=== PATIENT | female | born 1955 | race Caucasian/White ===

== ENCOUNTER 2017-01-09 13:27 | Outpatient (CLI) ==
[2015-11-21 15:39] VITALS: BMI 36.0
--- NOTE | 2017-01-12 08:41 | MAMMO ---
EXAM: Bilateral digital screening mammogram History: Screening Comparison: Bilateral mammogram 06/19/2015 Findings: MLO and CC views of bilateral breasts demonstrate predominately fatty replaced breast par enchyma. Stable benign bilateral breast calcifications. There are no dominant masses, no suspiciou s microcalcifications and no architectural distortions Impression: Benign stable mammogram. Recommend followup routine screening mammography in 1 year. BIRADS 2
== END 2017-01-09 13:28 | disposition home or self-care (01) ==
LOC: RAD 13:27
PROVIDERS: ATTEND Internal Medicine
DX: Z12.31 Encounter for screening mammogram for malignant neoplasm of breast (principal)

== ENCOUNTER 2017-02-03 00:01 | Outpatient (POV) ==
[2015-11-21 15:39] VITALS: BMI 36.0
== END 2017-02-03 00:02 ==
LOC: OUTPT 00:01
PROVIDERS: ATTEND Otolaryngology
DX: H91.90 Unspecified hearing loss, unspecified ear (principal)
CPT/HCPCS: 92557; 92567

== ENCOUNTER 2017-08-20 11:11 | Emergency (ER) ==
[2017-08-20 11:15] VITALS: BP 110/78; TEMP 98.1; BMI 36.6
[2017-08-20 11:45] LABS: BASOPHILS % (AUTO) 0.4 % (0.0-3.0); EOSINOPHILS # (AUTO) 0.1 K/ul (0.0-0.7); EOSINOPHILS % (AUTO) 0.5 % (0.0-7.0); HEMATOCRIT 38.1 % (37.0-47.0); HEMOGLOBIN 13.3 g/dl (12.0-16.0); IMMATURE GRANULOCYTE % (AUTO) 0.4 % (0.0-5.0); LYMPHOCYTES # (AUTO) 2.5 K/uL (0.60-3.4); LYMPHOCYTES % (AUTO) 22.2 (10.0-50.0); MEAN CORPUSCULAR HEMOGLOBIN 30.9 pg (27.0-31.0); MEAN CORPUSCULAR HGB CONC 34.9 (31.8-35.4); MEAN CORPUSCULAR VOLUME 88.4 fl (81.0-99.0); MONOCYTES # (AUTO) 0.9 K/uL (0.4-2.0); MONOCYTES % (AUTO) 7.9 (0-10); NEUTROPHILS # (AUTO) 7.7 K/ul (2.0-6.9); NEUTROPHILS % (AUTO) 68.6; PLATELET COUNT 261 10^3/uL (140-440); RED BLOOD COUNT 4.31 10^6/ul (4.20-5.40); WHITE BLOOD COUNT 11.16 K/ul (4.6-10.2)
--- NOTE | 2017-08-20 11:48 | ED.PDOC ---
General ED Provider: Dr. DEVENDRA BALDERRAMA Chief Complaint: Abdominal Pain Stated Complaint: ABDOMINAL PAIN RLQ Time Seen by Physician: 11:20 (PAIN COSISTANT WITH PRIOR DIVERTICULAR ATTACK) Mode of Arrival: Walk-In Information Source: Patient Exam Limitations: No limitations Primary Care Provider: THEODORE VICTORIA Nursing and Triage Documentation Reviewed and Agree: Yes GI Complaint Exam - Abdominal Pain Complaint/Exam Onset: Gradual Duration: 1 DAY RLQ Timing: Constant Initial Severity: Moderate Current Severity: Moderate Location of Pain: RLQ Radiates To: Reports: RLQ Character: Reports: Aching, Cramping Aggravating: Reports: Food Alleviating: Reports: Rest Associated Signs and Symptoms: Reports: Diarrhea. Denies: Diaphoresis, Fever, Cough, Chest pain, Dizziness, Back pain, Constipation, Blood in stool, Dysuria, Urinary frequency, Decreased urine output, Decreased appetite, Vaginal bleeding , Vaginal discharge, Nausea, Vomiting, Sore throat, Decreased activity Related History: Reports: Similar episode (DIVERTICULITIS PER PT'S ACCOUNT) AAA Risk Factors: Reports: Hypertension Cardiac Risk Factors: Reports: CAD Ectopic Risk Factors: Reports: None Ovarian Torsion Risk Factors: Reports: None Surgical Obstruction Risk Factors: Reports: None Related Surgical History: Reports: None Patient Rh Status: Unknown Abdominal Findings: Present: None Differential Diagnoses: ACS, AMI, Appendicitis, Bowel Obstruction, Constipation Review of Systems - Review Of Systems Constitutional: Reports: No symptoms Eyes: Reports: No symptoms Ears, Nose, Mouth, Throat: Reports: No symptoms Respiratory: Reports: No symptoms Cardiac: Reports: No symptoms GI: Reports: Abdominal pain, Diarrhea, Poor appetite : Reports: No symptoms Musculoskeletal: Reports: No symptoms Skin: Reports: No symptoms Neurological: Reports: No symptoms Endocrine: Reports: No symptoms Hematologic/Lymphatic: Reports: No symptoms All Other Systems: Reviewed and Negative Past Medical History - Past Medical History Endocrine: Reports: Dyslipidemia Cardiovascular: Reports: CAD, [place], Hypertension Respiratory: Reports: None Hematological: Reports: None Gastrointestinal: Reports: Diverticulitis Genitourinary: Reports: None Neuro/Psych: Reports: TIA, Depression Musculoskeletal: Reports: Arthritis Cancer: Reports: None Last Menstrual Period: HYSTERECTOMY Other Pertinent Past Medical History: coronary embolism - Surgical History General Surgical History: Reports: Hysterectomy, Orthopedic (CERVICAL FUSION). Denies: CABG (HEART CATH, coronary embolism) - Family History Family History: Reports: Unknown - Social History Smoking Status: Never smoker Hx Substance Use: No Alcohol Screening: None - Immunizations Tetanus Shot up to Date: Yes Physical Exam - Physical Exam Appearance: Well-appearing, No pain distress, Well-nourished Eyes: PANCHITO, EOMI, Conjunctiva clear ENT: Ears normal, Nose normal, Oropharynx normal Respiratory: Airway patent, Breath sounds clear, Breath sounds equal, Respirations nonlabored Cardiovascular: RRR, Pulses normal, No rub, No murmur GI/: Tender (RLQ) Musculoskeletal: Normal strength, ROM intact, No edema, No calf tenderness Skin: Warm, Dry, Normal color Neurological: Sensation intact, Motor intact, Reflexes intact, Cranial nerves intact, Alert, Oriented Psychiatric: Affect appropriate, Mood appropriate Critical Care Note - Critical Care Note Total Time (mins): 0 Course - Course Orders, Labs, Meds: Orders Category Date Time Status AMYLASE Stat LAB 08/20/17 11:32 Ordered CBC W/ AUTO DIFF Stat LAB 08/20/17 11:32 Ordered COMPREHENSIVE METABOLIC PANEL Stat LAB 08/20/17 11:32 Ordered LIPASE Stat LAB 08/20/17 11:[address] ABDOMEN/PELVIS WO CONTRAST Stat RADS 08/20/17 11:32 Ordered Vital Signs: Temp Pulse Resp BP Pulse Ox 08/20/17 11:12 98.1 F 98 H 20 110/78 95 Departure - Departure Discharge Problem: Abdominal pain Instructions: Abdominal Pain (ED) Condition: Good Pt referred to PMD for follow-up: Yes Additional Instructions: Please call your Family Physician as soon as possible to schedule a follow-up appointment. Allergies/Adverse Reactions: Allergies clonidine Adverse Reaction (Verified 08/20/17 11:15) clopidogrel bisulfate [From Plavix] Adverse Reaction (Verified 08/20/17 11:15) Latex, Natural Rubber Adverse Reaction (Verified 08/20/17 11:15) oxycodone HCl [From OxyContin] Adverse Reaction (Verified 08/20/17 11:15) Penicillins Adverse Reaction (Verified 08/20/17 11:15) senna Adverse Reaction (Verified 08/20/17 11:15) Ernmqio-Old-Dbf Reductase Inhibitor Adverse Reaction (Verified 08/20/17 11:15) antipsychotics Adverse Reaction (Uncoded 08/20/17 11:15) Home Medications: Ambulatory Orders Alprazolam [Xanax] 0.5 mg PO PRN PRN 03/02/15 Alprazolam [Xanax] 2 mg PO BEDTIME 11/20/14 Bisoprolol Fumarate/Hctz [Ziac 5-6.25 mg] 1 tab PO DAILY 11/20/14 Doxepin HCl 10 mg PO BEDTIME 11/20/14 Furosemide [Lasix] 40 mg PO DAILY 11/20/14 Losartan Potassium 150 mg PO DAILY 11/20/14 Multivit-Min/FA/Lycopene/Lut [Centrum Silver Tablet] 1 tab PO DAILY 11/20/14 Niacin [Niaspan] 1,000 mg PO BEDTIME 11/20/14 Potassium Chloride [Klor-Con M15] 30 meq PO DAILY 11/20/14 Trazodone HCl 200 mg PO BEDTIME 11/20/14 Gabapentin [Neurontin] 300 mg PO BEDTIME 11/21/15 Cholecalciferol (Vitamin D3) [Vitamin D3] 2,000 units PO DAILY 11/23/15 Lactobacillus Acidophilus [Probiotic] 1 each PO DAILY 11/23/15 Magnesium Oxide [Mag-Ox] 400 mg PO DAILY 11/23/15 Vilazodone HCl [Viibryd] 60 mg PO QAM 11/23/15 Disposition Discussed With: Patient, Family
[2017-08-20 12:13] LABS: ALBUMIN 3.3 g/dL (3.4-5.0); ALBUMIN/GLOBULIN RATIO 0.79; ANION GAP 14.6; BILIRUBIN,TOTAL 0.84 mg/dL (0.00-1.20); BUN/CREATININE RATIO 14.6; CALCIUM 8.8 mg/dL (8.2-10.2); CREATININE 0.89 mg/dL (0.60-1.30); POTASSIUM 3.6 mmol/L (3.5-5.10); TOTAL PROTEIN 7.5 g/dL (5.8-8.1)
[2017-08-20] MEDS ORDERED: ZOFRAN 4 MG/2 ML IVP STA ×2 (12:54→16:10)
[2017-08-20] MEDS ORDERED: DILAUDID 2 MG/ML SYRINGE IVP STA (12:54)
[2017-08-20] MEDS ORDERED: DILAUDID 2 MG/ML SYRINGE IM PRN (13:04)
[2017-08-20] MEDS ORDERED: ZOFRAN 4 MG/2 ML IM STA (13:04)
[2017-08-20] MEDS ORDERED: MORPHINE 2 MG/ML SYRINGE IM STA (13:06)
--- NOTE | 2017-08-20 14:00 | CT ---
EXAM: CT of the abdomen pelvis with contrast History: Right lower quadrant abdominal pain. Comparison: CT abdomen pelvis 11/23/2015 Technique: Multiplanar CT images through the abdomen pelvis were obtained without the administration of IV contrast Findings: Lung bases are free of consolidation. No acute osseous abnormalities. Moderate to severe degenerate changes of the left hip joint. Severe degenerative disc disease at L5-S1. Status post cholecystectomy. Mild atherosclerotic vascular calcifications. No peripancreatic inflam mation. Calcified granulomas within the spleen. The liver is fatty. No renal stones and no hydrone phrosis. Adrenal glands are unremarkable. No bowel obstruction. The appendix is not dilated or inf lamed. Colonic diverticulosis. There is inflammation surrounding the sigmoid colon within the pelvi s. No abscess. No bladder wall thickening. Uterus is not seen. No free air. Impression: 1. Acute uncomplicated sigmoid diverticulitis. 2. Hepatic steatosis.
[2017-08-20] MEDS ORDERED: ROCEPHIN 1 GM in SODIUM CHLORIDE 50 ML IV STA (15:27)
[2017-08-20] MEDS ORDERED: ROCEPHIN ONE ×2 (15:29→15:56)
[2017-08-20] MEDS ORDERED: FLAGYL PO STA (15:30)
[2017-08-20] MEDS ORDERED: MORPHINE 4 MG/ML VIAL IVP STA (15:33)
== END 2017-08-20 16:41 | disposition home or self-care (01) ==
LOC: ED 11:11
DX: R10.31 Right lower quadrant pain (principal); R19.7 Diarrhea, unspecified; I10 Essential (primary) hypertension; I25.10 Atherosclerotic heart disease of native coronary artery without angina pectoris; E78.5 Hyperlipidemia, unspecified; I25.2 Old myocardial infarction; Z79.899 Other long term (current) drug therapy; Z86.73 Personal history of transient ischemic attack (TIA), and cerebral infarction without residual deficits; Z87.19 Personal history of other diseases of the digestive system
CPT/HCPCS: 36415; 80053; 82150; 83690; 85025; 96365; 96372; 96375; 99285

== ENCOUNTER 2017-08-22 17:28 | Emergency (ER) ==
[2017-08-22 17:28] VITALS: BMI 36.6
[2017-08-22 17:35] VITALS: BP 122/76; TEMP 97.6
[2017-08-22] MEDS ORDERED: SODIUM CHLORIDE 1,000 ML IV STA ×2 (17:45→19:10)
[2017-08-22 18:04] LABS: BASOPHILS # (AUTO) 0.1 K/uL (0-0.2); BASOPHILS % (AUTO) 0.6 % (0.0-3.0); EOSINOPHILS # (AUTO) 0.1 K/ul (0.0-0.7); EOSINOPHILS % (AUTO) 0.6 % (0.0-7.0); HEMATOCRIT 38.4 % (37.0-47.0); HEMOGLOBIN 13.3 g/dl (12.0-16.0); IMMATURE GRANULOCYTE % (AUTO) 0.5 % (0.0-5.0); LYMPHOCYTES # (AUTO) 2.2 K/uL (0.60-3.4); LYMPHOCYTES % (AUTO) 26.5 (10.0-50.0); MEAN CORPUSCULAR HEMOGLOBIN 30.7 pg (27.0-31.0); MEAN CORPUSCULAR HGB CONC 34.6 (31.8-35.4); MEAN CORPUSCULAR VOLUME 88.7 fl (81.0-99.0); MONOCYTES # (AUTO) 0.6 K/uL (0.4-2.0); MONOCYTES % (AUTO) 6.8 (0-10); NEUTROPHILS # (AUTO) 5.5 K/ul (2.0-6.9); PLATELET COUNT 301 10^3/uL (140-440); RED BLOOD COUNT 4.33 10^6/ul (4.20-5.40); WHITE BLOOD COUNT 8.39 K/ul (4.6-10.2)
[2017-08-22] MEDS ORDERED: MORPHINE 4 MG/ML VIAL IVP STA (18:13)
[2017-08-22] MEDS ORDERED: ZOFRAN 4 MG/2 ML IVP STA (18:14)
[2017-08-22 18:24] LABS: ALBUMIN 3.3 g/dL (3.4-5.0); ALBUMIN/GLOBULIN RATIO 0.73; ANION GAP 17.7; BILIRUBIN,TOTAL 0.51 mg/dL (0.00-1.20); BUN/CREATININE RATIO 15.9; CALCIUM 9.1 mg/dL (8.2-10.2); CREATININE 0.88 mg/dL (0.60-1.30); POTASSIUM 3.7 mmol/L (3.5-5.10); TOTAL PROTEIN 7.8 g/dL (5.8-8.1)
--- NOTE | 2017-08-22 19:08 | ED.PDOC ---
General ED Provider: Dr. MELISSA SALDIVAR Chief Complaint: Abdominal Pain Stated Complaint: Patient is a 62 year old female who comes to the ER with Abdominal pain for the last few days. She was seen yesterday in the ER and had A CT scan which showed uncomplicated diverticulitis. She return due to severe abdominal pain. Has tried Hydrocodone but has not helped. She has been taking her antibiotics as prescribed. Time Seen by Physician: 19:05 Mode of Arrival: Wheelchair Information Source: Patient Exam Limitations: No limitations Primary Care Provider: THEODORE VICTORIA Nursing and Triage Documentation Reviewed and Agree: Yes Review of Systems - Review Of Systems Constitutional: Reports: No symptoms Eyes: Reports: No symptoms Ears, Nose, Mouth, Throat: Reports: No symptoms Respiratory: Reports: No symptoms Cardiac: Reports: No symptoms GI: Reports: Abdominal pain, Constipated, Nausea, Poor appetite, Poor fluid intake : Reports: No symptoms Musculoskeletal: Reports: No symptoms Skin: Reports: No symptoms Neurological: Reports: Anxiety Endocrine: Reports: No symptoms Hematologic/Lymphatic: Reports: No symptoms All Other Systems: Reviewed and Negative Past Medical History - Past Medical History Endocrine: Reports: Dyslipidemia Cardiovascular: Reports: CAD, [place], Hypertension Respiratory: Reports: None Hematological: Reports: None Gastrointestinal: Reports: Diverticulitis Genitourinary: Reports: None Neuro/Psych: Reports: TIA, Depression Musculoskeletal: Reports: Arthritis Cancer: Reports: None Last Menstrual Period: NA Other Pertinent Past Medical History: coronary embolism - Surgical History General Surgical History: Reports: Hysterectomy, Orthopedic (CERVICAL FUSION). Denies: CABG (HEART CATH, coronary embolism) - Family History Family History: Reports: Unknown - Social History Smoking Status: Never smoker Hx Substance Use: No Alcohol Screening: None Physical Exam - Physical Exam Appearance: Ill-appearing, Obese Ill-appearing: Moderate Pain Distress: Severe Eyes: PANCHITO, EOMI, Conjunctiva clear ENT: Dry mucosa Neck: Supple Respiratory: Airway patent, Breath sounds clear, Breath sounds equal, Respirations nonlabored Cardiovascular: RRR, Pulses normal, No rub, No murmur GI/: Soft, Tender (mild diffuse) Musculoskeletal: Normal strength, ROM intact, No edema, No calf tenderness Skin: Warm, Dry, Normal color Neurological: Sensation intact, Alert, Oriented Psychiatric: Anxious Re-Evaluation - Re-Evaluation Time of Re-Evaluation: 19:33 Status: Improved Vital Signs Stable: Yes Pain Level: gone Critical Care Note - Critical Care Note Total Time (mins): 0 Course - Course Hematology/Chemistry: 08/22/17 17:55 08/22/17 17:55 Orders, Labs, Meds: Lab Review 08/22/17 12 17:55 17:55 WBC 8.39 RBC 4.33 Hgb 13.3 Hct 38.4 MCV 88.7 MCH 30.7 MCHC 34.6 RDW Coeff of Mayra 11.9 Plt Count 301 Immature Gran % (Auto) 0.5 Neut % (Auto) 65.0 Lymph % (Auto) 26.5 [place] % (Auto) 6.8 Eos % (Auto) 0.6 Baso % (Auto) 0.6 Immature Gran # (Auto) 0.0 Neut # 5.5 Lymph # 2.2 [place] # 0.6 Eos # 0.1 Baso # 0.1 Sodium 139 Potassium 3.7 Chloride 103 Carbon Dioxide 22 L Anion Gap 17.7 BUN 14 Creatinine 0.88 Estimated GFR (MDRD) 66.00 BUN/Creatinine Ratio 15.90 Glucose 96 Calcium 9.1 Total Bilirubin 0.51 AST 22 ALT 21 Alkaline Phosphatase 45 L Total Protein 7.8 Albumin 3.3 L Globulin 4.5 Albumin/Globulin Ratio 0.73 Amylase 34 Lipase 20 Orders Category Date Time Status ED IV/MEDIPORT/POWERPORT .ONCE EMERGENCY 08/22/17 17:45 Active AMYLASE Stat LAB 08/22/17 17:55 Completed CBC W/ AUTO DIFF Stat LAB 08/22/17 17:55 Completed COMPREHENSIVE METABOLIC PANEL Stat LAB 08/22/17 17:55 Completed LIPASE Stat LAB 08/22/17 17:55 Completed URINALYSIS C & S IF INDICATED Stat LAB 08/22/17 17:45 Uncollected 0.9 % Sodium Chloride [Saline Flush] MEDS 08/22/17 17:45 Ordered 1 syr IVF PRN PRN Morphine Sulfate [Morphine 4 mg/ml Vial] MEDS 08/22/17 18:13 Discontinued 4 mg IVP ONCE STA Ondansetron HCl/Pf [Zofran 4 mg/2 ml] MEDS 08/22/17 18:14 Discontinued 4 mg IVP ONCE STA Sodium Chloride 0.9% [Sodium Chloride] 1,000 ml MEDS 08/22/17 17:45 Discontinued IV BOLUS Sodium Chloride 0.9% [Sodium Chloride] 1,000 ml MEDS 08/22/17 19:10 Active IV BOLUS Medications Generic Name Dose Route Start Last Admin Trade Name Freq PRN Reason Stop Dose Admin Sodium Chloride 1,000 mls @ 1,000 mls/hr 08/22/17 19:10 08/22/17 19:12 Sodium Chloride IV 08/22/17 20:09 1,000 mls/hr BOLUS STA Administration Sodium Chloride 1 syr 08/22/17 17:45 Saline Flush IVF PRN PRN To flush IV Discontinued Medications Generic Name Dose Route Start Last Admin Trade Name Freq PRN Reason Stop Dose Admin Sodium Chloride 1,000 mls @ 1,000 mls/hr 08/22/17 17:45 08/22/17 18:20 Sodium Chloride IV 08/22/17 18:44 1,000 mls/hr BOLUS STA Administration Morphine Sulfate 4 mg 08/22/17 18:13 08/22/17 18:42 Morphine 4 Mg/Ml Vial IVP 08/22/17 18:14 4 mg ONCE STA Administration Ondansetron HCl 4 mg 08/22/17 18:14 08/22/17 18:39 Zofran 4 Mg/2 Ml IVP 08/22/17 18:15 4 mg ONCE STA Administration Vital Signs: Temp Pulse Resp BP Pulse Ox 08/22/17 17:28 97.6 F 74 16 122/76 93 L Departure - Departure Time of Disposition: 19:30 Disposition: HOME SELF-CARE Discharge Problem: Diverticulitis Qualifiers: Diverticulitis site: large intestine Diverticulitis bleeding: unspecified bleeding status Diverticulitis complication: without perforation or abscess Qualified Code(s): K57.32 - Diverticulitis of large intestine without perforation or abscess without bleeding Instructions: Diverticulitis (ED), Diverticulitis Diet (ED) Condition: Stable Pt referred to PMD for follow-up: Yes (3 days ) Additional Instructions: Push fluids Follow up with PCP in 3 days Continue your antibiosis as prescribed. Allergies/Adverse Reactions: Allergies clonidine Adverse Reaction (Verified 08/22/17 17:43) clopidogrel bisulfate [From Plavix] Adverse Reaction (Verified 08/22/17 17:43) Latex, Natural Rubber Adverse Reaction (Verified 08/22/17 17:43) oxycodone HCl [From OxyContin] Adverse Reaction (Verified 08/22/17 17:43) Penicillins Adverse Reaction (Verified 08/22/17 17:43) senna Adverse Reaction (Verified 08/22/17 17:43) Dhalxid-Cai-Hnp Reductase Inhibitor Adverse Reaction (Verified 08/22/17 17:43) antipsychotics Adverse Reaction (Uncoded 08/22/17 17:43) Home Medications: Ambulatory Orders Alprazolam [Xanax] 0.5 mg PO PRN PRN 11/20/14 Alprazolam [Xanax] 2 mg PO BEDTIME 11/20/14 Bisoprolol Fumarate/Hctz [Ziac 5-6.25 mg] 1 tab PO DAILY 11/20/14 Doxepin HCl 10 mg PO BEDTIME 11/20/14 Furosemide [Lasix] 40 mg PO DAILY 11/20/14 Losartan Potassium 150 mg PO DAILY 11/20/14 Multivit-Min/FA/Lycopene/Lut [Centrum Silver Tablet] 1 tab PO DAILY 11/20/14 Niacin [Niaspan] 1,000 mg PO BEDTIME 11/20/14 Potassium Chloride [Klor-Con M15] 30 meq PO DAILY 11/20/14 Trazodone HCl 200 mg PO BEDTIME 11/20/14 Gabapentin [Neurontin] 300 mg PO BEDTIME 11/21/15 Cholecalciferol (Vitamin D3) [Vitamin D3] 2,000 units PO DAILY 11/23/15 Lactobacillus Acidophilus [Probiotic] 1 each PO DAILY 11/23/15 Magnesium Oxide [Mag-Ox] 400 mg PO DAILY 11/23/15 Vilazodone HCl [Viibryd] 60 mg PO QAM 11/23/15 Ciprofloxacin HCl [Cipro] 500 mg PO Q12HR #14 tablet 08/20/17 Hydrocodone/Acetaminophen [[place] 10-325 Tablet] 1 each PO Q8HR #14 tablet Metronidazole [Flagyl] 500 mg PO Q6HR #30 tablet 08/20/17 Disposition Discussed With: Patient, Family
== END 2017-08-22 20:14 | disposition home or self-care (01) ==
LOC: ED 17:28
DX: K57.32 Diverticulitis of large intestine without perforation or abscess without bleeding (principal); Z79.899 Other long term (current) drug therapy
CPT/HCPCS: 36415; 80053; 82150; 83690; 85025; 96361; 96374; 96375; 99283

== ENCOUNTER 2017-08-24 12:41 | Emergency (ER) ==
[2017-08-24 12:57] VITALS: BP 151/92; TEMP 97.8; BMI 37.8
[2017-08-24 13:34] LABS: BASOPHILS # (AUTO) 0.1 K/uL (0-0.2); EOSINOPHILS # (AUTO) 0.1 K/ul (0.0-0.7); EOSINOPHILS % (AUTO) 0.8 % (0.0-7.0); HEMATOCRIT 37.8 % (37.0-47.0); HEMOGLOBIN 13.4 g/dl (12.0-16.0); IMMATURE GRANULOCYTE % (AUTO) 0.5 % (0.0-5.0); LYMPHOCYTES # (AUTO) 2.7 K/uL (0.60-3.4); LYMPHOCYTES % (AUTO) 43.6 (10.0-50.0); MEAN CORPUSCULAR HEMOGLOBIN 30.5 pg (27.0-31.0); MEAN CORPUSCULAR HGB CONC 35.4 (31.8-35.4); MEAN CORPUSCULAR VOLUME 85.9 fl (81.0-99.0); MONOCYTES # (AUTO) 0.6 K/uL (0.4-2.0); MONOCYTES % (AUTO) 9.9 (0-10); NEUTROPHILS # (AUTO) 2.7 K/ul (2.0-6.9); NEUTROPHILS % (AUTO) 44.2; PLATELET COUNT 341 10^3/uL (140-440); WHITE BLOOD COUNT 6.19 K/ul (4.6-10.2)
[2017-08-24 13:50] LABS: ALBUMIN 3.3 g/dL (3.4-5.0); ALBUMIN/GLOBULIN RATIO 0.8; ANION GAP 13.5; BILIRUBIN,TOTAL 0.56 mg/dL (0.00-1.20); BUN/CREATININE RATIO 7.86; CALCIUM 9.1 mg/dL (8.2-10.2); CREATININE 0.89 mg/dL (0.60-1.30); POTASSIUM 3.5 mmol/L (3.5-5.10); TOTAL PROTEIN 7.4 g/dL (5.8-8.1)
--- NOTE | 2017-08-24 14:03 | CT ---
EXAM: CT of the abdomen pelvis with contrast History: Abdominal pain. Comparison: CT abdomen pelvis 08/20/2017 Technique: Multiplanar CT images through the abdomen pelvis were obtained following administration o f IV contrast Findings: Lung bases are free of consolidation. No acute osseous abnormalities. Status post cholecystectomy. Fatty liver. Pancreas and adrenal glands are unremarkable. No renal m asses. Spleen is unremarkable. No dilated loops of bowel. No free air. No ascites. Bladder is no t well distended. Colonic diverticulosis. Persistent but improving diverticulitis of the sigmoid co [place]. No abscess. No perirectal inflammation. No renal masses. Uterus is not seen Impression: 1. Persistent but improving diverticulitis of the sigmoid colon. No abscess. 2. Hepatic steatosis
--- NOTE | 2017-08-24 14:40 | ED.PDOC ---
General ED Provider: Dr. DEVENDRA BALDERRAMA Chief Complaint: Abdominal Pain Stated Complaint: ABDOMINAL PAIN Time Seen by Physician: 13:00 (PT THINKS SHE IS DEHYDRATED ) Mode of Arrival: Wheelchair Information Source: Patient, Family Exam Limitations: No limitations Primary Care Provider: THEODORE VICTORIA Nursing and Triage Documentation Reviewed and Agree: Yes (SEEN IN ED BY MYSELF IN ED AND ON THURSDAY BY YARIEL) GI Complaint Exam - Abdominal Pain Complaint/Exam Onset: Gradual Duration: AT LEAST 1 WEEK RLQ Symptoms Are: Still present Timing: Intermittent Initial Severity: Mild Current Severity: Mild Location of Pain: RLQ Character: Reports: Aching Aggravating: Reports: None Alleviating: Reports: None Associated Signs and Symptoms: Denies: Diaphoresis, Fever, Cough, Chest pain, Dizziness, Back pain, Constipation, Blood in stool, Dysuria, Urinary frequency, Decreased urine output, Decreased appetite, Vaginal bleeding, Vaginal discharge , Nausea, Vomiting, Diarrhea, Sore throat, Decreased activity Related History: Reports: Similar episode AAA Risk Factors: Reports: None Cardiac Risk Factors: Reports: Hypertension, Prior [place], CAD Ectopic Risk Factors: Reports: None Ovarian Torsion Risk Factors: Reports: None Surgical Obstruction Risk Factors: Reports: None Related Surgical History: Reports: None Patient Rh Status: Unknown Abdominal Findings: Present: None Differential Diagnoses: Bowel Obstruction, Diverticulitis Review of Systems - Review Of Systems Constitutional: Reports: No symptoms Eyes: Reports: No symptoms Ears, Nose, Mouth, Throat: Reports: No symptoms Respiratory: Reports: No symptoms Cardiac: Reports: No symptoms GI: Reports: Abdominal pain (RLQ) : Reports: No symptoms Musculoskeletal: Reports: No symptoms Skin: Reports: No symptoms Neurological: Reports: No symptoms Endocrine: Reports: No symptoms Hematologic/Lymphatic: Reports: No symptoms All Other Systems: Reviewed and Negative Past Medical History - Past Medical History Previously Healthy: Yes Endocrine: Reports: Dyslipidemia Cardiovascular: Reports: CAD, [place], Hypertension Respiratory: Reports: None Hematological: Reports: None Gastrointestinal: Reports: Diverticulitis Genitourinary: Reports: None Neuro/Psych: Reports: TIA, Depression Musculoskeletal: Reports: Arthritis Cancer: Reports: None Last Menstrual Period: NA Other Pertinent Past Medical History: coronary embolism - Surgical History General Surgical History: Reports: Hysterectomy, Orthopedic (CERVICAL FUSION). Denies: CABG (HEART CATH, coronary embolism) - Family History Family History: Reports: Unknown - Social History Smoking Status: Never smoker Hx Substance Use: No Alcohol Screening: None Physical Exam - Physical Exam Appearance: Well-appearing, No pain distress, Well-nourished Eyes: PANCHITO, EOMI, Conjunctiva clear ENT: Ears normal, Nose normal, Oropharynx normal Respiratory: Airway patent, Breath sounds clear, Breath sounds equal, Respirations nonlabored Cardiovascular: RRR, Pulses normal, No rub, No murmur GI/: Soft, Nontender, No masses, Bowel sounds normal, No Organomegaly Musculoskeletal: Normal strength, ROM intact, No edema, No calf tenderness Skin: Warm, Dry, Normal color Neurological: Sensation intact, Motor intact, Reflexes intact, Cranial nerves intact, Alert, Oriented Psychiatric: Affect appropriate, Mood appropriate Interpretation - Radiology Interpretation Radiology Interpretation By: Radiologist Radiology Results: No acute changes Physician Notification - Case Discussed Physician Notified: PMD Time of Notification: 14:42 (LABS AND IMAGING DISCUSSED ) Critical Care Note - Critical Care Note Total Time (mins): 0 Course - Course Hematology/Chemistry: 08/24/17 13:20 08/24/17 13:20 Orders, Labs, Meds: Lab Review 08/24/17 08/24/17 13:20 13:20 WBC 6.19 RBC 4.40 Hgb 13.4 Hct 37.8 MCV 85.9 MCH 30.5 MCHC 35.4 RDW Coeff of Mayra 11.9 Plt Count 341 Immature Gran % (Auto) 0.5 Neut % (Auto) 44.2 Lymph % (Auto) 43.6 [place] % (Auto) 9.9 Eos % (Auto) 0.8 Baso % (Auto) 1.0 Immature Gran # (Auto) 0.0 Neut # 2.7 Lymph # 2.7 [place] # 0.6 Eos # 0.1 Baso # 0.1 Sodium 139 Potassium 3.5 Chloride 107 Carbon Dioxide 22 L Anion Gap 13.5 BUN 7 Creatinine 0.89 Estimated GFR (MDRD) 65.00 BUN/Creatinine Ratio 7.86 Glucose 129 H Calcium 9.1 Total Bilirubin 0.56 AST 34 ALT 21 Alkaline Phosphatase 45 L Total Protein 7.4 Albumin 3.3 L Globulin 4.1 Albumin/Globulin Ratio 0.80 Orders Category Date Time Status NPO REMINDER: IMAGING ONCE CARE 08/24/17 13:00 Active BLOOD CULTURE Stat LAB 08/24/17 13:20 Received CBC W/ AUTO DIFF Stat LAB 08/24/17 13:20 Completed COMPREHENSIVE METABOLIC PANEL Stat LAB 08/24/17 13:[address] ABDOMEN/PELVIS W CONTRAST Stat RADS 08/24/17 13:00 Completed Vital Signs: Temp Pulse Resp BP Pulse Ox 08/24/17 12:45 97.8 F 61 20 151/92 H 98 Departure - Departure Time of Disposition: 14:42 (PT DECLINED PAIN MEDS SEEN WITH NURSING STAFF DOMINIQUE RN AT ALL TIMES ) Disposition: HOME SELF-CARE Discharge Problem: Diverticulitis Qualifiers: Diverticulitis site: large intestine Diverticulitis bleeding: without bleeding Diverticulitis complication: without perforation or abscess Qualified Code(s): K57.32 - Diverticulitis of large intestine without perforation or abscess without bleeding Instructions: Diverticulitis (ED) Condition: Good Pt referred to PMD for follow-up: Yes Additional Instructions: Please call your Family Physician as soon as possible to schedule a follow-up appointment. Allergies/Adverse Reactions: Allergies clonidine Adverse Reaction (Verified 08/24/17 12:45) clopidogrel bisulfate [From Plavix] Adverse Reaction (Verified 08/24/17 12:45) Latex, Natural Rubber Adverse Reaction (Verified 08/24/17 12:45) oxycodone HCl [From OxyContin] Adverse Reaction (Verified 08/24/17 12:45) Penicillins Adverse Reaction (Verified 08/24/17 12:45) senna Adverse Reaction (Verified 08/24/17 12:45) Ukjdnuv-Uei-Caz Reductase Inhibitor Adverse Reaction (Verified 08/24/17 12:45) antipsychotics Adverse Reaction (Uncoded 08/24/17 12:45) Home Medications: Ambulatory Orders Alprazolam [Xanax] 0.5 mg PO PRN PRN 11/20/14 Alprazolam [Xanax] 2 mg PO BEDTIME 11/20/14 Bisoprolol Fumarate/Hctz [Ziac 5-6.25 mg] 1 tab PO DAILY 11/20/14 Doxepin HCl 10 mg PO BEDTIME 11/20/14 Furosemide [Lasix] 40 mg PO DAILY 11/20/14 Losartan Potassium 150 mg PO DAILY 11/20/14 Multivit-Min/FA/Lycopene/Lut [Centrum Silver Tablet] 1 tab PO DAILY 11/20/14 Niacin [Niaspan] 1,000 mg PO BEDTIME 11/20/14 Potassium Chloride [Klor-Con M15] 30 meq PO DAILY 11/20/14 Trazodone HCl 200 mg PO BEDTIME 11/20/14 Gabapentin [Neurontin] 300 mg PO BEDTIME 11/21/15 Cholecalciferol (Vitamin D3) [Vitamin D3] 2,000 units PO DAILY 11/23/15 Lactobacillus Acidophilus [Probiotic] 1 each PO DAILY 11/23/15 Magnesium Oxide [Mag-Ox] 400 mg PO DAILY 11/23/15 Vilazodone HCl [Viibryd] 60 mg PO QAM 11/23/15 Ciprofloxacin HCl [Cipro] 500 mg PO Q12HR #14 tablet 08/20/17 Hydrocodone/Acetaminophen [[place] 10-325 Tablet] 1 each PO Q8HR #14 tablet Metronidazole [Flagyl] 500 mg PO Q6HR #30 tablet 08/20/17
== END 2017-08-24 15:19 | disposition home or self-care (01) ==
LOC: ED 12:41
DX: K57.32 Diverticulitis of large intestine without perforation or abscess without bleeding (principal); I10 Essential (primary) hypertension; I25.10 Atherosclerotic heart disease of native coronary artery without angina pectoris; E78.5 Hyperlipidemia, unspecified; I25.2 Old myocardial infarction; Z79.899 Other long term (current) drug therapy; Z86.73 Personal history of transient ischemic attack (TIA), and cerebral infarction without residual deficits
CPT/HCPCS: 36415; 80053; 85025; 87040; 99283

== ENCOUNTER 2017-11-02 15:42 | Inpatient (IN) ==
--- NOTE | 2017-11-02 16:28 | CT ---
EXAM: CT head without contrast. HISTORY: Initial presentation for head trauma due to a fall. COMPARISON: 11/20/2014. TECHNIQUE: Multiple axial images of the brain were obtained from the skull base through the vertex w ithout intravenous contrast. Multiplanar reformats were provided. FINDINGS: There is no intracranial hemorrhage or extraaxial collection. Parafalcine lipomas noted. The marino-white differentiation is maintained without evidence for acute large vascular territory infa rction. There are areas of periventricular and subcortical white matter low attenuation. The cortic al sulci and cerebral ventricles are symmetrically enlarged. The basal cisterns are well visualized. There is no hydrocephalus, mass effect, or midline shift. The paranasal sinuses and mastoid air ce lls are clear. The calvarium is intact. Since the prior study, there has been no significant interv al change. IMPRESSION: 1. No acute intracranial abnormality. 2. Chronic small vessel ischemic changes and atrophy.
--- NOTE | 2017-11-02 16:36 | CT ---
EXAM: CT chest without contrast. HISTORY: Cough. COMPARISON: Radiograph 01/10/2013. TECHNIQUE: Multiple axial images of the chest were obtained without intravenous contrast. Images we re reformatted in the sagittal and coronal planes. FINDINGS: Evaluation for lymphadenopathy is limited by lack of intravenous contrast. Calcified medi astinal and hilar lymph nodes present. Heart size is normal. There is a tiny pericardial effusion. Atherosclerotic calcifications are present. No consolidation, pleural effusion or pneumothorax identified. Calcified granulomatous changes are p resent. Limited images of the upper abdomen demonstrate no acute abnormality. ACDF changes are present. Deg enerative changes seen throughout the thoracic spine. IMPRESSION: No acute cardiopulmonary process.
--- NOTE | 2017-11-02 16:38 | CT ---
Exam: CT of the cervical spine without intravenous contrast. Comparison: 07/21/2013. Reason for exam: Fall with pain. FINDINGS: Operative changes are seen after anterior cervical discectomy and fusion spanning C5-C7 wi thout evidence of hardware complication. There is multilevel degenerative disease with osteophyte fo rmation and intervertebral body disc space height narrowing. The dens is intact. The prevertebral s oft tissues are within normal limits. Impression: 1. Operative changes are seen after ACDF spanning C5-C7 without evidence of hardware complication. 2. No acute fracture or listhesis. 3. Multilevel degenerative disease. Report faxed at [phone] hours on 11/02/2017.
[2017-11-02] MEDS ORDERED: SOLU-MEDROL 125 MG 250 MG in SODIUM CHLORIDE 50 ML IV ONE (17:48)
[2017-11-02] MEDS ORDERED: PERCOCET 10-325 PO PRN (17:49)
[2017-11-02] MEDS ORDERED: ZITHROMAX PO STA (17:49)
[2017-11-02] MEDS ORDERED: MORPHINE 4 MG/ML VIAL IVP PRN (17:55)
[2017-11-02] MEDS ORDERED: TYLENOL PO PRN (17:55)
[2017-11-02] MEDS ORDERED: NITROSTAT SL PRN (17:55)
[2017-11-02] MEDS ORDERED: ATROPINE SULFATE PFS IVP PRN (17:55)
[2017-11-02] MEDS ORDERED: VISTARIL INJ IM PRN (17:55)
--- NOTE | 2017-11-02 17:55 | ED.PDOC ---
General ED Provider: Dr. DEVENDRA BALDERRAMA Chief Complaint: Cough Stated Complaint: COUGH/ SYNCOP Time Seen by Physician: 15:56 Mode of Arrival: Stretcher Information Source: Patient, Family Exam Limitations: No limitations Primary Care Provider: THEODORE VICTORIA Nursing and Triage Documentation Reviewed and Agree: Yes Reviewed sepsis parameters & appropriate labs ordered?: Yes System Inflammatory Response Syndrome: Not Applicable Sepsis Protocol: For patient's 13 years and over: Temp is 96.8 and below OR 101 and greater Pulse >90 BPM Resp >20/minute Acutely Altered Mental Status Are patient's symptoms suggestive of a new infection, such as: -Pneumonia -Skin, Soft Tissue -Endocarditis -UTI -Bone, Joint Infection -Implantable Device -Acute Abdominal Infection -Wound Infection -Meningitis -Blood Stream Catheter Infection -Unknown System Inflammatory Response Syndrome: Not Applicable Respiratory Complaint Exam - Respiratory Complaint/Exam Onset/Duration: 20 MIN PRIOR TO ARRIVAL HAD A SYNCOPAL EVENT AT PMD OFFICE Symptoms Are: Still present, Resolved Initial Severity: Moderate Current Severity: None Location: Chest (COUGH) Character: Reports: Non-productive cough, Dry cough Aggravating: Reports: None Alleviating: Reports: None Associated Signs and Symptoms: Denies: Rapid breathing, Dyspnea, Fever, Chills, Chest pain, Pleuritic chest pain, Wheezing, Hemoptysis, Dizziness, Calf pain, Calf swelling, Edema, URI, Nasal congestion, Hoarseness, Sinus discomfort, Vomiting, Sore throat, Weight loss, Decreased oral intake, Increased thirst, Increased appetite, Increased urination History of Healthcare-Acquired Pneumonia: No Related Surgical History: Reports: None Pulmonary Embolism Risk Factors: None Cardiac Risk Factors: Reports: Hypertension Pseudomonas Risk Factors: Reports: None Tuberculosis Risk Factors: Reports: None Status Asthmaticus Risk Factors: Reports: None Home Oxygen Use: No Recent Stress Test: No Recent Echo/LV Function: No Current Antibiotic Use: No Current Asthma Medication Use: No Respiratory Distress: None Inadequate Respiratory Effort: No Dysphagia Present: No Stridor Present: No JVD Present: No Retractions: Not Present Sinus Tenderness: None Grunting Respirations: No Kussmaul Respirations: No Differential Diagnoses: Asthma, Pneumonia, Bronchitis, Bronchospasm, URI, Influenza Review of Systems - Review Of Systems Constitutional: Reports: Malaise Eyes: Reports: No symptoms Ears, Nose, Mouth, Throat: Reports: No symptoms Respiratory: Reports: Cough Cardiac: Reports: No symptoms GI: Reports: No symptoms : Reports: No symptoms Musculoskeletal: Reports: No symptoms Skin: Reports: No symptoms Neurological: Reports: No symptoms Endocrine: Reports: No symptoms Hematologic/Lymphatic: Reports: No symptoms All Other Systems: Reviewed and Negative Past Medical History - Past Medical History Previously Healthy: Yes Endocrine: Reports: Dyslipidemia Cardiovascular: Reports: CAD, SC, Hypertension Respiratory: Reports: None Hematological: Reports: None Gastrointestinal: Reports: Diverticulitis Genitourinary: Reports: None Neuro/Psych: Reports: TIA, Depression Musculoskeletal: Reports: Arthritis Cancer: Reports: None Last Menstrual Period: hysterectomy Other Pertinent Past Medical History: coronary embolism - Surgical History General Surgical History: Reports: Hysterectomy, Orthopedic (CERVICAL FUSION). Denies: CABG (HEART CATH, coronary embolism) - Family History Family History: Reports: Unknown - Social History Smoking Status: Never smoker Hx Substance Use: No Alcohol Screening: None - Immunizations Tetanus Shot up to Date: Yes Physical Exam - Physical Exam Appearance: Well-appearing, No pain distress, Well-nourished Eyes: PANCHITO, EOMI, Conjunctiva clear ENT: Ears normal, Nose normal, Oropharynx normal Respiratory: Wheezes Cardiovascular: RRR, Pulses normal, No rub, No murmur GI/: Soft, Nontender, No masses, Bowel sounds normal, No Organomegaly Musculoskeletal: Normal strength, ROM intact, No edema, No calf tenderness Skin: Warm, Dry, Normal color Neurological: Sensation intact, Motor intact, Reflexes intact, Cranial nerves intact, Alert, Oriented Psychiatric: Affect appropriate, Mood appropriate Interpretation - Radiology Interpretation Radiology Interpretation By: Radiologist Radiology Results: No acute changes Physician Notification - Case Discussed Physician Notified: PMD Time of Notification: 17:56 Admit To: Inpatient Critical Care Note - Critical Care Note Total Time (mins): 0 Course - Course Hematology/Chemistry: 11/02/17 16:58 11/02/17 16:53 Orders, Labs, Meds: Lab Review 11/02/17 11/02/17 11/02/17 16:25 16:53 16:58 WBC 10.21 H RBC 4.62 Hgb 13.9 Hct 40.5 MCV 87.7 MCH 30.1 MCHC 34.3 RDW Coeff of Mayra 13.2 Plt Count 309 Immature Gran % (Auto) 0.6 Neut % (Auto) 53.8 Lymph % (Auto) 37.4 [place] % (Auto) 6.9 Eos % (Auto) 0.8 Baso % (Auto) 0.5 Immature Gran # (Auto) 0.1 Neut # 5.5 Lymph # 3.8 H [place] # 0.7 Eos # 0.1 Baso # 0.1 Sodium 142 Potassium 3.5 Chloride 108 H Carbon Dioxide 22 L Anion Gap 15.5 BUN 17 Creatinine 0.86 Estimated GFR (MDRD) 67.00 BUN/Creatinine Ratio 19.76 Glucose 107 Calcium 8.7 Total Bilirubin 0.7 AST 21 ALT 21 Alkaline Phosphatase 63 Total Creatine Kinase 36 Troponin I < 0.0100 Total Protein 7.5 Albumin 3.3 L Globulin 4.2 Albumin/Globulin Ratio 0.79 Influenza A (Rapid) Negative by naat Influenza B (Rapid) Negative by naat Orders Category Date Time Status EKG-(ED ONLY) Stat CARDIO 11/02/17 16:35 Completed NEBULIZER TREATMENT Routine CARDIO 11/02/17 17:48 Ordered BLOOD CULTURE (ED ONLY) Stat LAB 11/02/17 16:52 Received CBC W/ AUTO DIFF Stat LAB 11/02/17 16:58 Completed COMPREHENSIVE METABOLIC PANEL Stat LAB 11/02/17 16:53 Completed CREATINE KINASE Stat LAB 11/02/17 16:53 Completed FLU A/B MOLECULAR Stat LAB 11/02/17 16:25 Completed MOLECULAR GROUP A STREP Stat LAB 11/02/17 16:25 Completed TROPONIN I Stat LAB 11/02/17 16:53 Completed Alprazolam [Xanax] MEDS 11/02/17 21:00 Ordered 2 mg PO BEDTIME Azithromycin [Zithromax] MEDS 11/02/17 17:49 Stat 1,000 mg PO ONCE STA Furosemide [Lasix Tab] MEDS 11/03/17 09:00 Ordered 40 mg PO DAILY Ipratropium/Albuterol Neb [Duoneb] MEDS 11/02/17 18:00 Ordered 1 vial NEB RTQ6H Losartan Potassium [Cozaar] MEDS 11/03/17 09:00 Ordered 150 mg PO DAILY Magnesium Oxide [Mag-Ox] MEDS 11/03/17 09:00 Ordered 400 mg PO DAILY Methylprednisolone Sod Succ/Pf [Solu-Medrol 125 mg] 250 MEDS 11/02/17 17:48 Ordered mg 0.9 % Sodium Chloride [Sodium Chloride] 50 ml IV ONCE Oxycodone-Acetaminophen 10-325 [Percocet 10-325] MEDS 11/02/17 17:49 Ordered 1 tab PO Q6HR PRN Potassium Chloride [Klor-Con M15] MEDS 11/03/17 09:00 Ordered [address] CERVICAL SPINE W/O CONTRAST Stat RADS 11/02/17 16:[address] CHEST W/O CONTRAST Stat RADS 11/02/17 16:[address] HEAD W/O CONTRAST Stat RADS 11/02/17 16:06 Completed Medications Generic Name Dose Route Start Last Admin Trade Name Freq PRN Reason Stop Dose Admin Albuterol/Ipratropium 1 vial 11/02/17 18:00 Duoneb NEB RTQ6H TROY Furosemide 40 mg 11/03/17 09:00 Lasix Tab PO DAILY TROY Methylprednisolone Sodium 54 mls @ 100 mls/hr 11/02/17 17:48 Succinate 250 mg/ Sodium IV 11/02/17 18:20 Chloride ONCE ONE Losartan Potassium 150 mg 11/03/17 09:00 Cozaar PO DAILY TROY Magnesium Oxide 400 mg 11/03/17 09:00 Mag-Ox PO DAILY TROY Non-Formulary Medication 30 meq 11/03/17 09:00 Potassium Chloride [Klor-Con M15] PO DAILY TROY Non-Formulary Medication 2 mg 11/02/17 21:00 Alprazolam [Xanax] PO BEDTIME TROY Oxycodone/Acetaminophen 1 tab 11/02/17 17:49 Percocet 10-325 PO Q6HR PRN Analgesia Discontinued Medications Generic Name Dose Route Start Last Admin Trade Name Freq PRN Reason Stop Dose Admin Azithromycin 1,000 mg 11/02/17 17:49 Zithromax PO 11/02/17 17:50 ONCE STA Vital Signs: Temp Pulse Resp BP Pulse Ox 11/02/17 15:50 97.9 F 77 22 130/79 99 Departure - Departure Time of Disposition: 17:56 Disposition: ADMITTED INPATIENT Discharge Problem: Cough, Syncope Instructions: Syncope (ED) Condition: Good Pt referred to PMD for follow-up: Yes (ADMITT) IPMP verified?: No Additional Instructions: Please call your Family Physician as soon as possible to schedule a follow-up appointment. Allergies/Adverse Reactions: Allergies clonidine Adverse Reaction (Verified 08/24/17 12:45) clopidogrel bisulfate [From Plavix] Adverse Reaction (Verified 08/24/17 12:45) Latex, Natural Rubber Adverse Reaction (Verified 08/24/17 12:45) Penicillins Adverse Reaction (Verified 08/24/17 12:45) senna Adverse Reaction (Verified 08/24/17 12:45) [id number] Reductase Inhibitor Adverse Reaction (Verified 08/24/17 12:45) antipsychotics Adverse Reaction (Uncoded 08/24/17 12:45) Home Medications: Ambulatory Orders Alprazolam [Xanax] 0.5 mg PO PRN PRN 11/20/14 Alprazolam [Xanax] 2 mg PO BEDTIME 11/20/14 Bisoprolol Fumarate/Hctz [Ziac 5-6.25 mg] 1 tab PO DAILY 11/20/14 Doxepin HCl 10 mg PO BEDTIME 11/20/14 Furosemide [Lasix] 40 mg PO DAILY 11/20/14 Losartan Potassium 150 mg PO DAILY 11/20/14 Multivit-Min/FA/Lycopene/Lut [Centrum Silver Tablet] 1 tab PO DAILY 11/20/14 Niacin [Niaspan] 1,000 mg PO BEDTIME 11/20/14 Potassium Chloride [Klor-Con M15] 30 meq PO DAILY 11/20/14 Trazodone HCl 200 mg PO BEDTIME 11/20/14 Magnesium Oxide [Mag-Ox] 400 mg PO DAILY 11/23/15 Vilazodone HCl [Viibryd] 60 mg PO QAM 11/23/15 Oxycodone-Acetaminophen 10-325 [Percocet 10-325] 1 tab PO Q6HR PRN 11/02/17
[2017-11-02] MEDS: DUONEB NEB SCH ×2 (18:25→23:10)
[2017-11-02] MEDS ORDERED: SOLU-MEDROL 125 MG ONE (18:53)
[2017-11-02] MEDS ORDERED: SOLU-MEDROL 125 MG IVP STA (19:03)
[2017-11-02] MEDS ORDERED: XANAX ONE (19:31)
[2017-11-02 19:52] VITALS: BMI 36.4
[2017-11-02] MEDS: SOLU-CORTEF 250 MG IVP SCH (20:35)
[2017-11-02] MEDS: PHENERGAN WITH CODEINE 6.25/10 MG/5 ML PO SCH (20:52)
[2017-11-02] MEDS: DEXTROSE 5%-1/2NS IV SOLUTION 1,000 ML IV SCH (20:55)
[2017-11-02] MEDS ORDERED: ALPRAZOLAM 2 MG PO SCH (21:00)
[2017-11-03] MEDS: PHENERGAN WITH CODEINE 6.25/10 MG/5 ML PO SCH ×4 (02:58→20:20)
[2017-11-03] MEDS: SOLU-CORTEF 250 MG IVP SCH ×3 (04:47→20:20)
[2017-11-03] MEDS: DUONEB NEB SCH ×4 (05:10→23:10)
[2017-11-03] MEDS ORDERED: POTASSIUM CHLORIDE 30 MEQ PO SCH (09:00)
[2017-11-03] MEDS ORDERED: ZIAC 5-6.25 MG PO SCH (09:00)
[2017-11-03] MEDS ORDERED: MAG-OX PO SCH (09:00)
--- NOTE | 2017-11-03 09:56 | PN ---
DATE OF SERVICE: 11/02/17 - ADMITTING NOTE SUBJECTIVE: This 62-year-old female was in the office, seen as a walk-in patient because she was coughing and had bronchitis type of symptoms mostly flu type of symptoms with generalized aches and pains. The patient passed out while coughing. She was in the wheelchair and she toppled over to the floor. 911 was called and she was then hospitalized at [facility] through the emergency room. In the emergency room her workup was negative involving CT scan of the chest and CT of the head with all the routine lab tests. REVIEW OF SYSTEMS: CONSTITUTIONAL: Positive for weakness, fatigue. No night sweats. No malaise, lethargy. No fever or chills. HEENT: Eyes: No visual changes. No eye pain. No eye discharge. ENT: No runny nose. No epistaxis. No sinus pain. No sore throat. No odynophagia. No congestion. RESPIRATORY: Positive for dry cough and congestion. No hemoptysis. No shortness of breath. CARDIOVASCULAR: No angina symptoms. No CHF symptoms. No atypical chest pain for CAD. No palpitations. No orthopnea. GASTROINTESTINAL: No abdominal pain. No nausea or vomiting. No diarrhea or constipation. No hematemesis. No hematochezia. GENITOURINARY: No urgency. No frequency. No dysuria. No hematuria. No obstructive symptoms. No discharge. No pain. No significant abnormal bleeding. MUSCULOSKELETAL: No musculoskeletal pain; no joint swelling. NEUROLOGICAL: No headache. No neck pain. No syncope. No seizures. No dizziness. PSYCHIATRIC: Not anxious. No depression. No suicidal thoughts. No homicidal thoughts. SKIN: No rash. No lesions. No wounds. ENDOCRINE: No unexplained weight loss. No weight gain. HEMATOLOGIC/LYMPHATIC: No anemia. No purpura. No petechiae. No prolonged or excessive bleeding. No palpable lymph nodes. PHYSICAL EXAMINATION: GENERAL: The patient is oriented to time, place and person. HEENT: Head normocephalic, atraumatic. Eyes: Extraocular muscles are intact. Pupils are equal, round and reactive to light and accommodation. Ears: No lesions. Nose appeared normal. Throat: No exudate or erythema. NECK: Supple. No JVP, no carotid bruit. No lymphadenopathy or thyromegaly. LUNGS: Decreased breath sounds with mild wheeze. Percussion note normal. Chest symmetrical. HEART: S1, S2, no S3. No murmurs. No cyanosis or clubbing. No ascites. Pulses: Dorsalis pedis and posterior tibial pulses +1 to +2 both sides. ABDOMEN: Soft. Nontender. Bowel sounds active. No CVA tenderness. No mass felt. EXTREMITIES: No edema. Full range of motion of all extremities, equal. NEUROLOGIC: No focal deficit. Cranial nerves II through XII are grossly intact. No headache, no double vision or headache. SKIN: Not dry. Intact. Turgor - normal. LYMPHATIC: No palpable lymph nodes/no lymphedema. MUSCULOSKELETAL: Normal joints with no swelling. Muscle tone is normal. ASSESSMENT: 1. FLU SYNDROME WITH ACUTE BRONCHITIS AND DEHYDRATION 2. HYPERTENSION 3. OBESITY 4. STATUS POST BACK SURGERY 5 WEEKS AGO PLAN: 1. Give IV fluids 2. Antibiotics 3. Steroids 4. Nebs treatment 5. Diet 6. Blood cultures 7. Daily CBC, CMP 8. Telemetry 9. EKG CONDITION: Stable TIME SPENT: More than 30 minutes. Plan and coordination of the patient's care discussed in the presence of nurse. NEO
[2017-11-03] MEDS: COZAAR PO SCH (11:00)
[2017-11-03] MEDS: ASPIRIN EC PO SCH (11:00)
[2017-11-03] MEDS: K-DUR PO SCH (11:01)
[2017-11-03] MEDS: ZITHROMAX PO SCH (11:01)
[2017-11-03] MEDS: LASIX TAB PO SCH (11:02)
[2017-11-03] MEDS: PERCOCET 10-325 PO PRN (11:02)
[2017-11-03] MEDS: XANAX PO PRN (11:02)
--- NOTE | 2017-11-03 11:57 | US ---
EXAM: ULTRASOUND CAROTID DUPLEX, BILATERAL HISTORY: Syncope FINDINGS: Whitley-scale ultrasound, color Doppler and spectral analysis was performed. Velocities are in meters per second. By whitley scale and color Doppler imaging, there were regions of heterogeneous plaque formation identif ied within the carotid bulbs and internal carotid arteries. These regions of plaque appeared to bridgett in less than 50% vessel diameter. RIGHT: External carotid artery peak systolic velocity: 1.9/0.2 Common carotid artery peak systolic velocity/end diastolic velocity: 1.0/0.3 Internal carotid artery peak systolic velocity: 1.3 ICA/CCA peak systolic velocity ratio: 1.4 ICA end diastolic velocity: 0.3 LEFT: External carotid artery peak systolic velocity: 0.8/0.1 Common carotid artery peak systolic velocity/end diastolic velocity: 0.7/0.3 Internal carotid artery peak systolic velocity: 0.9 ICA/CCA peak systolic velocity ratio: 1.2 ICA end diastolic velocity: 0.2 The right and left vertebral arteries were antegrade. IMPRESSION: 1. By whitley scale and color Doppler imaging, there were regions of heterogeneous plaque formation jaeny ntified within the carotid bulbs and internal carotid arteries. These regions of plaque appeared to remain less than 50% vessel diameter. 2. The right internal carotid artery peak systolic velocity of 1.3 meters per second minimally falls within the moderate range of stenosis. Moderate indicates 50 - 69% vessel diameter. The right-side d ICA/CCA peak systolic velocity ratio 1.4 is more consistent with mild stenosis. Mild indicates les s than 50% vessel diameter. Correlation with CTA can be made if indicated clinically. 3. No sonographic evidence of hemodynamically significant stenosis of the left carotid system. 4. Both vertebral arteries were antegrade.
[2017-11-03] MEDS: DEXTROSE 5%-1/2NS IV SOLUTION 1,000 ML IV SCH (12:27)
[2017-11-03] MEDS: NIASPAN PO SCH (20:21)
[2017-11-03] MEDS: ZIAC 5-6.25 MG PO SCH (20:21)
[2017-11-03] MEDS: DESYREL PO SCH (20:21)
[2017-11-03] MEDS: MAG-OX PO SCH (20:21)
[2017-11-03] MEDS: XANAX PO SCH (20:22)
[2017-11-03] MEDS: DOXEPIN HCL 10 MG PO SCH (20:22)
[2017-11-03] MEDS ORDERED: NON-FORMULARY MEDICATION (Trazodone Hcl [Trazodone Hcl] 200 MG) PO SCH (21:00)
[2017-11-03] MEDS ORDERED: NIACIN 1000 MG PO SCH (21:00)
[2017-11-04] MEDS: PHENERGAN WITH CODEINE 6.25/10 MG/5 ML PO SCH ×4 (04:05→20:57)
[2017-11-04] MEDS: DUONEB NEB SCH ×5 (05:15→22:00)
[2017-11-04] MEDS: SOLU-CORTEF 250 MG IVP SCH (05:37)
[2017-11-04] MEDS: LASIX TAB PO SCH (05:38)
[2017-11-04] MEDS: COZAAR PO SCH (08:41)
[2017-11-04] MEDS: ASPIRIN EC PO SCH (08:41)
[2017-11-04] MEDS: K-DUR PO SCH (08:42)
[2017-11-04] MEDS: MULTIVITAMIN TABLET PO SCH (08:43)
[2017-11-04] MEDS: VILAZODONE HCL 40 MG PO SCH (08:45)
[2017-11-04] MEDS: ZITHROMAX PO SCH (08:45)
[2017-11-04] MEDS: PREDNISONE PO SCH (08:45)
[2017-11-04] MEDS ORDERED: NON-FORMULARY MEDICATION (Multivit-Min/Fa/Lycopene/Lut [Centrum Silver Tablet] 1 TAB) PO SCH (09:00)
[2017-11-04] MEDS ORDERED: NON-FORMULARY MEDICATION SL SCH (09:00)
--- NOTE | 2017-11-04 10:44 | PCM.PROG ---
Attending Provider: ATTENDING PROVIDER: Dr. THEODORE VICTORIA DATE OF SERVICE: 11/04/17 SUBJECTIVE: This 62 year old WHITE/ F was hospitalized 11/02/17 with syncope and acute bronchitis. Condition improving; she is feeling better. She still has mild hemoptysis. She is afebrile. REVIEW OF SYSTEMS: CONSTITUTIONAL: Mild weakness. No night sweats. No malaise, lethargy. No fever or chills. HEENT: Eyes: No visual changes. No eye pain. No eye discharge. ENT: No runny nose. No epistaxis. No sinus pain. No odynophagia. No congestion. RESPIRATORY: Mild cough with congestion. Mild hemoptysis. No shortness of breath. CARDIOVASCULAR: No angina symptoms. No CHF symptoms. No atypical chest pain for CAD. No palpitations. No orthopnea.. GASTROINTESTINAL: Appetite improved. Hydration status improved. No abdominal pain. No nausea or vomiting. No diarrhea or constipation. No hematemesis. No hematochezia. GENITOURINARY: No urgency. No frequency. No dysuria. No hematuria. No obstructive symptoms. No discharge. No pain. No significant abnormal bleeding. MUSCULOSKELETAL: No musculoskeletal pain; no joint swelling. NEUROLOGICAL: Awake, alert, oriented to time, place and person. No headache. No neck pain. No syncope. No seizures. No dizziness. PSYCHIATRIC: Not anxious. No depression. No suicidal thoughts. No homicidal thoughts. SKIN: No rash. No lesions. No wounds. ENDOCRINE: No unexplained weight loss. No weight gain. HEMATOLOGIC/LYMPHATIC: No anemia. No purpura. No petechiae. No prolonged or excessive bleeding. No palpable lymph nodes. PHYSICAL EXAMINATION: GENERAL: The patient is awake, alert and oriented, lying in bed in no distress. VITAL SIGNS: Temperature 98.0 F, Pulse 84, Respiratory Rate 20, BP 116/69, Pulse Ox 100% HEENT: Head normocephalic, atraumatic. Eyes: Extraocular muscles are intact. Pupils are equal, round and reactive to light and accommodation. Ears: No lesions. Nose appeared normal. Throat: No exudate or erythema. NECK: Supple. No JVD, no carotid bruit. No lymphadenopathy or thyromegaly. LUNGS: Decreased breath sounds with good air entry. Clear to auscultation. Percussion note normal. Chest symmetrical. HEART: S1, S2, no S3. No murmurs. No cyanosis or clubbing. No ascites. Pulses: Dorsalis pedis and posterior tibial pulses +1 to +2 both sides. ABDOMEN: Soft. Non-tender. Bowel sounds active. No CVA tenderness. No mass felt. EXTREMITIES: No edema. Full range of motion of all extremities, equal. NEUROLOGIC: No focal deficit. Cranial nerves II through XII are grossly intact. No headache, no double vision or headache. SKIN: Warm and dry. Intact. Turgor-better. LYMPHATIC: No palpable lymph nodes/no lymphedema. MUSCULOSKELETAL: Normal joints with no swelling. Muscle tone is normal. LAB REVIEW: 11/04/17 05:00 11/04/17 05:00 11/04/17 05:00: Sodium 140, Potassium 4.1, Chloride 108 H, Carbon Dioxide 24, Anion Gap 12.1, BUN 16, Creatinine 0.86, Estimated GFR (MDRD) 67.00, BUN/ Creatinine Ratio 18.60, Glucose 137 H, Calcium 8.4, Total Bilirubin 0.4, AST 15 , ALT 19, Alkaline Phosphatase 54, Total Protein 6.6, Albumin 3.0 L, Globulin 3.6, Albumin/Globulin Ratio 0.83 11/04/17 05:00: WBC 12.06 H, RBC 3.81 L, Hgb 11.9 L, Hct 34.3 L, MCV 90.0, MCH 31.2 H, MCHC 34.7, RDW Coeff of Mayra 14.0, Plt Count 274, Immature Gran % (Auto) 0.8, Neut % (Auto) 70.0, Lymph % (Auto) 22.6, [place] % (Auto) 6.5, Eos % (Auto) 0.0, Baso % (Auto) 0.1, Immature Gran # (Auto) 0.1, Neut # 8.4 H, Lymph # 2.7, [place] # 0.8, Eos # 0.0, Baso # 0.0 11/03/17 08:05: Total Creatine Kinase 36, Troponin I < 0.0100 ASSESSMENT: 1. ACUTE BRONCHITIS/PNEUMONITIS RESOLVING 2. SYNCOPE RESOLVED, LIKELY VASOVAGAL AND HYPOTENSION 3. CAROTID STENOSIS 70% 4. HYPERTENSION 5. OBESITY 6. DYSLIPIDEMIA. THE PATIENT IS UNABLE TO TAKE STATINS OR NIACIN; REFUSES REPATHA INJECTABLE MEDICATION FOR CHOLESTEROL. PLAN: 1. Prednisone 20 mg daily 2. Duonebs q.4hr 3. Phenergan with Codeine one to two teaspoons four times a day 4. Continue antibiotics Plan and coordination of the patient's care discussed in the presence of Bootmaker Hand and nurse. CONDITION: Stable SCRIBED BY: AVA MCGHEE [facility] Nurse scribed while in presence of service performed by Dr. THEODORE VICTORIA on 11/04/17 ([id number])
--- NOTE | 2017-11-04 11:32 | HP ---
DATE OF SERVICE: 11/02/17 HISTORY OF PRESENT ILLNESS: This is a 62-year-old white female who initially presented to our office, had a syncopal episode, fell in the floor. 911 was called and she was taken to the hospital by EMT. She had been having cough and congestion for the past couple of weeks and had been treated with antibiotics and steroids. She has a history of syncopal episodes and anxiety. PAST MEDICAL HISTORY: Recent back surgery Dyslipidemia Coronary artery disease Myocardial infarction Hypertension Obesity History of diverticulitis History of TIA Depression Arthritis PAST SURGICAL HISTORY: Hysterectomy Cervical fusion REVIEW OF SYSTEMS: CONSTITUTIONAL: Fatigue. No night sweats. No malaise, lethargy. No fever or chills. HEENT: Eyes: No visual changes. No eye pain. No eye discharge. ENT: No runny nose. No epistaxis. No sinus pain. No sore throat. No odynophagia. No ear pain. No congestion. RESPIRATORY: Cough and congestion. No hemoptysis. Shortness of breath. CARDIOVASCULAR: No angina symptoms. No CHF symptoms. No atypical chest pain for CAD. No palpitations. No orthopnea. GASTROINTESTINAL: No abdominal pain. No nausea or vomiting. No diarrhea or constipation. No hematemesis. No hematochezia. GENITOURINARY: No urgency. No frequency. No dysuria. No hematuria. No obstructive symptoms. No discharge. No pain. No significant abnormal bleeding. MUSCULOSKELETAL: No musculoskeletal pain. No joint swelling. No arthritis. NEUROLOGICAL: No headache. No neck pain. No syncope. No seizures. No dizziness. PSYCHIATRIC: Anxiety. No depression. No suicidal thoughts. No homicidal thoughts. SKIN: No rash. No lesions. No wounds. ENDOCRINE: No unexplained weight loss. No weight gain. HEMATOLOGIC/LYMPHATIC: No anemia. No purpura. No petechiae. No prolonged or excessive bleeding. No palpable lymph nodes. PERSONAL/FAMILY/SOCIAL HISTORY: The patient is a nonsmoker. She currently resides at home with her . No alcohol or ilicit drug use. MEDICATIONS: Xanax 0.5 mg p.r.n. Ziac 5/6.25 daily Doxepin 10 mg at bedtime Lasix 40 mg daily Losartan 150 mg daily Niacin 1000 mg at bedtime Potassium 30 mEq daily Trazodone 200 mg at bedtime Viibryd 60 mg daily Percocet 10 mg p.r.n. from recent back surgery ALLERGIES: CLONIDINE, PLAVIX, LATEX, PENICILLIN, STATINS, ANTIPSYCHOTICS PHYSICAL EXAMINATION: HEENT: Head normocephalic, atraumatic. Eyes: Extraocular muscles are intact. Pupils are equal, round and reactive to light and accommodation. Ears: No lesions. Nose appeared normal. Throat: No exudate or erythema. NECK: Supple. No JVD, no carotid bruit. No lymphadenopathy or thyromegaly. LUNGS: Clear to auscultation. Percussion note normal. Chest symmetrical. HEART: S1, S2, no S3. No murmurs. No cyanosis or clubbing. No ascites. Pulses: Dorsalis pedis and posterior tibial pulses +1 to +2 both sides. ABDOMEN: Soft. Nontender. Bowel sounds active. No CVA tenderness. No mass felt. EXTREMITIES: No edema. Full range of motion of all extremities, equal. NEUROLOGIC: No focal deficit. Cranial nerves II through XII are grossly intact. No headache, no double vision or headache. SKIN: Not dry. Intact. Turgor - normal. LYMPHATIC: No palpable lymph nodes/no lymphedema. MUSCULOSKELETAL: Normal joints with no swelling. Muscle tone is normal. LABS: Urine is normal, negative for leukocytes, negative for blood. CT of the head shows no acute cranial, intracranial abnormality. CT of the chest reveals no acute process. CT of the c-spine shows evidence of operative changes. No acute fractures. Sodium 142, potassium 3.5, BUN 17, creatinine 0.86, total bili 0.7, AST 21, ALT 21, total protein 7.5, albumin 3.3, alkaline phosphatase 63, white count 10.21, hemoglobin 13.9, hematocrit 40.5, platelets 309. Rapid flu A & B were both negative. Strep was negative ASSESSMENT: 1. SYNCOPAL EPISODE 2. ACUTE BRONCHITIS 3. SHORTNESS OF BREATH 4. ANXIETY PLAN: 1. We will admit with routine telemetry orders 2. CBC, CMP daily 3. IV fluids, D5 1/2 NS at 83 cc/hr 4. Levaquin 500 mg p.o. IV daily 5. Solu-Cortef 125 mg IV q.8hr 6. Xopenex neb treatments 7. Continue all home medications 8. Sputum for culture and sensitivity 9. Will follow closely TIME SPENT: More than 70 minutes. [facility]
[2017-11-04] MEDS: XANAX PO PRN (13:56)
[2017-11-04] MEDS: DOXEPIN HCL 10 MG PO SCH (20:57)
[2017-11-04] MEDS: MAG-OX PO SCH (20:58)
[2017-11-04] MEDS: PERCOCET 10-325 PO PRN (20:58)
[2017-11-04] MEDS: ZIAC 5-6.25 MG PO SCH (20:58)
[2017-11-04] MEDS: XANAX PO SCH (20:58)
[2017-11-04] MEDS: NIASPAN PO SCH (20:59)
[2017-11-04] MEDS: DESYREL PO SCH (20:59)
[2017-11-05] MEDS: DUONEB NEB SCH ×3 (00:20→10:07)
[2017-11-05] MEDS: PHENERGAN WITH CODEINE 6.25/10 MG/5 ML PO SCH ×2 (02:26→08:21)
[2017-11-05] MEDS: LASIX TAB PO SCH (05:32)
[2017-11-05] MEDS: ASPIRIN EC PO SCH (08:23)
[2017-11-05] MEDS: COZAAR PO SCH (08:23)
[2017-11-05] MEDS: MULTIVITAMIN TABLET PO SCH (08:25)
[2017-11-05] MEDS: K-DUR PO SCH (08:25)
[2017-11-05] MEDS: PREDNISONE PO SCH (08:26)
[2017-11-05] MEDS: ZITHROMAX PO SCH (08:27)
[2017-11-05] MEDS: VILAZODONE HCL 40 MG PO SCH (08:27)
[2017-11-05] MEDS ORDERED: NON-FORMULARY MEDICATION SL SCH (09:00)
--- NOTE | 2017-11-05 09:22 | PCM.PROG ---
Attending Provider: ATTENDING PROVIDER: Dr. THEODORE VICTORIA This patient is seen with Hanane Newton, Nurse Practitioner. DATE OF SERVICE: 11/05/17 SUBJECTIVE: This 62 year old WHITE/ F was hospitalized 11/02/17. The patient is sitting in bed, alert. Coughing is somewhat improved. She is wanting to go home today. Will start neb treatments at home. REVIEW OF SYSTEMS: CONSTITUTIONAL: Positive for fatigue. No night sweats. No malaise, lethargy. No fever or chills. HEENT: Eyes: No visual changes. No eye pain. No eye discharge. ENT: No runny nose. No epistaxis. No sinus pain. No odynophagia. No congestion. RESPIRATORY: Cough. No congestion. No hemoptysis. No shortness of breath. CARDIOVASCULAR: No angina symptoms. No CHF symptoms. No atypical chest pain for CAD. No palpitations. No orthopnea.. GASTROINTESTINAL: No abdominal pain. No nausea or vomiting. No diarrhea or constipation. No hematemesis. No hematochezia. GENITOURINARY: No urgency. No frequency. No dysuria. No hematuria. No obstructive symptoms. No discharge. No pain. No significant abnormal bleeding. MUSCULOSKELETAL: No musculoskeletal pain; no joint swelling. NEUROLOGICAL: Awake, alert, oriented to time, place and person. No headache. No neck pain. No syncope. No seizures. No dizziness. PSYCHIATRIC: Not anxious. No depression. No suicidal thoughts. No homicidal thoughts. SKIN: No rash. No lesions. No wounds. ENDOCRINE: No unexplained weight loss. No weight gain. HEMATOLOGIC/LYMPHATIC: No anemia. No purpura. No petechiae. No prolonged or excessive bleeding. No palpable lymph nodes. PHYSICAL EXAMINATION: GENERAL: The patient is awake, alert and oriented, sitting in bed in no distress. VITAL SIGNS: Temperature 98.1 F, Pulse 103, Respiratory Rate 12, BP 106/69, Pulse Ox 97% HEENT: Head normocephalic, atraumatic. Eyes: Extraocular muscles are intact. Pupils are equal, round and reactive to light and accommodation. Ears: No lesions. Nose appeared normal. Throat: No exudate or erythema. NECK: Supple. No JVD, no carotid bruit. No lymphadenopathy or thyromegaly. LUNGS: Diminished breath sounds bilaterally. Clear to auscultation. Percussion note normal. Chest symmetrical. HEART: S1, S2, no S3. No murmurs. No cyanosis or clubbing. No ascites. Pulses: Dorsalis pedis and posterior tibial pulses +1 to +2 both sides. ABDOMEN: Soft. Non-tender. Bowel sounds active. No CVA tenderness. No mass felt. EXTREMITIES: No edema. Full range of motion of all extremities, equal. NEUROLOGIC: No focal deficit. Cranial nerves II through XII are grossly intact. No headache, no double vision or headache. SKIN: Not dry. Intact. Turgor-normal. LYMPHATIC: No palpable lymph nodes/no lymphedema. MUSCULOSKELETAL: Normal joints with no swelling. Muscle tone is normal. LAB REVIEW: 11/05/17 04:30 11/05/17 04:30 11/05/17 04:30: Sodium 141, Potassium 3.7, Chloride 107, Carbon Dioxide 25, Anion Gap 12.7, BUN 15, Creatinine 0.87, Estimated GFR (MDRD) 66.00, BUN/ Creatinine Ratio 17.24, Glucose 92, Calcium 8.7, Total Bilirubin 0.5, AST 17, ALT 19, Alkaline Phosphatase 52 L, Total Protein 6.2, Albumin 2.9 L, Globulin 3.3, Albumin/Globulin Ratio 0.88 11/05/17 04:30: WBC 13.22 H, RBC 3.88 L, Hgb 11.9 L, Hct 35.4 L, MCV 91.2, MCH 30.7, MCHC 33.6, RDW Coeff of Mayra 14.5, Plt Count 269, Immature Gran % (Auto) 0.7, Neut % (Auto) 51.6, Lymph % (Auto) 41.7, [place] % (Auto) 5.6, Eos % (Auto) 0.2, Baso % (Auto) 0.2, Immature Gran # (Auto) 0.1, Neut # 6.8, Lymph # 5.5 H, [place] # 0.7, Eos # 0.0, Baso # 0.0 ASSESSMENT: 1. ACUTE BRONCHITIS/PNEUMONITIS RESOLVING 2. SYNCOPE RESOLVED, LIKELY VASOVAGAL AND HYPOTENSION 3. CAROTID STENOSIS 70% 4. HYPERTENSION 5. OBESITY 6. DYSLIPIDEMIA. THE PATIENT IS UNABLE TO TAKE STATINS OR NIACIN; REFUSES REPATHA INJECTABLE MEDICATION FOR CHOLESTEROL. PLAN: 1. D/C home 2. Breathing treatments 3. Encouraged to drink lots of liquids 4. Tapering dose of Prednisone 20 mg daily for 5 days then 10 mg daily for 5 days 5. Phenergan with Codeine 1 to 2 tsp q.6 p.r.n. 6. Will see in Dr. Victoria's office next week for followup. 7. The patient will benefit from a nebulizer machine at home as the patient has underlying COPD and has difficulty with coordination using inhaler. She will need nebulizer machine and medication Plan and coordination of the patient's care discussed in the presence of Donor Services Team Leader and nurse. CONDITION: Stable SCRIBED BY: AVA MCGHEE Registered Nurse Float Pool scribed while in presence of service performed by Dr. Victoria/Hanane Newton APRN on 11/05/17 ([id number])
[2017-11-05 10:07] VITALS: BP 113/71; TEMP 98.8
--- NOTE | 2017-11-05 10:30 | CM.DICTOOL ---
ADMISSION: 11/02/17 18:19 DISCHARGE: 2017 DATE OF SERVICE: 11/05/17 FINAL DIAGNOSIS ACUTE BRONCHITIS/PNEUMONITIS SYNCOPE, RESOLVED DEHYDRATION CAROTID STENOSIS, 70% RIGHT ICA HYPERTENSION DYSLIPIDEMIA (UNABLE TO TAKE STATINS) TIA CAD HEPATIC STEATOSIS HISTORY OF DIVERTICULITIS OBESITY HEART CATH LUMBAR SURGERY CERVICAL SPINE SURGERY CHOLECYSTECTOMY HYSTERECTOMY LAST VITALS Temp Pulse Resp BP Pulse Ox 98.1 F 103 H 12 106/69 97 11/05/17 06:00 11/05/17 06:00 11/05/17 06:00 11/05/17 06:00 11/05/17 06:00 ACTIVE HOME MEDICATIONS Alprazolam (Xanax) 2 mg PO BEDTIME [facility] Last Admin: 11/04/17 20:58 Dose: 2 mg Alprazolam (Xanax) 0.5 mg PO DAILY PRN PRN Reason: ANXIETY Last Admin: 11/04/17 13:56 Dose: 0.5 mg Bisoprolol Fumarate/HCTZ (Ziac 5-6.25 Mg) 1 tab PO BEDTIME [facility] Last Admin: 11/04/17 20:58 Dose: 1 tab Furosemide (Lasix Tab) 40 mg PO QDAC [facility] Last Admin: 11/05/17 05:32 Dose: 40 mg Losartan Potassium (Cozaar) 150 mg PO DAILY [facility] Last Admin: 11/05/17 08:23 Dose: 150 mg Magnesium Oxide (Mag-Ox) 400 mg PO BEDTIME [facility] Last Admin: 11/04/17 20:58 Dose: 400 mg Multivitamins (Multivitamin Tablet) 1 tab PO DAILY [facility] Last Admin: 11/05/17 08:25 Dose: 1 tab Niacin (Niaspan) 1,000 mg PO BEDTIME [facility] Last Admin: 11/04/17 20:59 Dose: 1,000 mg Non-Formulary Medication (Doxepin Hcl [Doxepin Hcl]) 10 mg PO BEDTIME [facility] Last Admin: 11/04/17 20:57 Dose: 10 mg Non-Formulary Medication (Vilazodone Hcl [Viibryd]) 40 mg PO QAM [facility] Last Admin: 11/05/17 08:27 Dose: 40 mg Non-Formulary Medication (VITAMIN B12 5000 MCG) 1 each SL DAILY [facility] Last Admin: 11/05/17 08:26 Dose: 1 each Oxycodone/Acetaminophen (Percocet 10-325) 1 tab PO BID PRN PRN Reason: Analgesia Last Admin: 11/04/17 20:58 Dose: 1 tab Potassium Chloride (K-Dur) 20 meq PO DAILY [facility] Last Admin: 11/05/17 08:25 Dose: 20 meq Trazodone HCl (Desyrel) 200 mg PO BEDTIME [facility] Last Admin: 11/04/17 20:59 Dose: 200 mg ALLERGIES clonidine Adverse Reaction (Verified 08/24/17 12:45) clopidogrel bisulfate [From Plavix] Adverse Reaction (Verified 08/24/17 12:45) Latex, Natural Rubber Adverse Reaction (Verified 08/24/17 12:45) Penicillins Adverse Reaction (Verified 08/24/17 12:45) senna Adverse Reaction (Verified 08/24/17 12:45) Cphpssc-Iiq-Vos Reductase Inhibitor Adverse Reaction (Verified 08/24/17 12:45) antipsychotics Adverse Reaction (Uncoded 08/24/17 12:45) NEW PRESCRIPTIONS: DUONEB SOLUTION 1 TREATMENT QID PREDNISONE 10 MG TAKE 2 TABLETS DAILY FOR 5 DAYS, THEN 1 TABLET DAILY FOR 5 DAYS. TAKE WITH FOOD PHENERGAN WITH CODEINE 1-2 TSP. PO Q 6 HOURS PRN COUGH MAY CAUSE DROWINESS OR DIZZINESS SMOKING: NOT APPLICABLE DISEASE SPECIFIC EDUCATION: BRONCHITIS USE OF NEBULIZER CAROTID STENOSIS DYSLIPIDEMIA WEIGHT LOSS, DIET USE OF STEROIDS, RISK OF GI IRRITATION LAB REVIEW: 11/05/17 04:30 11/05/17 04:30 11/05/17 04:30: Sodium 141, Potassium 3.7, Chloride 107, Carbon Dioxide 25, Anion Gap 12.7, BUN 15, Creatinine 0.87, Estimated GFR (MDRD) 66.00, BUN/ Creatinine Ratio 17.24, Glucose 92, Calcium 8.7, Total Bilirubin 0.5, AST 17, ALT 19, Alkaline Phosphatase 52 L, Total Protein 6.2, Albumin 2.9 L, Globulin 3.3, Albumin/Globulin Ratio 0.88 11/05/17 04:30: WBC 13.22 H, RBC 3.88 L, Hgb 11.9 L, Hct 35.4 L, MCV 91.2, MCH 30.7, MCHC 33.6, RDW Coeff of Mayra 14.5, Plt Count 269, Immature Gran % (Auto) 0.7, Neut % (Auto) 51.6, Lymph % (Auto) 41.7, [place] % (Auto) 5.6, Eos % (Auto) 0.2, Baso % (Auto) 0.2, Immature Gran # (Auto) 0.1, Neut # 6.8, Lymph # 5.5 H, [place] # 0.7, Eos # 0.0, Baso # 0.0 PLAN: DISCHARGE HOME DIET: REGULAR ACTIVITY: GRADUALLY RESUME TOLERATED AVOID CROWDS, STAY INDOORS UNTIL SEEN IN OFFICE USE DUONEB IN NEBULIZER AT LEAST 4 TIMES DAILY AN APPOINTMENT IS SCHEDULED WITH DR. VICTORIA/CHARMAINE LOZANO APRN ON AT 11 AM MRS. TORO IS ALERT AND ORIENTED X 3. SHE IS INDEPENDENT WITH ADL'S. SHE IS AMBULATORY WITHOUT USE OF ASSISTIVE DEVICE, BUT DOES WEAR A LUMBAR BRACE DUE TO RECENT BACK SURGERY. SHE DENIES ABDOMINAL PAIN, NAUSEA OR DIARRHEA. MEAL INTAKES ARE GOOD AT 100% WITH GOOD LIQUID INTAKE. SHE IS CONTINENT OF URINE AND BOWEL. SHE IS VOIDING WITHOUT DIFFICULTY. SKIN IS INTACT AND WITHOUT IRRITATION. NO RESPIRATORY DISTRESS NOTED. SHE CONTINUES TO EXHIBIT A HACKING TYPE COUGH THAT IS OCCASIONALLY PRODUCTIVE OF SMALL AMOUNTS OF CREAMY YELLOW- WHITE MUCUS. A NEBULIZER HAS BEEN OBTAINED THROUGH [facility] FOR HER USE AT HOME. THEODORE VICTORIA MD CHARMAINE LOZANO APRN
--- NOTE | 2017-11-05 13:23 | PN ---
DATE OF SERVICE: 11/03/17 SUBJECTIVE: 62-year-old white female hospitalized with syncope. The patient is doing a lot better. She is coughing. She has flu type of symptoms with Influenza A and B negative. She says her coughing is much less with Tussionex, nebs treatment. REVIEW OF SYSTEMS: CONSTITUTIONAL: Fatigue. No night sweats. No malaise, lethargy. No fever or chills. HEENT: Eyes: No visual changes. No eye pain. No eye discharge. ENT: No runny nose. No epistaxis. No sinus pain. No sore throat. No odynophagia. No congestion. RESPIRATORY: Cough. No congestion. No hemoptysis. No shortness of breath. CARDIOVASCULAR: No angina symptoms. No CHF symptoms. No atypical chest pain for CAD. No palpitations. No orthopnea. GASTROINTESTINAL: No abdominal pain. No nausea or vomiting. No diarrhea or constipation. No hematemesis. No hematochezia. GENITOURINARY: No urgency. No frequency. No dysuria. No hematuria. No obstructive symptoms. No discharge. No pain. No significant abnormal bleeding. MUSCULOSKELETAL: No musculoskeletal pain; no joint swelling. NEUROLOGICAL: No headache. No neck pain. No syncope. No seizures. No dizziness. PSYCHIATRIC: Not anxious. No depression. No suicidal thoughts. No homicidal thoughts. SKIN: No rash. No lesions. No wounds. ENDOCRINE: No unexplained weight loss. No weight gain. HEMATOLOGIC/LYMPHATIC: No anemia. No purpura. No petechiae. No prolonged or excessive bleeding. No palpable lymph nodes. PHYSICAL EXAMINATION: GENERAL: The patient is oriented to time, place and person. V/S: Temperature normal. Pulse 90/min. Respiratory rate 15. BP 117/68, pulse ox 98%. HEENT: Head normocephalic, atraumatic. Eyes: Extraocular muscles are intact. Pupils are equal, round and reactive to light and accommodation. Ears: No lesions. Nose appeared normal. Throat: No exudate or erythema. NECK: Supple. No JVD, no carotid bruit. No lymphadenopathy or thyromegaly. LUNGS: Decreased breath sounds. Clear to auscultation. Percussion note normal. Chest symmetrical. HEART: S1, S2, no S3. No murmurs. No cyanosis or clubbing. No ascites. Pulses: Dorsalis pedis and posterior tibial pulses +1 to +2 both sides. ABDOMEN: Soft. Nontender. Bowel sounds active. No CVA tenderness. No mass felt. EXTREMITIES: No edema. Full range of motion of all extremities, equal. NEUROLOGIC: No focal deficit. Cranial nerves II through XII are grossly intact. No headache, no double vision or headache. SKIN: Not dry. Intact. Turgor - normal. LYMPHATIC: No palpable lymph nodes/no lymphedema. MUSCULOSKELETAL: Normal joints with no swelling. Muscle tone is normal. LABS: Hemoglobin 13.4, hematocrit 38, WBC 8,800, normal differential. Creatinine, BUN 18, glucose 231. ASSESSMENT: 1. ACUTE BRONCHITIS AND PNEUMONITIS LIKELY FLU SYNDROME 2. SYNCOPE LIKELY FROM COUGHING AND VASOVAGAL COMBINATION 3. HYPERTENSION 4. OBESITY 5. STATUS POST BACK SURGERY PLAN: 1. Continue nebs treatment, steroids, antibiotics. 2. D/C IV fluids. 3. Will do carotid scan. CONDITION: Stable. TIME SPENT: More than 30 minutes. Plan and coordination of the patient's care discussed in the presence of nurse. NEO
--- NOTE | 2017-11-09 13:47 | PN ---
CODING FOR BILLING 11/02/17 LEVEL 5 11/03/17 INTERMEDIATE 11/04/17 DISCHARGE MTDD
--- NOTE | 2017-12-03 11:30 | DS ---
DATE OF SERVICE: 11/05/17 FINAL DIAGNOSIS: 1. ACUTE BRONCHITIS/PNEUMONITIS 2. SYNCOPE, RESOLVED 3. DEHYDRATION 4. CAROTID STENOSIS, 70% RIGHT ICA 5. HYPERTENSION 6. DYSLIPIDEMIA (UNABLE TO TAKE STATINS) 7. TIA 8. CAD 9. HEPATIC STEATOSIS 10. HISTORY OF DIVERTICULITS 11. OBESITY 12. HEART CATH 13. LUMBAR SURGERY 14. CERVICAL SPINE SURGERY 15. CHOLECYSTECTOMY 16. HYSTERECTOMY DISCHARGE INSTRUCTIONS: Followup appointment is scheduled with Dr. Zimmer/Hanane Newton APRN on @ 11 a.m. MEDICATIONS AT DISCHARGE: Xanax 2 mg p.o. bedtime [facility]OY Xanax 0.5 mg p.o. daily p.r.n. Bisoprolol/HCTZ (Ziac 5-6.25 mg) one tab p.o. bedtime [facility] Furosemide 40 mg p.o. q.d a.c. TROY Cozaar 150 mg p.o. daily [facility] Mag-Ox 400 mg p.o. bedtime TROY Multivitamin one tab p.o. daily [facility] Niaspan 1,000 mg p.o. bedtime [facility] Doxepin HCl 10 mg p.o. bedtime [facility] Viibryd 40 mg p.o. q.a.m. TROY Vitamin B12 5000 mcg one each SL daily [facility] Percocet 10-325 one tab p.o. b.i.d. p.r.n. K-Dur 20 mEq p.o. daily [facility] Desyrel 200 mg p.o. bedtime [facility] NEW PRESCRIPTIONS: Duoneb one treatment q.i.d. Prednisone 10 mg take two tablets daily for 5 days, then one tablet daily for 5 days, take with food Phenergan with Codeine 1-2 tsp p.o. q.6hr p.r.n. cough, may cause drowsiness or dizziness DIET INSTRUCTIONS: Regular ACTIVITY: Gradually resume as tolerated; avoid crowds, stay indoors until seen in office SMOKING: N/A DISEASE SPECIFIC EDUCATION: Bronchitis Use of nebulizer Carotid stenosis Dyslipidemia Weight loss, diet Use of steroids, risk of GI irritation HOSPITAL COURSE: This 62-year-old female who presented to our office with cough and congestion. She had a questionable syncopal episode. She did not actually totally lose consciousness. I believe she had a moment of weakness due to vasovagal response from extreme coughing. She had been treated as an outpatient for the past week and one-half without oral antibiotics and steroids. She presented with worsening cough. She stated she had had a low grade fever the past couple days and was short of breath. She was then taken to the emergency room and admitted for acute bronchitis, questionable syncopal episode, placed on telemetry which has been normal. Chest x-ray showed changes associated with bronchitis, bronchiolitis. No pneumonia. Her ABGs were normal. Her 02 sats were normal 98 on admission. She was admitted, placed on Solu-Medrol 125 mg IV q.8hr along with Zithromax 500 mg p.o. daily times three days. She was started on Xopenex neb treatments 1.25 mg q.6hr scheduled. Over the course of the past two days, she has been eating well. She has had normal sinus rhythm on telemetry. Her cough has improved. She has had no episodes of weakness or near syncope. She states she feels that the nebulizer treatments helped. We had previously given her as an outpatient a Proair inhaler but she states that she does not feel like she can use it so we will set her up to get a nebulizer machine for home and she will do Duoneb treatments q.4 to 6 hr at home. Today is her third and final dose of oral Zithromax to complete her course so she will go home with Phenergan with Codeine, cough syrup, nebulizer treatment with Duonebs and tapering dose of Prednisone 20 mg daily for 5 days and then 10 mg daily for 5 days. We will followup with her in the office next week. TIME SPENT: More than 60 minutes. NEO
== END 2017-11-05 11:29 | disposition home or self-care (01) | DRG 202 ==
LOC: ED 15:42 → MEDSURG A 18:19
PROVIDERS: ADMIT Internal Medicine; ATTEND Internal Medicine
DX: J20.9 Acute bronchitis, unspecified (principal); J18.9 Pneumonia, unspecified organism; R04.2 Hemoptysis; R05 Cough; R55 Syncope and collapse; I95.9 Hypotension, unspecified; R06.02 Shortness of breath; I65.21 Occlusion and stenosis of right carotid artery; E86.0 Dehydration; I10 Essential (primary) hypertension; E78.5 Hyperlipidemia, unspecified; I25.10 Atherosclerotic heart disease of native coronary artery without angina pectoris; K76.0 Fatty (change of) liver, not elsewhere classified; E66.9 Obesity, unspecified; I25.2 Old myocardial infarction; Y92.531 Health care provider office as the place of occurrence of the external cause; W19.XXXA Unspecified fall, initial encounter; Z87.19 Personal history of other diseases of the digestive system; Z98.890 Other specified postprocedural states; Z98.1 Arthrodesis status; Z90.49 Acquired absence of other specified parts of digestive tract; Z86.73 Personal history of transient ischemic attack (TIA), and cerebral infarction without residual deficits; Z86.718 Personal history of other venous thrombosis and embolism; Z79.899 Other long term (current) drug therapy
CPT/HCPCS: 36415; 80053; 81001; 82550; 84484; 85007; 85025; 87040; 87502; 87651; 93005; 93010; 94640; 96374; 97802; 99223; 99232; 99239; 99284

== ENCOUNTER 2018-01-28 13:16 | Outpatient (CLI) ==
--- NOTE | 2018-01-29 10:15 | MAMMO ---
EXAM: Bilateral digital screening mammogram (2-D and 3-D) History: Screening Comparison: Bilateral mammogram 01/09/2017. Findings: MLO and CC views of bilateral breasts demonstrate predominately fatty replaced breast pare nchyma. CAD was reviewed by the radiologist. Tomosynthesis was performed. Stable benign bilateral breast calcifications. There are no dominant masses, no suspicious microcalcifications and no liz ectural distortions Impression: Benign stable mammogram. Recommend followup routine screening mammography in 1 year. BIRADS 2
== END 2018-01-28 13:17 | disposition home or self-care (01) ==
LOC: RAD 13:16
PROVIDERS: ATTEND Internal Medicine
DX: Z12.31 Encounter for screening mammogram for malignant neoplasm of breast (principal)
CPT/HCPCS: 77067

== ENCOUNTER 2018-02-23 06:47 | Day surgery (SDC) | payer OTHER ==
[2018-02-23] MEDS ORDERED: LIDOCAINE 1% 20 ML MDV ID STA (07:21)
[2018-02-23] MEDS ORDERED: VERSED ONE (08:35)
[2018-02-23] MEDS ORDERED: DIPRIVAN 20 ML VIAL IVP ONE (08:35)
[2018-02-23 15:01] VITALS: BP 104/70; TEMP 96.1
--- NOTE | 2018-02-24 09:11 | OP ---
INDICATIONS FOR PROCEDURE: 62-year-old female presents for colonoscopy exam. She is scheduled for surveillance examination with a history of adenomatous polyps with the last colonoscopy greater than three years ago. She also has been having recurrent diverticular disease. MEDICATIONS: SEE ANESTHESIA NOTES. PROCEDURE: COLONOSCOPY, SNARE POLYPECTOMY. REPORT: The risks, benefits, alternatives and limitations were discussed in detail with the patient. Informed consent was obtained. After adequate sedation was achieved, a digital rectal exam revealed good tone, no masses. The colonoscope was introduced into the rectum and advanced under direct visual guidance to the cecum. While advancing the scope, there was a diminutive polyp in the mid sigmoid. I destroyed this using a hot snare. I then advanced the scope on to the cecum. The cecum was identified by the appendiceal orifice and IC valve. I then slowly withdrew the scope examining the mucosa quite carefully. I looked on the proximal, distal side of folds and flexures as best as possible. I was able to retroflex the scope in the right colon and left colon to increase visualization. There were a few small mouth diverticula scattered in the ascending around the hepatic flexure. There were a few in the transverse colon. There were multiple small and large mouth diverticula scattered in the descending area extending all the way through the sigmoid area. No other abnormalities were noted including on retroflex view of the anal canal. The prep was good. The withdrawal time is 7 minutes and 0 seconds. The patient tolerated the procedure well with stable vital signs and pulse oximetry throughout. IMPRESSION: 1. SMALL DIMINUTIVE POLYP DESTROYED. 2. PICHARDO DIVERTICULOSIS WITH GREAT MAJORITY OF DIVERTICULAR DISEASE BEING IN THE SIGMOID AREA WITH A FEW SMALL DIVERTICULA SCATTERED THROUGHOUT THE REMAINING COLON DESCRIBED ABOVE. RECOMMENDATIONS: 1. High fiber diet. 2. Surveillance colonoscopy examination again in five years, sooner if signs or symptoms would indicate otherwise. 3. Will see her back in the office as needed. 4. Continue followup appointment with Dr. Sandrita Barber as scheduled. CC: DR. JULIEN LARSON
== END 2018-02-23 10:01 | disposition home or self-care (01) ==
LOC: SURG 06:47
PROVIDERS: ATTEND Internal Medicine Gastroenterology
DX: Z09 Encounter for follow-up examination after completed treatment for conditions other than malignant neoplasm (principal); Z86.010 Personal history of colon polyps; K57.30 Diverticulosis of large intestine without perforation or abscess without bleeding; K63.5 Polyp of colon

== ENCOUNTER 2018-04-23 06:20 | Outpatient (CLI) | END 2018-04-23 06:21 | disposition home or self-care (01) | LOC: CAR 06:20 | PROVIDERS: ATTEND Internal Medicine | DX: R55 Syncope and collapse (principal); R06.02 Shortness of breath ==

== ENCOUNTER 2018-04-26 06:47 | Outpatient (CLI) ==
--- NOTE | 2018-04-26 09:59 | ECHO2D ---
Date of Exam: 04/23/18 Ordering Physician: DR. THEODORE VICTORIA Room #: OP Reason for Echo: SOB, SYNCOPE, HYPERTENSION M-Mode Normal Adult Results LV Dimensions Normal Adult Results AoV Opening excursions >1.6 >1.6 LVEDD-base- 3.5-5.8 4.6 Ao root dimensions 2.0-3.7 3.6 LVESD-base- 3.1-4.6 L. Atrium dimensions 1.9-3.8 3.8 Post. Wall thickness 0.8-1.1 1.2 IV septum (thickness) 0.7-1.2 1.2 Post. Wall excursion 0.72-1.3 NORMAL Septal motion NORMAL Systolic motion R. Ventricular cavity 1.5-2.0 NORMAL LVEF 60% 70% Paradoxical septal wall motion NORMAL 2-D : 2-D M Mode Echocardiogram was performed using apical four chamber and left parasternal long and short axis views. Mitral, tricuspid and aortic valves appear to be normal. Contractility of the left ventricle seems to be normal, so is the cavity size. Left atrial cavity size and aortic root appear to be normal. There is no pericardial effusion. There is no thrombus noted in the left ventricular or left aortic cavity. No mitral valve prolapse noted. M-MODE: MV: NORMAL AV: NORMAL TV: NORMAL PV: CHAMBER SIZE: NORMAL WALL MOTION: NORMAL PERICARDIUM: NORMAL INTERPRETATION: 1. LEFT VENTRICULAR HYPERTROPHY 2. NORMAL LEFT VENTRICULAR CONTRACTILITY 3. NORMAL VALVES MTDD
--- NOTE | 2018-04-26 11:46 | STRESSMOD ---
Date of Test: 04/26/18 Ordering Physician: DR. THEODORE VICTORIA Reason for Exam: SOB, SYNCOPE Smoking History: NONE Height: 69" Weight: 235 LBS Current Medications: VIIBRYD, TRAZODONE, NIASPAN, LASIX, DOXEPIN, ZIAC, XANAX Resting EKG: SINUS RHYTHM/ LEFT VENTRICULAR HYPERTROPHY Target Heart Rate: 136/160 S-T SEGMENT STAGE MPH/GRADE HEART RATE BPM BLOOD PRESSURE mmhg RHYTHM +/- ELEVATION DEPRESSION SYMPTOMS,COMMENTS At Rest 65 118/76 SR X NONE 1 1.7/0% 110 134/60 SR X NONE 2 1.7/5% 3 1.7/10% 4 2.5/12% 5 3.4/14% Immediately After 116 SR X SHORT OF BREATH Minutes Post Exercise 5:00 70 124/70 SR X NO COMMENTS Minutes Post Exercise DURATION OF EXERCISE: 3:33 MAXIMUM HEART RATE REACHED: 116 REASON FOR TERMINATION: SHORT OF BREATH 100% OXYGEN SATURATION WITH EXERCISE ON ROOM AIR METS 6.0 INTERPRETATION: 1. NO EVIDENCE OF ISCHEMIA BY ST-T WAVE FROM HEART RATE 65 BPM TO 116 BPM 2. NO CHEST PAIN OR DISCOMFORT 3. NO ARRHYTHMIAS 4. BLOOD PRESSURE RESPONSE: NORMAL NORMAL LEFT VENTRICULAR CONTRACTILITY--RESTING AND POST EXERCISE MTDD
--- NOTE | 2018-04-27 10:50 | ECHOSTRESS ---
Date of Exam: 04/26/18 Ordering Physician: DR. THEODORE VICTORIA Reason for Echo: SYNCOPE, SOB, STRESS TEST--NO ISCHEMIA M-Mode Normal Adult Results LV Dimensions Normal Adult Results AoV Opening excursions >1.6 LVEDD-base- 3.5-5.8 Ao root dimensions 2.0-3.7 LVESD-base- 3.1-4.6 L. Atrium dimensions 1.9-3.8 Post. Wall thickness 0.8-1.1 IV septum (thickness) 0.7-1.2 Post. Wall excursion 0.72-1.3 Septal motion Systolic motion R. Ventricular cavity 1.5-2.0 LVEF 60% Paradoxical septal wall motion 2-D: NORMAL LEFT VENTRICULAR CONTRACTILITY--RESTING AND POST EXERCISE M-MODE: MV: AV: TV: PV: CHAMBER SIZE: WALL MOTION: NORMAL LEFT VENTRICULAR CONTRACTILITY--RESTING AND POST EXERCISE PERICARDIUM: INTERPRETATION: 1. NORMAL LEFT VENTRICULAR CONTRACTILITY--RESTING AND POST EXERCISE MTDD
== END 2018-04-26 06:48 | disposition home or self-care (01) ==
LOC: CAR 06:47
PROVIDERS: ATTEND Internal Medicine
DX: R06.02 Shortness of breath (principal); R55 Syncope and collapse
CPT/HCPCS: 93227

== ENCOUNTER 2018-05-05 12:56 | Outpatient (CLI) | END 2018-05-05 12:57 | disposition home or self-care (01) | LOC: CAR 12:56 | PROVIDERS: ATTEND Internal Medicine | DX: R06.02 Shortness of breath (principal); R55 Syncope and collapse ==

== ENCOUNTER 2018-05-30 16:03 | Inpatient (IN) | payer OTHER ==
--- NOTE | 2018-05-30 17:48 | CT ---
Exam: CT of the abdomen and pelvis without contrast History: Lower abdomen pain with prior diverticulitis Technique: [address] of the abdomen and pelvis without intravascular contrast FINDINGS: The lung bases are clear. No significant liver abnormality. The adrenals, pancreas and spl een are unremarkable. The stomach and hiatus are unremarkable.Prior cholecystectomy. Kidneys and prox imal collecting system are unremarkable. The appendix is normal. Bowel loops demonstrate normal calib er. No inflamatory change seen in the mesentery or retroperitoneum. Left colonic diverticulosis. Ath erosclerotic calcification of the aorta without aneurysm. Colonic diverticulosis of the sigmoid. Pericolonic inflammation is present with central offending di verticula. No abscess cavity or free intraperitoneal gas. Prior hysterectomy. Normal urinary bladd er. No acute findings of the skeleton. Prior fusion of L4-L5. Impression: 1. Pericolonic inflammation of the proximal sigmoid with central offending diverticula consistent wi th acute diverticulitis. No abscess or free intraperitoneal gas.
[2018-05-30] MEDS ORDERED: DEMEROL 25 MG/ML VIAL IVP STA (17:54)
[2018-05-30] MEDS ORDERED: ZOFRAN 4 MG/2 ML IVP STA (17:55)
--- NOTE | 2018-05-30 17:59 | ED.PDOC ---
General ED Provider: Dr. DANISHA CHAVEZ-ER Chief Complaint: Abdominal Pain Stated Complaint: im hurting and i think its my diverticulitis Time Seen by Physician: 16:10 Mode of Arrival: Walk-In Information Source: Patient Exam Limitations: No limitations Primary Care Provider: THEODORE PEREZ Nursing and Triage Documentation Reviewed and Agree: Yes Does patient meet sepsis criteria?: No System Inflammatory Response Syndrome: Not Applicable Sepsis Protocol: For patient's 13 years and over: Temp is 96.8 and below OR 101 and greater Pulse >90 BPM Resp >20/minute Acutely Altered Mental Status Are patient's symptoms suggestive of a new infection, such as: -Pneumonia -Skin, Soft Tissue -Endocarditis -UTI -Bone, Joint Infection -Implantable Device -Acute Abdominal Infection -Wound Infection -Meningitis -Blood Stream Catheter Infection -Unknown GI Complaint Exam - Abdominal Pain Complaint/Exam Onset: Gradual Duration: 2 days Symptoms Are: Still present Timing: Constant Initial Severity: Mild Current Severity: Moderate Location of Pain: Suprapubic Radiates To: Reports: Back Character: Reports: Dull, Aching, Cramping Alleviating: Reports: Spontaneous resolution Associated Signs and Symptoms: Reports: Nausea Ectopic Risk Factors: Reports: None Ovarian Torsion Risk Factors: Reports: None Surgical Obstruction Risk Factors: Reports: Colicky abdominal pain Patient Rh Status: Unknown Abdominal Findings: Present: None Differential Diagnoses: Diverticulitis Review of Systems - Review Of Systems Constitutional: Reports: No symptoms Eyes: Reports: No symptoms Ears, Nose, Mouth, Throat: Reports: No symptoms Respiratory: Reports: No symptoms Cardiac: Reports: No symptoms GI: Reports: Abdominal pain : Reports: No symptoms Musculoskeletal: Reports: No symptoms Skin: Reports: No symptoms Neurological: Reports: No symptoms Endocrine: Reports: No symptoms Hematologic/Lymphatic: Reports: No symptoms All Other Systems: Reviewed and Negative Past Medical History - Past Medical History Previously Healthy: Yes Endocrine: Reports: Dyslipidemia Cardiovascular: Reports: CAD, PR, Hypertension Respiratory: Reports: None Hematological: Reports: None Gastrointestinal: Reports: Diverticulitis Genitourinary: Reports: None Neuro/Psych: Reports: TIA, Depression Musculoskeletal: Reports: Arthritis Cancer: Reports: None Last Menstrual Period: none Other Pertinent Past Medical History: coronary embolism - Surgical History General Surgical History: Reports: Hysterectomy, Orthopedic (CERVICAL FUSION). Denies: CABG (HEART CATH, coronary embolism) - Family History Family History: Reports: Unknown - Social History Smoking Status: Never smoker Hx Substance Use: No Alcohol Screening: None Physical Exam - Physical Exam Appearance: Well-appearing, No pain distress, Well-nourished Pain Distress: Mild Eyes: PANCHITO, EOMI, Conjunctiva clear ENT: Ears normal, Nose normal, Oropharynx normal Neck: Supple Respiratory: Airway patent, Breath sounds clear, Breath sounds equal, Respirations nonlabored Cardiovascular: RRR, Pulses normal, No rub, No murmur GI/: Soft, No masses, Tender Musculoskeletal: Normal strength, ROM intact, No edema, No calf tenderness Skin: Warm, Dry, Normal color Neurological: Sensation intact, Motor intact, Reflexes intact, Cranial nerves intact, Alert, Oriented Psychiatric: Affect appropriate, Mood appropriate, Anxious Interpretation - Radiology Interpretation Radiology Interpretation By: Radiologist Radiology Results: Positive Exam Interpreted: CT Scan Physician Notification - Case Discussed Physician Notified: dr perez Time of Notification: 17:58 Critical Care Note - Critical Care Note Total Time (mins): 0 Course - Course Hematology/Chemistry: 05/30/18 16:15 05/30/18 16:15 Orders, Labs, Meds: Lab Review 05/30/18 05/30/18 05/30/18 16:15 16:15 16:15 WBC 10.54 H RBC 4.48 Hgb 13.3 Hct 38.7 MCV 86.4 MCH 29.7 MCHC 34.4 RDW Coeff of Mayra 12.2 Plt Count 206 Immature Gran % (Auto) 0.3 Neut % (Auto) 61.2 Lymph % (Auto) 27.5 [place] % (Auto) 9.6 Eos % (Auto) 0.8 Baso % (Auto) 0.6 Immature Gran # (Auto) 0.0 Neut # (Auto) 6.5 Lymph # (Auto) 2.9 [place] # (Auto) 1.0 Eos # (Auto) 0.1 Baso # (Auto) 0.1 ESR 53 H Sodium 139 Potassium 4.0 Chloride 104 Carbon Dioxide 26 Anion Gap 13.0 BUN 12 Creatinine 0.96 Estimated GFR (MDRD) 59.00 BUN/Creatinine Ratio 12.50 Glucose 127 H Calcium 9.0 Total Bilirubin 1.1 AST 27 ALT 20 Alkaline Phosphatase 75 Total Protein 8.2 Albumin 4.1 Globulin 4.1 Albumin/Globulin Ratio 1.00 Amylase 70 Lipase 129 Orders Category Date Time Status AMYLASE Stat LAB 05/30/18 16:15 Completed CBC W/ AUTO DIFF Stat LAB 05/30/18 16:15 Completed COMPREHENSIVE METABOLIC PANEL Stat LAB 05/30/18 16:15 Completed ESR Stat LAB 05/30/18 16:15 Completed LIPASE Stat LAB 05/30/18 16:15 Completed URINALYSIS C & S IF INDICATED Stat LAB 05/30/18 16:34 Ordered Meperidine HCl/Pf [Demerol 25 mg/ml Vial] MEDS 05/30/18 17:54 Discontinued 25 mg IVP ONCE STA Ondansetron HCl/Pf [Zofran 4 mg/2 ml] MEDS 05/30/18 17:55 Discontinued 4 mg IVP ONCE STA CT ABDOMEN/PELVIS WO CONTRAST Stat RADS 05/30/18 16:11 Completed Medications Discontinued Medications Generic Name Dose Route Start Last Admin Trade Name Freq PRN Reason Stop Dose Admin Meperidine HCl 25 mg 05/30/18 17:54 Demerol 25 Mg/Ml Vial IVP 05/30/18 17:55 ONCE STA Ondansetron HCl 4 mg 05/30/18 17:55 Zofran 4 Mg/2 Ml IVP 05/30/18 17:56 ONCE STA Vital Signs: Temp Pulse Resp BP Pulse Ox 05/30/18 16:04 99.0 F 97 H 18 85/66 L 97 Departure - Departure Time of Disposition: 17:59 Disposition: ADMITTED INPATIENT Discharge Problem: Diverticulitis Instructions: Diverticulitis (ED) Condition: Good Pt referred to PMD for follow-up: Yes IPMP verified?: No Allergies/Adverse Reactions: Allergies clonidine Adverse Reaction (Verified 05/30/18 16:08) clopidogrel bisulfate [From Plavix] Adverse Reaction (Verified 05/30/18 16:08) cortisone Adverse Reaction (Verified 05/30/18 16:09) enalaprilat [From Vasotec] Adverse Reaction (Verified 05/30/18 16:09) Latex, Natural Rubber Adverse Reaction (Verified 05/30/18 16:08) levothyroxine sodium [From Synthroid] Adverse Reaction (Verified 05/30/18 16:09) Penicillins Adverse Reaction (Verified 05/30/18 16:08) senna Adverse Reaction (Verified 05/30/18 16:08) Courwtm-Fsc-Efb Reductase Inhibitor Adverse Reaction (Verified 05/30/18 16:08) antipsychotics Adverse Reaction (Uncoded 08/24/17 12:45) steroids Adverse Reaction (Uncoded 05/30/18 16:09) Home Medications: Ambulatory Orders Alprazolam [Xanax] 0.5 mg PO PRN PRN 11/20/14 Alprazolam [Xanax] 2 mg PO BEDTIME 11/20/14 Bisoprolol Fumarate/Hctz [Ziac 5-6.25 mg] 1 tab PO DAILY 11/20/14 Doxepin HCl 10 mg PO BEDTIME 11/20/14 Furosemide [Lasix] 40 mg PO DAILY 11/20/14 Losartan Potassium 150 mg PO DAILY 11/20/14 Multivit-Min/FA/Lycopene/Lut [Centrum Silver Tablet] 1 tab PO DAILY 11/20/14 Niacin [Niaspan] 1,000 mg PO BEDTIME 11/20/14 Potassium Chloride [Klor-Con M15] 30 meq PO DAILY 11/20/14 Trazodone HCl 200 mg PO BEDTIME 11/20/14 Magnesium Oxide [Mag-Ox] 400 mg PO DAILY 11/23/15 Vilazodone HCl [Viibryd] 40 mg PO QAM 11/23/15 Aspirin 325 mg PO DAILY 02/19/18 Cholecalciferol (Vitamin D3) [Vitamin D3] 10,000 unit PO DAILY 05/30/18 Disposition Discussed With: Patient, Family
[2018-05-30] MEDS ORDERED: LEVAQUIN 500 MG in PREMIX 100 ML D5W 1 BAG IV SCH (18:30)
[2018-05-30 19:45] VITALS: BMI 41.4
[2018-05-30] MEDS: DEMEROL 25 MG/ML VIAL IVP PRN (20:10)
[2018-05-30] MEDS: ZOFRAN 4 MG/2 ML IVP PRN (20:10)
[2018-05-30] MEDS ORDERED: ALPRAZOLAM 2 MG PO SCH (21:00)
[2018-05-30] MEDS ORDERED: DOXEPIN HCL 10 MG PO SCH (21:00)
[2018-05-30] MEDS ORDERED: NON-FORMULARY MEDICATION (Trazodone Hcl [Trazodone Hcl] 200 MG) PO SCH (21:00)
[2018-05-30] MEDS ORDERED: FLAGYL 500 MG/100 ML 100 ML IV ONE (21:08)
[2018-05-30] MEDS ORDERED: DESYREL ONE ×2 (21:09→21:16)
[2018-05-30] MEDS ORDERED: LEVAQUIN 100 ML IV ONE (21:09)
[2018-05-30] MEDS ORDERED: XANAX ONE (21:17)
[2018-05-30] MEDS: D5%-NS-KCL 20 MEQ/L IV SOL 1,000 ML IV SCH (21:23)
[2018-05-30] MEDS: FLAGYL 500 MG/100 ML 500 MG in PREMIX 100 ML NS 1 BAG IV SCH ×3 (21:27→22:54)
[2018-05-31] MEDS: ZOFRAN 4 MG/2 ML IVP PRN ×5 (00:01→17:53)
[2018-05-31] MEDS: DEMEROL 25 MG/ML VIAL IVP PRN ×6 (00:01→23:23)
[2018-05-31] MEDS ORDERED: FLAGYL 500 MG/100 ML 100 ML IV ONE (04:25)
[2018-05-31] MEDS: FLAGYL 500 MG/100 ML 500 MG in PREMIX 100 ML NS 1 BAG IV SCH ×3 (04:28→20:59)
[2018-05-31] MEDS: D5%-NS-KCL 20 MEQ/L IV SOL 1,000 ML IV SCH ×2 (06:14→19:52)
[2018-05-31] MEDS ORDERED: D5%-NS-KCL 20 MEQ/L IV SOL 1,000 ML IV SCH (07:50)
[2018-05-31] MEDS ORDERED: PROTONIX PO STA (08:01)
[2018-05-31] MEDS ORDERED: TORADOL IVP STA (08:48)
[2018-05-31] MEDS: ASPIRIN EC PO SCH (08:51)
[2018-05-31] MEDS: NON-FORMULARY MEDICATION (Cholecalciferol (Vitamin D3) [Vitamin D3] 10,000 UNIT) PO SCH (08:52)
[2018-05-31] MEDS: LASIX TAB PO SCH (08:53)
[2018-05-31] MEDS: COZAAR PO SCH (08:53)
[2018-05-31] MEDS: MICRO-K CAP PO SCH (08:54)
[2018-05-31] MEDS: MAG-OX PO SCH (08:54)
[2018-05-31] MEDS: VILAZODONE HCL 40 MG PO SCH (08:56)
[2018-05-31] MEDS: ZIAC 5-6.25 MG PO SCH (08:57)
[2018-05-31] MEDS: LOVENOX SUBCUT SCH (08:57)
[2018-05-31] MEDS ORDERED: POTASSIUM CHLORIDE 30 MEQ PO SCH (09:00)
[2018-05-31] MEDS ORDERED: NON-FORMULARY MEDICATION (Aspirin [Aspirin] 325 MG) PO SCH (09:00)
[2018-05-31] MEDS ORDERED: COZAAR PO SCH ×2 (09:00)
[2018-05-31] MEDS: XANAX PO SCH ×2 (11:20→20:59)
--- NOTE | 2018-05-31 14:07 | PCM.PROG ---
Attending Provider: ATTENDING PROVIDER: Dr. THEODORE VICTORIA This patient is seen with Hanane Newton, Nurse Practitioner. DATE OF SERVICE: 05/31/18 SUBJECTIVE: This 62 year old WHITE/ F was hospitalized 05/30/18. The patient is lying in bed, alert, resting comfortably. The pain has been controlled with Demerol. REVIEW OF SYSTEMS: CONSTITUTIONAL: No night sweats. No fatigue, malaise, lethargy. No fever or chills. HEENT: Eyes: No visual changes. No eye pain. No eye discharge. ENT: No runny nose. No epistaxis. No sinus pain. No odynophagia. No congestion. RESPIRATORY: No cough, no congestion. No hemoptysis. No shortness of breath. CARDIOVASCULAR: No angina symptoms. No CHF symptoms. No atypical chest pain for CAD. No palpitations. No orthopnea.. GASTROINTESTINAL: Positive for abdominal pain. No nausea or vomiting. No diarrhea or constipation. No hematemesis. No hematochezia. GENITOURINARY: No urgency. No frequency. No dysuria. No hematuria. No obstructive symptoms. No discharge. No pain. No significant abnormal bleeding. MUSCULOSKELETAL: No musculoskeletal pain; no joint swelling. NEUROLOGICAL: Awake, alert, oriented to time, place and person. No headache. No neck pain. No syncope. No seizures. No dizziness. PSYCHIATRIC: Not anxious. No depression. No suicidal thoughts. No homicidal thoughts. SKIN: No rash. No lesions. No wounds. ENDOCRINE: No unexplained weight loss. No weight gain. HEMATOLOGIC/LYMPHATIC: No anemia. No purpura. No petechiae. No prolonged or excessive bleeding. No palpable lymph nodes. PHYSICAL EXAMINATION: GENERAL: The patient is awake, alert and oriented, lying in bed in no distress. VITAL SIGNS: Temperature 98.1 F, Pulse 80, Respiratory Rate 22, BP 92/53, Pulse Ox 97% HEENT: Head normocephalic, atraumatic. Eyes: Extraocular muscles are intact. Pupils are equal, round and reactive to light and accommodation. Ears: No lesions. Nose appeared normal. Throat: No exudate or erythema. NECK: Supple. No JVD, no carotid bruit. No lymphadenopathy or thyromegaly. LUNGS: Clear to auscultation. Percussion note normal. Chest symmetrical. HEART: S1, S2, no S3. No murmurs. No cyanosis or clubbing. No ascites. Pulses: Dorsalis pedis and posterior tibial pulses +1 to +2 both sides. ABDOMEN: Soft. Left lower quadrant tenderness. Bowel sounds active. No CVA tenderness. No mass felt. EXTREMITIES: No edema. Full range of motion of all extremities, equal. NEUROLOGIC: No focal deficit. Cranial nerves II through XII are grossly intact. No headache, no double vision or headache. SKIN: Not dry. Intact. Turgor-normal. LYMPHATIC: No palpable lymph nodes/no lymphedema. MUSCULOSKELETAL: Normal joints with no swelling. Muscle tone is normal. LAB REVIEW: 05/31/18 04:30 05/31/18 04:30 05/31/18 04:30: Sodium 141, Potassium 4.0, Chloride 106, Carbon Dioxide 27, Anion Gap 12.0, BUN 13, Creatinine 0.92, Estimated GFR (MDRD) 62.00, BUN/ Creatinine Ratio 14.13, Glucose 119 H, Calcium 8.4, Total Bilirubin 0.8, AST 21 , ALT 16, Alkaline Phosphatase 53, Total Protein 7.1, Albumin 3.4 L, Globulin 3.7, Albumin/Globulin Ratio 0.92 05/31/18 04:30: WBC 7.33, RBC 4.12 L, Hgb 12.2, Hct 36.4 L, MCV 88.3, MCH 29.6, MCHC 33.5, RDW Coeff of Mayra 12.2, Plt Count 180, Immature Gran % (Auto) 0.3, Neut % (Auto) 59.3, Lymph % (Auto) 28.0, [place] % (Auto) 10.0, Eos % (Auto) 1.9, Baso % (Auto) 0.5, Immature Gran # (Auto) 0.0, Neut # (Auto) 4.4, Lymph # (Auto ) 2.1, [place] # (Auto) 0.7, Eos # (Auto) 0.1, Baso # (Auto) 0.0 05/30/18 20:33: Urine Color Dark, Urine Clarity Slightly, Urine pH 5.5, Ur Specific [place] 1.025, Urine Protein Trace, Urine Glucose (UA) Negative, Urine Ketones Negative, Urine Blood Negative, Urine Nitrite Negative, Urine Bilirubin Negative, Urine Urobilinogen 0.2, Ur Leukocyte Esterase Negative, Urine Microscopic WBC 2-5, Ur Squamous Epith Cells 10-20, Ur Transition Epith Cell 2-5 , Urine Bacteria 1+, Hyaline Casts 2-5, Urine Mucus 2+ 05/30/18 16:15: ESR 53 H 05/30/18 16:15: Sodium 139, Potassium 4.0, Chloride 104, Carbon Dioxide 26, Anion Gap 13.0, BUN 12, Creatinine 0.96, Estimated GFR (MDRD) 59.00, BUN/ Creatinine Ratio 12.50, Glucose 127 H, Calcium 9.0, Total Bilirubin 1.1, AST 27 , ALT 20, Alkaline Phosphatase 75, Total Protein 8.2, Albumin 4.1, Globulin 4.1 , Albumin/Globulin Ratio 1.00, Amylase 70, Lipase 129 05/30/18 16:15: WBC 10.54 H, RBC 4.48, Hgb 13.3, Hct 38.7, MCV 86.4, MCH 29.7, MCHC 34.4, RDW Coeff of Mayra 12.2, Plt Count 206, Immature Gran % (Auto) 0.3, Neut % (Auto) 61.2, Lymph % (Auto) 27.5, [place] % (Auto) 9.6, Eos % (Auto) 0.8, Baso % (Auto) 0.6, Immature Gran # (Auto) 0.0, Neut # (Auto) 6.5, Lymph # (Auto ) 2.9, [place] # (Auto) 1.0, Eos # (Auto) 0.1, Baso # (Auto) 0.1 ASSESSMENT: 1. ACUTE SIGMOID DIVERTICULITIS 2. GENERALIZED WEAKNESS 3. HYPOTENSION 4. ANXIETY PLAN: 1. Chest x-ray 2. Protonix 40 mg p.o. daily 3. Decrease Cozaar to 100 mg 4. Clear liquids 5. Decrease IV fluids to 75 mL/hr Plan and coordination of the patient's care discussed in the presence of Customer Liaison and nurse. CONDITION: Stable SCRIBED BY: AVA MCGHEE Supervisor Weaving scribed while in presence of service performed by Dr. Victoria/Hanane Newton APRN on 05/31/18 ([id number])
[2018-05-31] MEDS: DESYREL PO SCH (20:59)
[2018-05-31] MEDS: DOXEPIN HCL 10 MG PO SCH (21:00)
[2018-05-31] MEDS: LEVAQUIN 500 MG in PREMIX 100 ML D5W 1 BAG IV SCH (22:29)
--- NOTE | 2018-05-31 22:52 | DI ---
EXAM: PA and lateral views of the chest HISTORY: shortness of breath COMPARISON: Chest x-ray 01/10/[address] chest 11/02/2017 FINDINGS: The cardiomediastinal silhouette is normal. There is no pneumothorax or pleural effusion. There is no consolidation, nodule or mass. The osseous structures are stable with cervical fusion hardware. IMPRESSION: No acute cardiopulmonary process
[2018-06-01] MEDS: FLAGYL 500 MG/100 ML 500 MG in PREMIX 100 ML NS 1 BAG IV SCH ×3 (05:33→20:42)
[2018-06-01] MEDS: LASIX TAB PO SCH (05:33)
[2018-06-01] MEDS: PROTONIX PO SCH (05:34)
[2018-06-01] MEDS: DEMEROL 25 MG/ML VIAL IVP PRN ×3 (06:20→20:47)
[2018-06-01] MEDS: ASPIRIN EC PO SCH (08:56)
[2018-06-01] MEDS: NON-FORMULARY MEDICATION (Cholecalciferol (Vitamin D3) [Vitamin D3] 10,000 UNIT) PO SCH (08:57)
[2018-06-01] MEDS: COZAAR PO SCH (08:57)
[2018-06-01] MEDS: MICRO-K CAP PO SCH (08:58)
[2018-06-01] MEDS: MAG-OX PO SCH (08:58)
[2018-06-01] MEDS: ZIAC 5-6.25 MG PO SCH (08:59)
[2018-06-01] MEDS: VILAZODONE HCL 40 MG PO SCH (08:59)
[2018-06-01] MEDS: XANAX PO SCH ×2 (08:59→23:39)
[2018-06-01] MEDS: LOVENOX SUBCUT SCH (09:03)
--- NOTE | 2018-06-01 10:24 | PCM.PROG ---
Attending Provider: ATTENDING PROVIDER: Dr. THEODORE VICTORIA DATE OF SERVICE: 06/01/18 SUBJECTIVE: This 62 year old WHITE/ F was hospitalized 05/30/18 with acute diverticulitis on Levaquin and Flagyl. Condition improving. REVIEW OF SYSTEMS: CONSTITUTIONAL: No night sweats. No fatigue, malaise, lethargy. No fever or chills. HEENT: Eyes: No visual changes. No eye pain. No eye discharge. ENT: No runny nose. No epistaxis. No sinus pain. No odynophagia. No congestion. RESPIRATORY: No cough, no congestion. No hemoptysis. No shortness of breath. CARDIOVASCULAR: No angina symptoms. No CHF symptoms. No atypical chest pain for CAD. No palpitations. No orthopnea.. GASTROINTESTINAL: The patient wants to advance diet and get stronger. No abdominal pain. No nausea or vomiting. No diarrhea or constipation. No hematemesis. No hematochezia. GENITOURINARY: No urgency. No frequency. No dysuria. No hematuria. No obstructive symptoms. No discharge. No pain. No significant abnormal bleeding. MUSCULOSKELETAL: No musculoskeletal pain; no joint swelling. NEUROLOGICAL: Awake, alert, oriented to time, place and person. No headache. No neck pain. No syncope. No seizures. No dizziness. PSYCHIATRIC: Not anxious. No depression. No suicidal thoughts. No homicidal thoughts. SKIN: No rash. No lesions. No wounds. ENDOCRINE: No unexplained weight loss. No weight gain. HEMATOLOGIC/LYMPHATIC: No anemia. No purpura. No petechiae. No prolonged or excessive bleeding. No palpable lymph nodes. PHYSICAL EXAMINATION: GENERAL: The patient is awake, alert and oriented, lying in bed in no distress. VITAL SIGNS: Temperature 98.4 F, Pulse 64, Respiratory Rate 20, BP 115/71, Pulse Ox 98% HEENT: Head normocephalic, atraumatic. Eyes: Extraocular muscles are intact. Pupils are equal, round and reactive to light and accommodation. Ears: No lesions. Nose appeared normal. Throat: No exudate or erythema. NECK: Supple. No JVD, no carotid bruit. No lymphadenopathy or thyromegaly. LUNGS: Clear to auscultation. Percussion note normal. Chest symmetrical. HEART: S1, S2, no S3. No murmurs. No cyanosis or clubbing. No ascites. Pulses: Dorsalis pedis and posterior tibial pulses +1 to +2 both sides. ABDOMEN: Soft. Non-tender. Bowel sounds active. No CVA tenderness. No mass felt. EXTREMITIES: No edema. Full range of motion of all extremities, equal. NEUROLOGIC: No focal deficit. Cranial nerves II through XII are grossly intact. No headache, no double vision or headache. SKIN: Warm and dry. Intact. Turgor-normal. LYMPHATIC: No palpable lymph nodes/no lymphedema. MUSCULOSKELETAL: Normal joints with no swelling. Muscle tone is normal. LAB REVIEW: 06/01/18 05:30 06/01/18 05:30 06/01/18 05:30: Sodium 141, Potassium 4.09, Chloride 108 H, Carbon Dioxide 28.6 , Anion Gap 8.49, BUN 11, Creatinine 0.98, Estimated GFR (MDRD) 58.00, BUN/ Creatinine Ratio 11.22, Glucose 90.9, Calcium 8.4, Total Bilirubin 0.5, AST 22, ALT 15, Alkaline Phosphatase 50 L, Total Protein 6.9, Albumin 3.3 L, Globulin 3.6, Albumin/Globulin Ratio 0.92 06/01/18 05:30: WBC 4.79, RBC 3.94 L, Hgb 11.5 L, Hct 35.0 L, MCV 88.8, MCH 29.2 , MCHC 32.9, RDW Coeff of Mayra 12.0, Plt Count 194, Immature Gran % (Auto) 0.0, Neut % (Auto) 38.6, Lymph % (Auto) 44.3, [place] % (Auto) 11.1 H, Eos % (Auto) 5.2 , Baso % (Auto) 0.8, Immature Gran # (Auto) 0.0, Neut # (Auto) 1.9 L, Lymph # ( Auto) 2.1, [place] # (Auto) 0.5, Eos # (Auto) 0.3, Baso # (Auto) 0.0 ASSESSMENT: DIVERTICULITIS RESOLVING PLAN: 1. Diet discussed in detail 2. Continue Niaspan 3. Continue Doxepin 4. Sestamibi to be done tomorrow 5. Soft diet - avoid seeds Plan and coordination of the patient's care discussed in the presence of Store Clerk Cashier and nurse. EDUCATION: Discussed diet in detail. CONDITION: Stable SCRIBED BY: AVA MCGHEE Powder Truck Driver scribed while in presence of service performed by Dr. THEODORE VICTORIA on 06/01/18 ([id number])
[2018-06-01] MEDS: D5%-NS-KCL 20 MEQ/L IV SOL 1,000 ML IV SCH (12:32)
[2018-06-01] MEDS: DOXEPIN HCL 10 MG PO SCH (20:43)
[2018-06-01] MEDS: NIACIN 1000 MG PO SCH (20:44)
[2018-06-01] MEDS: DESYREL PO SCH (20:44)
[2018-06-01] MEDS: LEVAQUIN 500 MG in PREMIX 100 ML D5W 1 BAG IV SCH (22:31)
[2018-06-02] MEDS: D5%-NS-KCL 20 MEQ/L IV SOL 1,000 ML IV SCH ×2 (05:22→09:15)
[2018-06-02] MEDS: FLAGYL 500 MG/100 ML 500 MG in PREMIX 100 ML NS 1 BAG IV SCH ×3 (05:22→21:00)
[2018-06-02] MEDS ORDERED: DEMEROL 25 MG/ML VIAL IVP PRN (08:24)
[2018-06-02] MEDS ORDERED: COZAAR PO SCH (09:00)
[2018-06-02] MEDS: ASPIRIN EC PO SCH (09:07)
[2018-06-02] MEDS: PROTONIX PO SCH (09:08)
[2018-06-02] MEDS: MICRO-K CAP PO SCH (09:09)
[2018-06-02] MEDS: MAG-OX PO SCH (09:09)
[2018-06-02] MEDS: XANAX PO SCH ×2 (09:13→21:03)
[2018-06-02] MEDS: LASIX TAB PO SCH (09:13)
[2018-06-02] MEDS: ZIAC 5-6.25 MG PO SCH (09:13)
[2018-06-02] MEDS: VILAZODONE HCL 40 MG PO SCH (09:13)
[2018-06-02] MEDS: NON-FORMULARY MEDICATION (Cholecalciferol (Vitamin D3) [Vitamin D3] 10,000 UNIT) PO SCH (09:15)
[2018-06-02] MEDS: COZAAR PO SCH (09:19)
[2018-06-02] MEDS: LOVENOX SUBCUT SCH (09:20)
--- NOTE | 2018-06-02 10:23 | NM ---
Cardiac Stress Test HISTORY: Chest pain. Fainting. Shortness of breath. More progressive than the last 6 months. COMPARISON: 04/19/2012. TECHNIQUE: Resting: The patient was injected with 3.5 millicuries of thallium 201 chloride intravenously after which a "resting" SPECT study of the heart was performed. Stress: The patient was stressed using a Andrea protocol and at the appropriate time injected with 24 .3 mCi of 99m technetium Sestamibi (Cardiolite) after which a "stress" SPECT study of the heart was p erformed. Gated images of the heart were also obtained to assess wall motion and calculate ejection f raction. For details of the stress protocol employed, reference is made to the separate report of th e performing physician. FINDINGS: The stress perfusion images demonstrate the region of decreased activity in the inferior/i nferolateral wall segment extending from the apex to the base of the heart which improves at rest con sistent with redistribution/ischemia. This is confirmed on the computer evaluation. There is a more s ubtle region on the of decreased activity in the anterior wall which also appears to improve at rest and may represent a second region of ischemia or possibly breast attenuation artifact in a larger pat ient. This is not designated as a region of ischemia on the computer evaluation. The resting perfusio n images demonstrate no evidence of significant redistribution/ischemia elsewhere. The left ventricular ejection fraction (LVEF) is 67 %. IMPRESSION: 1. Left ventricular myocardial perfusion demonstrates findings consistent with a region of ischemia in the inferior/inferolateral wall segment extending from the apex to be at the base of the heart. Th ere is a second more subtle region of decreased activity in the anterior wall which could be associat ed with breast attenuation artifact as discussed in the report. 2. The left ventricular ejection fraction (LVEF) is 67 %.
--- NOTE | 2018-06-02 11:04 | ECHO2D ---
Date of Exam: 06/02/18 Ordering Physician: DR. THEODORE VICTORIA Room #: [id number] Reason for Echo: LVH, CHEST PAIN, SOB M-Mode Normal Adult Results LV Dimensions Normal Adult Results AoV Opening excursions >1.6 >1.6 LVEDD-base- 3.5-5.8 4.8 Ao root dimensions 2.0-3.7 3.5 LVESD-base- 3.1-4.6 L. Atrium dimensions 1.9-3.8 3.9 Post. Wall thickness 0.8-1.1 1.2 IV septum (thickness) 0.7-1.2 1.1 Post. Wall excursion 0.72-1.3 NORMAL Septal motion NORMAL Systolic motion R. Ventricular cavity 1.5-2.0 NORMAL LVEF 60% 56% Paradoxical septal wall motion NORMAL 2-D : 2-D M Mode Echocardiogram was performed using apical four chamber and left parasternal long and short axis views. Mitral, tricuspid and aortic valves appear to be normal. Contractility of the left ventricle seems to be normal, so is the cavity size. Left atrial cavity size and aortic root appear to be normal. There is no pericardial effusion. There is no thrombus noted in the left ventricular or left aortic cavity. No mitral valve prolapse noted. M-MODE: MV: NORMAL AV: NORMAL TV: NORMAL PV: CHAMBER SIZE: NORMAL WALL MOTION: NORMAL PERICARDIUM: NORMAL INTERPRETATION: 1. BORDERLINE LEFT VENTRICULAR CONTRACTILITY HYPERTROPHY 2. NORMAL LEFT VENTRICULAR CONTRACTILITY 3. NORMAL VALVES MTDD
--- NOTE | 2018-06-02 11:19 | STECHOSEST ---
Date of Test: 06/02/18 Ordering Physician: DR. THEODORE VICTORIA Occupation: RETIRED Reason for Exam: CHEST PAIN, SOB Smoking History: QUIT 32 YRS AGO Height : 69" Weight: 280 LBS Current Medications: XANAX, ZIAC, LOVENOX, LASIX, COZAAR, VIIBRYD, DOXEPIN, ZOFRAN, PROTONIX, TRAZODONE Resting EKG: SINUS RHYTHM/ NO ACUTE CHANGES Target Heart Rate: 136/160 S-T SEGMENT STAGE MPH/GRADE HEART RATE BPM BLOOD PRESSURE mmhg RHYTHM +/- ELEVATION DEPRESSION SYMPTOMS,COMMENTS At Rest 48 138/76 SR X NONE 1 1.7/10% 98 146/80 SR X NONE 2 2.5/12% 110 152/76 SR X NONE 3 3.4/14% 4 4.2/16% 5 5.0/18% Immediately after 115 SR X SHORT OF BREATH Minutes Post Exercise 5:00 60 122/70 SR X NO COMMENTS Minutes Post Exercise Total Time: 8:04 Maximum Heart Rate Reached: 115 BPM Reason for Termination: SHORT OF BREATH 96% Oxygen saturation on room air with exercises Mets 4.6 INTERPRETATION 1. NO EVIDENCE OF ISCHEMIA FROM RESTING HEART RATE 45 BPM TO 115 BPM WITH EXERCISE 2. NO CHEST PAIN OR DISCOMFORT 3. BLOOD PRESSURE RESPONSE: NORMAL 4. NO ARRHYTHMIAS NORMAL LEFT VENTRICULAR CONTRACTILITY RESTING AND POST EXERCISE SESTAMIBI TO FOLLOW MTDD
--- NOTE | 2018-06-02 12:50 | HP ---
DATE OF SERVICE: 05/30/18 REASON FOR HOSPITALIZATION/HISTORY OF PRESENT ILLNESS: 62 year old white female who presented to the emergency room complaining of left lower quadrant abdominal pain. She has a history of diverticulitis. She has started running a low grade fever at home and was unable to eat or drink anything. She had been experiencing some dizziness. PAST MEDICAL HISTORY: Most recently she had been complaining of atypical sharp chest pain on her last visit in the hospital. On 05/28/18 she is scheduled for a stress echo sestamibi on 06/02/18 as well as an echo. 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 Refuses all Statins due to side effects PAST SURGICAL HISTORY: Lumbar spine T12 and L1 by Dr. Kaur Status post hysterectomy C spine surgery REVIEW OF SYSTEMS: CONSTITUTIONAL: No night sweats. No fatigue, malaise, lethargy. No fever or chills. Weakness and fatigue. HEENT: Eyes: No visual changes. No eye pain. No eye discharge. ENT: No runny nose. No epistaxis. No sinus pain. No sore throat. No odynophagia. No ear pain. No congestion. RESPIRATORY: No cough, no congestion. No hemoptysis. No shortness of breath. CARDIOVASCULAR: No angina symptoms. No CHF symptoms. No atypical chest pain for CAD. No palpitations. No PND. No orthopnea. GASTROINTESTINAL: Left lower quadrant abdominal pain. Nausea. Diarrhea. No hematemesis. No hematochezia. GENITOURINARY: No urgency. No frequency. No dysuria. No hematuria. No obstructive symptoms. No discharge. No pain. No significant abnormal bleeding. MUSCULOSKELETAL: No musculoskeletal pain. No joint swelling. No arthritis. NEUROLOGICAL: No headache. No neck pain. No syncope. No seizures. No dizziness. PSYCHIATRIC: Not anxious. No depression. No suicidal thoughts. No homicidal thoughts. SKIN: No rash. No lesions. No wounds. ENDOCRINE: No unexplained weight loss. No weight gain. HEMATOLOGIC/LYMPHATIC: No anemia. No purpura. No petechiae. No prolonged or excessive bleeding. No palpable lymph nodes. PERSONAL/FAMILY/SOCIAL HISTORY: The patient is a nonsmoker, she is and she currently lives with her at home and cares for her mother. No alcohol or illicit drug use. MEDICATIONS: Xanax 2mg PO bedtime Trazodone 200mg PO bedtime Doxepin 10m,g PO bedtime Ziac 5-6.25 one tablet PO daily Niaspan 1000mg PO bedtime Centrum silver one tablet PO daily Potassium Chloride 30meq PO daily Losartan Potassium 150mg Po daily Lasix 40mg Po daily Xanax 0.5mg PO PRN Viibryd 40mg PO QAM Mag-Ox 400mg PO bedtime Aspirin 325mg Po daily Vitamin D3 10,000 unit PO daily ALLERGIES: Clonidine Clopidogrel Cortisone Enalaprilat Latex Levothyroxine Penicillins Senna Statins Antipsychotics Steroids PHYSICAL EXAMINATION: VITAL SIGNS: Temperature 99, heart rate 97, respiratory rate 18, blood pressure 85/66 and pulse ox 97%. HEENT: Head normocephalic, atraumatic. Eyes: Extraocular muscles are intact. Pupils are equal, round and reactive to light and accommodation. Ears: No lesions. Nose appeared normal. Throat: No exudate or erythema. NECK: Supple. No JVD, no carotid bruit. No lymphadenopathy or thyromegaly. LUNGS: Clear to auscultation. Percussion note normal. Chest symmetrical. HEART: S1, S2, no S3. No murmurs. No cyanosis or clubbing. No ascites. Pulses: Dorsalis pedis and posterior tibial pulses +1 to +2 bilaterally. ABDOMEN: Soft. mild tenderness left lower quadrant with guarding. Bowel sounds active. No CVA tenderness. No mass felt. EXTREMITIES: No edema. Full range of motion of all extremities, equal. NEUROLOGIC: No focal deficit. Cranial nerves II through XII are grossly intact. No headache, no double vision or headache. SKIN: Not dry. Intact. Turgor - normal. LYMPHATIC: No palpable lymph nodes/no lymphedema. MUSCULOSKELETAL: Normal joints with no swelling. Muscle tone is normal. LABS: CT scan shows acute diverticulitis of the sigmoid colon. WBC 10.54, hgb 13.3, hct 38.7, plt count 206, sodium 139, potassium 4.0, BUN 12, creatinine 0.96, glucose 127, AST 27, ALT 20, total protein 8.2, Amylase 70, Lipase 129. ASSESSMENT: 1. Acute sigmoid diverticulitis 2. Hypotension 3. Dehydration 4. Recent complaint of sharp chest pain with history of severe dyslipidemia which she is noncompliant with cholesterol medications. 5. Hypertension 6. LVH 7. Obesity PLAN: 1. We will admit the patient 2. Routine telemetry orders 3. IV normal saline at 100c an hour 4. The patient is to be on a clear liquid diet 5. Chest x-ray 6. Start Protonix 40mg PO daily 7. Daily CBC and CMP 8. Levaquin 500mg IV daily 9. Continue all home medications. 10.For some reason the patient is taking 150mg of Cozaar she reported. She is hypotensive will hold her blood pressure medications. 11.She is on Lovenox 40 SUBCUT daily prophylactically 12.Start Flagyl 500mg IV Q 8 hours 13.We will monitor closely 14.Demerol 25mg IV Q 4 hours PRN 15.We will later evaluate in the week whether or not we will continue with the stress test sestamibi TIME SPENT: More than 70 minutes. MTDD
--- NOTE | 2018-06-02 12:52 | CT ---
EXAM: CT Abdomen without contrast. CT Pelvis without contrast. HISTORY: Sigmoid diverticulitis follow-up. COMPARISON: 05/30/2018. TECHNIQUE: Multiple axial images of the abdomen and pelvis were obtained without intravenous contras t. Images were reformatted in the sagittal and coronal plane. FINDINGS: Please note that evaluation of the abdominal and pelvic structures is limited due to lack of intravenous contrast. No acute abnormality identified in the lung bases. Calcified granuloma noted in the lingula. Degenerative changes present. The spine with posterior fusion changes at L4-5. Old mild superior en dplate compression deformity of T8 noted. Mild to moderate right and severe left hip osteoarthritis noted five. Gallbladder is absent. The liver, pancreas, spleen, adrenal glands, and kidneys demonstrate normal c ontour. No calcified renal stones or hydronephrosis identified. Sigmoid colonic wall thickening with adjacent inflammation, occurring in the setting of diverticulosi s. This is stable. There is no evidence for perforation or abscess. There is no evidence for bowel obstruction. The appendix is normal. Duodenal diverticulum noted. Nonenlarged mesenteric and retrop eritoneal lymph node is noted which are stable. Bladder is normal. Uterus is absent. Small amount of free pelvic fluid is present. No free air janey ntified. Phleboliths in the pelvis. Atherosclerotic calcifications present. IMPRESSION: Stable sigmoid diverticulitis. No complication identified.
--- NOTE | 2018-06-02 14:42 | PN ---
DATE OF SERVICE: 06/02/18 SUBJECTIVE: The patient was examined this morning. She had Dobutamine stress echo Sestamibi done. The patient has a positive for inferolateral wall reversible ischemia. The patient's existing problem, acute diverticulitis which has clinically resolved but the CT scan repeat still shows stable acute diverticulitis. The patient was explained about these findings and explained that she cannot have coronary angiogram right now because of acute diverticulitis, no one would accept her as a patient to do that procedure with acute diverticulitis. The patient wants to go home. REVIEW OF SYSTEMS: CONSTITUTIONAL: No night sweats. No fatigue, malaise, lethargy. No fever or chills. HEENT: Eyes: No visual changes. No eye pain. No eye discharge. ENT: No runny nose. No epistaxis. No sinus pain. No sore throat. No odynophagia. No congestion. RESPIRATORY: No cough, no congestion. No hemoptysis. No shortness of breath. CARDIOVASCULAR: No angina symptoms. No CHF symptoms. No atypical chest pain for CAD. No palpitations. No orthopnea. No PND. GASTROINTESTINAL: No abdominal pain. No nausea or vomiting. No diarrhea or constipation. No hematemesis. No hematochezia. GENITOURINARY: No urgency. No frequency. No dysuria. No hematuria. No obstructive symptoms. No discharge. No pain. No significant abnormal bleeding. MUSCULOSKELETAL: No musculoskeletal pain; no joint swelling. NEUROLOGICAL: No headache. No neck pain. No syncope. No seizures. No dizziness. PSYCHIATRIC: Not anxious. No depression. No suicidal thoughts. No homicidal thoughts. SKIN: No rash. No lesions. No wounds. ENDOCRINE: No unexplained weight loss. No weight gain. HEMATOLOGIC/LYMPHATIC: No anemia. No purpura. No petechiae. No prolonged or excessive bleeding. No palpable lymph nodes. PHYSICAL EXAMINATION: GENERAL: The patient is oriented to time, place and person HEENT: Head normocephalic, atraumatic. Eyes: Extraocular muscles are intact. Pupils are equal, round and reactive to light and accommodation. Ears: No lesions. Nose appeared normal. Throat: No exudate or erythema. NECK: Supple. No JVD, no carotid bruit. No lymphadenopathy or thyromegaly. LUNGS: Clear to auscultation. Percussion note normal. Chest symmetrical. HEART: S1, S2, no S3. No murmurs. No cyanosis or clubbing. No ascites. Pulses: Dorsalis pedis and posterior tibial pulses +1 to +2 both sides. ABDOMEN: Soft. Nontender. Bowel sounds active. No CVA tenderness. No mass felt. EXTREMITIES: No edema. Full range of motion of all extremities, equal. NEUROLOGIC: No focal deficit. Cranial nerves II through XII are grossly intact. No headache, no double vision or headache. SKIN: Not dry. Intact. Turgor - normal. LYMPHATIC: No palpable lymph nodes/no lymphedema. MUSCULOSKELETAL: Normal joints with no swelling. Muscle tone is normal. ASSESSMENT: 1. ACUTE DIVERTICULITIS 2. INCIDENTAL FINDING ON DOBUTAMINE STRESS ECHO, REVERSIBLE ISCHEMIA OF INFRALATERAL WALL 3. HYPERTENSION 4. DYSLIPIDEMIA 5. OBESITY Echo showed normal LV contractility, borderline LVH. Dobutamine stress Sestamibi positive for reversible ischemia, acute diverticulitis, clinically has resolved. PLAN: 1. Continue antibiotics. 2. If the patient's condition stabilizes then we can transfer her for further workup for abnormal Sestamibi. CONDITION: Otherwise stable. TIME SPENT: More than 30 minutes. Plan and coordination of the patient's care discussed in the presence of nurse. NEO
--- NOTE | 2018-06-02 14:45 | PN ---
DATE OF SERVICE: 05/31/18 SUBJECTIVE: The patient was hospitalized with abdominal pain, diverticulitis. The patient is being treated with IV antibiotics. The patient was seen and examined with the nurse practitioner. TIME SPENT: More than 30 minutes. Plan and coordination of the patient's care discussed in the presence of nurse. NEO
[2018-06-02] MEDS: DESYREL PO SCH (21:00)
[2018-06-02] MEDS: NIACIN 1000 MG PO SCH (21:00)
[2018-06-02] MEDS: DOXEPIN HCL 10 MG PO SCH (21:00)
[2018-06-02] MEDS: LEVAQUIN 500 MG in PREMIX 100 ML D5W 1 BAG IV SCH (22:38)
[2018-06-03] MEDS: FLAGYL 500 MG/100 ML 500 MG in PREMIX 100 ML NS 1 BAG IV SCH (04:42)
[2018-06-03] MEDS: PROTONIX PO SCH (05:50)
[2018-06-03] MEDS: LASIX TAB PO SCH (05:50)
[2018-06-03] MEDS: MICRO-K CAP PO SCH (08:37)
[2018-06-03] MEDS: VILAZODONE HCL 40 MG PO SCH (08:37)
[2018-06-03] MEDS: COZAAR PO SCH (08:37)
[2018-06-03] MEDS: ASPIRIN EC PO SCH (08:37)
[2018-06-03] MEDS: ZIAC 5-6.25 MG PO SCH (08:37)
[2018-06-03] MEDS: XANAX PO SCH (08:37)
[2018-06-03] MEDS: NON-FORMULARY MEDICATION (Cholecalciferol (Vitamin D3) [Vitamin D3] 10,000 UNIT) PO SCH (08:37)
[2018-06-03] MEDS: LOVENOX SUBCUT SCH (08:38)
[2018-06-03] MEDS: MAG-OX PO SCH (08:38)
--- NOTE | 2018-06-03 09:53 | PCM.PROG ---
Attending Provider: ATTENDING PROVIDER: Dr. THEODORE VICTORIA This patient is seen with Hanane Newton, Nurse Practitioner. DATE OF SERVICE: 06/03/18 SUBJECTIVE: This 63 year old WHITE/ F was hospitalized 05/30/18. The patient is resting comfortably in bed. She had questionable positive stress test yesterday. CT scan showed stable diverticulitis however the patient's symptoms have significantly improved. She is eating 75 to 100% of her meals, on regular diet. She reports no pain or diarrhea. No fever. WBC is normal. REVIEW OF SYSTEMS: CONSTITUTIONAL: No night sweats. No fatigue, malaise, lethargy. No fever or chills. HEENT: Eyes: No visual changes. No eye pain. No eye discharge. ENT: No runny nose. No epistaxis. No sinus pain. No odynophagia. No congestion. RESPIRATORY: No cough, no congestion. No hemoptysis. No shortness of breath. CARDIOVASCULAR: No angina symptoms. No CHF symptoms. No atypical chest pain for CAD. No palpitations. No orthopnea.. GASTROINTESTINAL: No abdominal pain. No nausea or vomiting. No diarrhea or constipation. No hematemesis. No hematochezia. GENITOURINARY: No urgency. No frequency. No dysuria. No hematuria. No obstructive symptoms. No discharge. No pain. No significant abnormal bleeding. MUSCULOSKELETAL: No musculoskeletal pain; no joint swelling. NEUROLOGICAL: Awake, alert, oriented to time, place and person. No headache. No neck pain. No syncope. No seizures. No dizziness. PSYCHIATRIC: Anxious. No depression. No suicidal thoughts. No homicidal thoughts. SKIN: No rash. No lesions. No wounds. ENDOCRINE: No unexplained weight loss. No weight gain. HEMATOLOGIC/LYMPHATIC: No anemia. No purpura. No petechiae. No prolonged or excessive bleeding. No palpable lymph nodes. PHYSICAL EXAMINATION: GENERAL: The patient is awake, alert and oriented, lying in bed in no distress. VITAL SIGNS: Temperature 98.5 F, Pulse 77, Respiratory Rate 18, BP 111/70, Pulse Ox 99% HEENT: Head normocephalic, atraumatic. Eyes: Extraocular muscles are intact. Pupils are equal, round and reactive to light and accommodation. Ears: No lesions. Nose appeared normal. Throat: No exudate or erythema. NECK: Supple. No JVD, no carotid bruit. No lymphadenopathy or thyromegaly. LUNGS: Clear to auscultation. Percussion note normal. Chest symmetrical. HEART: S1, S2, no S3. No murmurs. No cyanosis or clubbing. No ascites. Pulses: Dorsalis pedis and posterior tibial pulses +1 to +2 both sides. ABDOMEN: Soft. No abdominal tenderness. Bowel sounds active. No CVA tenderness. No mass felt. EXTREMITIES: No edema. Full range of motion of all extremities, equal. NEUROLOGIC: No focal deficit. Cranial nerves II through XII are grossly intact. No headache, no double vision or headache. SKIN: Not dry. Intact. Turgor-normal. LYMPHATIC: No palpable lymph nodes/no lymphedema. MUSCULOSKELETAL: Normal joints with no swelling. Muscle tone is normal. LAB REVIEW: 06/03/18 04:30 06/03/18 04:30 06/03/18 04:30: Sodium 139.9, Potassium 3.71, Chloride 104.8, Carbon Dioxide 28.0, Anion Gap 10.81, BUN 11.7, Creatinine 0.97, Estimated GFR (MDRD) 58.00, BUN/Creatinine Ratio 12.06, Glucose 109.5 H, Calcium 9.01, Total Bilirubin 0.29 , AST 32.7, ALT 21.2, Alkaline Phosphatase 48.7 L, Total Protein 6.94, Albumin 3.35 L, Globulin 3.59, Albumin/Globulin Ratio 0.93 06/03/18 04:30: WBC 6.36, RBC 4.22, Hgb 12.5, Hct 36.7 L, MCV 87.0, MCH 29.6, MCHC 34.1, RDW Coeff of Mayra 12.0, Plt Count 207, Immature Gran % (Auto) 0.2, Neut % (Auto) 43.1, Lymph % (Auto) 42.6, Aurora % (Auto) 10.7 H, Eos % (Auto) 2.8 , Baso % (Auto) 0.6, Immature Gran # (Auto) 0.0, Neut # (Auto) 2.7, Lymph # ( Auto) 2.7, Aurora # (Auto) 0.7, Eos # (Auto) 0.2, Baso # (Auto) 0.0 ASSESSMENT: 1. ACUTE DIVERTICULITIS RESOLVING 2. POSITIVE STRESS TEST SHOWING POSSIBLE ISCHEMIA 3. ANXIETY PLAN: 1. Will consult [facility] regarding transfer otherwise if not transferred, the patient wishes to be discharged home. Plan and coordination of the patient's care discussed in the presence of Fleet Manager and nurse. CONDITION: Stable SCRIBED BY: AVA MCGHEE Coil Maker scribed while in presence of service performed by Dr. Victoria/Hanane Newton APRN on 06/03/18 ([id number])
[2018-06-03 09:58] VITALS: BP 116/76; TEMP 98.6
--- NOTE | 2018-06-03 10:17 | DS ---
DATE OF SERVICE: 06/03/18 FINAL DIAGNOSIS: 1. Acute sigmoid diverticulitis, localized resolved 2. Positive stress sestamibi but reversible ischemia inferolateral wall 3. Sciatica with lumbar surgery 4. History of hypertension/LVH 5. Obesity with BMI of 37 6. Dyslipidemia treated with Niaspan unable to tolerate Statins 7. Status post cervical spine surgery 8. Neuropathy 9. Status post cholecystectomy 10.Hysterectomy 11.History of recurrent diverticulitis with diverticulosis 12.History of panic disorder/anxiety disorder DISCHARGE INSTRUCTIONS: Transfer to [facility]. Continue medications as listed on nursing discharge. Stop taking Losartan 150mg daily. New Losartan dose is 50mg daily. An appointment is scheduled with Dr. Zimmer/Hanane Newton on June 07 at 11:45am. MEDICATIONS AT DISCHARGE: Aspirin 325mg PO daily Bisoprolol 5-6.25 PO daily Cozaar 50mg PO daily Lasix 40mg PO daily K-Tab 10meq PO daily Protonix 40mg PO QPM Niaspan 1000mg at bedtime Trazodone 200mg PO at night Xanax 0.5mg PO PRN during the day time and 2mg PO at HS Viibryd 40mg PO QAM Doxepin 10mg PO at HS NEW PRESCRIPTIONS: Levaquin 250mg PO daily Cozaar 50mg PO daily Flagyl 500mg PO Q 8 hours DIET INSTRUCTIONS: Diverticulitis ( No seeds, nuts or husks) ACTIVITY: Resume as tolerated but follow instructions given by Dr. Duron. SMOKING: Never smoker DISEASE SPECIFIC EDUCATION: New medications Transfer Diet LABS: Hgb 12.5, hct 36, WBC 6,300 normal differential, creatinine 0.9, BUN 11.7, potassium 3.7, glucose 109 these were done on 06/03/18. Non HDL 165 on 04/16/18. HOSPITAL COURSE: 63 year old white female was hospital on 05/30/18 with abdominal pain and acute diverticulitis which was sigmoid localized. For the last three days that patient has been up and about tolerating the diet well with normal bowel movements. She has been afebrile with normal WBC count, stable hgb and hct. The patient no symptoms of CHF or coronary insufficiency. The patient had stress echo sestamibi scheduled on 06/02/18 which turned out to be positive for inferolateral wall reversible ischemia. The patient has risk factors for coronary artery disease like family history of heart disease, poor treated dyslipidemia because of patient's inability to tolerate any medications and BMI morbid obesity range and hypertension. It is noted that patient's stress echo part was negative for ischemia but sestamibi showed inferolateral wall reversible ischemia. The patient was explained she needs further work up in a way of coronary angiogram. Dr. Duron was called and case discussed and the patient was accepted for further workup. The patient is also on Levaquin and Flagyl. She was supposed to be started on Levaquin 250mg PO for five days and Flagyl 500mg PO three times a days for 5 days. CONDITION: Stable. ADDENDUM: The patient has been unable to take any Statins and she has declined Repatha. TIME SPENT: More than 60 minutes. NEO
--- NOTE | 2018-06-03 12:02 | ECHOSTRESS ---
Date of Exam: 06/02/18 Ordering Physician: DR. THEODORE VICTORIA Reason for Echo: LVH, CHEST PAIN, SOB, STRESS TEST--NO ISCHEMIA M-Mode Normal Adult Results LV Dimensions Normal Adult Results AoV Opening excursions >1.6 LVEDD-base- 3.5-5.8 Ao root dimensions 2.0-3.7 LVESD-base- 3.1-4.6 L. Atrium dimensions 1.9-3.8 Post. Wall thickness 0.8-1.1 IV septum (thickness) 0.7-1.2 Post. Wall excursion 0.72-1.3 Septal motion Systolic motion R. Ventricular cavity 1.5-2.0 LVEF 60% Paradoxical septal wall motion 2-D: NORMAL LEFT VENTRICULAR CONTRACTILITY--RESTING AND POST EXERCISE M-MODE: MV: AV: TV: PV: CHAMBER SIZE: WALL MOTION: NORMAL LEFT VENTRICULAR CONTRACTILITY--RESTING AND POST EXERCISE PERICARDIUM: INTERPRETATION: 1. NORMAL LEFT VENTRICULAR CONTRACTILITY--RESTING AND POST EXERCISE MTDD
== END 2018-06-03 10:15 | disposition short-term general hospital (02) | DRG 391 ==
LOC: ED 16:03 → MEDSURG B 18:12
PROVIDERS: ADMIT Internal Medicine; ATTEND Internal Medicine
DX: R11.0 Nausea (principal); I21.19 ST elevation (STEMI) myocardial infarction involving other coronary artery of inferior wall; K57.92 Diverticulitis of intestine, part unspecified, without perforation or abscess without bleeding; I95.9 Hypotension, unspecified; I10 Essential (primary) hypertension; I51.7 Cardiomegaly; E66.9 Obesity, unspecified; E78.5 Hyperlipidemia, unspecified; E86.0 Dehydration; F41.9 Anxiety disorder, unspecified; G62.9 Polyneuropathy, unspecified; R53.1 Weakness; M54.40 Lumbago with sciatica, unspecified side; Z91.14 Patient's other noncompliance with medication regimen; Z68.37 Body mass index [BMI] 37.0-37.9, adult
CPT/HCPCS: 36415; 80053; 81001; 82150; 83690; 85025; 85651; 87086; 93005; 93010; 96374; 96375; 97802; 99284

== ENCOUNTER 2018-06-03 10:22 | Outpatient (CLI) | payer OTHER | END 2018-06-03 10:42 | disposition short-term general hospital (02) | LOC: AMBL 10:22 | PROVIDERS: ATTEND Emergency Medicine | DX: R94.39 Abnormal result of other cardiovascular function study (principal) ==

== ENCOUNTER 2019-02-04 14:24 | Outpatient (CLI) ==
--- NOTE | 2019-02-07 09:39 | MAMMO ---
EXAM: Bilateral digital screening mammogram (2-D and 3-D) History: Screening Comparison: Bilateral mammogram 01/28/2018 Findings: MLO and CC views of bilateral breasts demonstrate predominately fatty replaced breast pare nchyma. CAD was reviewed by the radiologist. Tomosynthesis was performed. Stable benign bilateral breast calcifications. There are no dominant masses, no suspicious microcalcifications and no liz ectural distortions Impression: Benign stable mammogram. Recommend followup routine screening mammography in 1 year. BI-RADS 2, benign
== END 2019-02-04 14:25 | disposition home or self-care (01) ==
LOC: RAD 14:24
PROVIDERS: ATTEND Internal Medicine
DX: Z12.31 Encounter for screening mammogram for malignant neoplasm of breast (principal)

== ENCOUNTER 2021-02-22 13:11 | Inpatient (IN) ==
[~2021-02-22 13:11] MED LIST: XANAX PO SCH
[2021-02-22 13:22] VITALS: BMI 33.4
--- NOTE | 2021-02-22 13:53 | ED.PDOC ---
General ED Provider: Dr. MARTHA YAO Chief Complaint: Abdominal Pain Stated Complaint: 65 year old female with c/o of progressive lower abdominal pain for the last few days. Denies fever, chills or sweats, pain worsens with po intake. Noted decrease in stool caliber and consistency. PMH + for divert icultis, cholecystectomy and hysterectomy. Still has her ovaries. Time Seen by Provider: 02/22/21 13:53 Mode of Arrival: Walk-In Information Source: Patient Exam Limitations: No limitations Primary Care Provider: THEODORE PEREZ Referred to ED by: PCP Seen Within Last 72 Hours for Same Complaint By: Clinic Nursing and Triage Documentation Reviewed and Agree: Yes Does patient meet sepsis criteria?: No System Inflammatory Response Syndrome: Not Applicable Sepsis Protocol: For patient's 13 years and over: Temp is 96.8 and below OR 101 and greater Pulse >90 BPM Resp >20/minute Acutely Altered Mental Status Are patient's symptoms suggestive of a new infection, such as: -Pneumonia -Skin, Soft Tissue -Endocarditis -UTI -Bone, Joint Infection -Implantable Device -Acute Abdominal Infection -Wound Infection -Meningitis -Blood Stream Catheter Infection -Unknown GI Complaint Exam Abdominal Pain Complaint/Exam Onset: Gradual Duration: progressively worse over the last few days Symptoms Are: Still present Timing: Constant Initial Severity: Mild Current Severity: Moderate Location of Pain: RLQ and LLQ Radiates To: Reports LLQ and RLQ Character: Reports Sharp, Aching and Throbbing Aggravating: Reports Movement Alleviating: Reports Rest and Position Associated Signs and Symptoms: Reports Diaphoresis, Dizziness, Constipation, Decreased urine output and Decreased appetite Related History: Reports Similar episode Abdominal Findings: Present Other (RLQ and suprapubic tenderness) Differential Diagnoses: Appendicitis, Bowel Obstruction and Diverticulitis Review of Systems Review Of Systems Constitutional: Reports No symptoms Eyes: Reports No symptoms Ears, Nose, Mouth, Throat: Reports No symptoms Respiratory: Reports No symptoms Cardiac: Reports No symptoms GI: Reports Abdominal pain, Constipated, Nausea and Poor fluid intake : Reports No symptoms Musculoskeletal: Reports No symptoms Skin: Reports No symptoms Neurological: Reports No symptoms Endocrine: Reports No symptoms Hematologic/Lymphatic: Reports No symptoms All Other Systems: Reviewed and Negative [facility] Medical History Anemia Arthritis Gastrointestinal problem Heart disease Hyperlipidemia Hypertension Stroke Thyroid disease Family History Mother Cardiac disease Hyperlipidemia Hypertension FATHER Cardiac disease Hypertension BROTHER Cardiac disease Hypertension Grandfather/Grandmother Cardiac disease Hypertension Grandfather/Grandmother No problems noted. Grandfather/Grandmother No problems noted. Social History History of recent travel: No Surgical History Cervical spine History of tubal ligation Status post angioplasty of vein Status post cholecystectomy Status post hysterectomy Female Reproductive History Menstrual Hx Hysterectomy: Yes Hx Tubal Ligation: No Physical Exam Physical Exam Appearance: Reports Well-appearing, Well-nourished and Obese Ill-appearing: Mild Pain Distress: Moderate Eyes: Reports PANCHITO, EOMI and Conjunctiva clear ENT: Reports Ears normal, Nose normal and Oropharynx normal Neck: Supple Respiratory: Reports Airway patent, Breath sounds clear, Breath sounds equal and Respirations nonlabored Cardiovascular: Reports RRR, Pulses normal, No rub and No murmur GI/: Reports Soft, No masses, Bowel sounds normal, No Organomegaly, Tender and Bowel sounds hypoactive Musculoskeletal: Reports Normal strength, ROM intact, No edema and No calf tenderness Skin: Reports Warm, Dry and Normal color Neurological: Reports Sensation intact, Motor intact, Reflexes intact, Cranial nerves intact, Alert and Oriented Psychiatric: Reports Affect appropriate and Mood appropriate Interpretation Radiology Interpretation Radiology Interpretation By: Radiologist Radiology Results: Positive (CT scan shows acute diverticulitis) Exam Interpreted: CXR and CT Scan Re-Evaluation Re-Evaluation Time of Re-Evaluation: 17:00 Status: Unchanged Vital Signs Stable: Yes Pain Level: 4 Appearance: NAD Lungs: Clear Skin: Warm and Dry Neuro: Alert and Oriented X3 CV: RRR Physician Notification Case Discussed Physician Notified: perez Time of Notification: 17:05 Admit/Transition Orders Entered by ED Provider: Yes Critical Care Note Critical Care Note Total Critical Care Time (mins): 0 Course Course Hematology/Chemistry: 02/22/21 14:40 02/22/21 14:40 Orders, Labs, Meds: Lab Review 02/22/21 02/22/21 02/22/21 14:40 14:40 15:20 WBC 10.46 H RBC 4.81 Hgb 15.4 Hct 43.4 MCV 90.2 MCH 32.0 H MCHC 35.5 H RDW Coeff of Mayra 12.4 Plt Count 203 Immature Gran % (Auto) 0.3 Neut % (Auto) 62.0 Lymph % (Auto) 27.2 [place] % (Auto) 9.3 Eos % (Auto) 0.7 Baso % (Auto) 0.5 Neut # (Auto) 6.5 Lymph # (Auto) 2.9 [place] # (Auto) 1.0 Eos # (Auto) 0.1 Baso # (Auto) 0.1 Immature Gran # (Auto) 0.0 Sodium 138.2 Potassium 3.57 Chloride 104.0 Carbon Dioxide 26.1 Anion Gap 11.67 BUN 13.2 Creatinine 1.10 Estimated GFR (MDRD) 50.00 BUN/Creatinine Ratio 12.00 Glucose 117.1 H Calcium 9.09 Total Bilirubin 1.40 H AST 42.4 H ALT 40.1 H Alkaline Phosphatase 48.0 L Total Protein 7.54 Albumin 4.17 Globulin 3.37 Albumin/Globulin Ratio 1.23 Amylase 61.4 Lipase 103.3 Urine Color Yellow Urine Clarity Clear Urine pH 7.0 Ur Specific [place] 1.015 Urine Protein Negative Urine Glucose (UA) Negative Urine Ketones Negative Urine Blood Negative Urine Nitrite Negative Urine Bilirubin Negative Urine Urobilinogen 0.2 Ur Leukocyte Esterase Negative Orders Category Date Time Status NPO REMINDER: IMAGING ONCE CARE 02/22/21 14:23 Completed AMYLASE Stat LAB 02/22/21 14:40 Completed CBC W/ AUTO DIFF Stat LAB 02/22/21 14:40 Completed COMPREHENSIVE METABOLIC PANEL Stat LAB 02/22/21 14:40 Completed LIPASE Stat LAB 02/22/21 14:40 Completed URINALYSIS C & S IF INDICATED Stat LAB 02/22/21 15:20 Completed Morphine Sulfate [Morphine 2 mg/ml Syringe] MEDS 02/22/21 14:23 Discontinued 2 mg IVP ONCE STA Ondansetron HCl/Pf [Zofran 4 mg/2 ml] MEDS 02/22/21 14:23 Discontinued 4 mg IVP ONCE STA Ringers Lactated Solution [Lactated Ringers] 1,000 ml MEDS 02/22/21 14:[address] ABDOMEN/PELVIS W/WO CONTRAS Stat RADS 02/22/21 14:23 Completed Medications Discontinued Medications Generic Name Dose Route Start Last Admin Trade Name Freq PRN Reason Stop Dose Admin Lactated Ringer's 1,000 mls @ 1,000 mls/hr 02/22/21 14:23 02/22/21 15:13 Lactated Ringers IV 02/22/21 15:22 1,000 mls/hr BOLUS STA Administration Morphine Sulfate 2 mg 02/22/21 14:23 02/22/21 15:14 Morphine Sulfate 2 Mg/Ml Syringe IVP 02/22/21 14:24 2 mg ONCE STA Administration Ondansetron HCl 4 mg 02/22/21 14:23 02/22/21 15:14 Ondansetron Hcl/Pf 4 Mg/2 Ml Sdv IVP 02/22/21 14:24 4 [place] [address] Diagnostic ImagingCT Report : [id number] Patient: MOHINI TOROAcct:[id number] Record: [id number]: 1955Loc: EDRoom/Bed:Age/Sex: 65 / FADM Status: REG ERDate of Service: 02/22/21 Ordering Physician: MARTHA YAO MD Procedure(s): CT ABDOMEN/PELVIS W/WO CONTRAS Report Number(s): [id number] Accession Number(s): [id number] cc: MARTHA YAO MD; THEODORE PEREZ MD EXAM: CT abdomen with and without contrast. CT pelvis with and without contrast. HISTORY: Abdominal pain. COMPARISON: 06/02/2018. TECHNIQUE: Multiple axial images of the abdomen and pelvis were obtained prior to and following intravenous administration of 75 mL Visipaque 320, low osmolar. Images reformatted in the sagittal and coronal plane. FINDINGS: Lung bases are clear. Left hip arthroplasty and L4-5 posterior lumbar interbody fusion changes noted. No acute osseous abnormality is detected. The liver is enlarged and low density. Gallbladder absent. Pancreas, spleen, adrenal are normal. No calcified renal stones or hydronephrosis detected. Kidneys demonstrate symmetric enhancement. Possible small sliding hiatal hernia. There is wall thickening of the distal sigmoid colon centered around a diverticulum. There is adjacent edema. There is no perforation, abscess or bowel obstruction. The appendix is normal. The uterus not seen. Bladder not well characterized due to beam hardening artifact from the left hip arthroplasty hardware. There is a small amount of free pelvic fluid. Atherosclerotic calcifications present without aneurysm. No lymphadenopathy detected. IMPRESSION: 1. Acute sigmoid diverticulitis. Small amount of free fluid is likely due to this. No perforation or abscess. 2. Hepatomegaly with fatty infiltration. All CT scans are performed using dose optimization techniques as appropriate to the performed exam and include at least one of the following: Automated exposure control, adjustment of the mA and/or kV according to size, and the use of iterative reconstruction technique. Dictated By:JERRY CLARKigned By:PANKAJ CLARKINDictated Date/Time: 02/22/21 1537Transcribed Date/Time: 02/22/21 1537 Signed Date/Time: 02/22/21 1546 Vital Signs: Temp Pulse Resp BP Pulse Ox 02/22/21 13:11 98.0 F 100 H 16 153/136 H 100 Discharge Plan Discharge Patient Disposition: ADMITTED INPATIENT Discharge Problem: Acute diverticulitis of intestine Prescriptions: No Action furosemide [Lasix] 40 MG tablet 40 mg PO DAILY RF: 0 doxepin 10 MG capsule 10 mg PO BEDTIME RF: 0 alprazolam [Xanax] 0.5 MG tablet 1 mg PO DAILY RF: 0 trazodone 100 MG tablet 200 mg PO BEDTIME RF: 0 alprazolam [Xanax] 2 MG tablet 4 mg PO BEDTIME RF: 0 Klor-Con M15 15 MEQ tablet,ER particles/crystals 30 meq PO DAILY RF: 0 Centrum Silver 1 EACH tablet 1 tab PO DAILY RF: 0 magnesium oxide 400 MG tablet 400 mg PO BEDTIME RF: 0 bisoprolol fumarate 5 mg tablet 5 mg PO BID RF: 0 vitamin B complex [Super B Complex] Capsule 1 cap PO DAILY RF: 0 calcium citrate 1,000 mg Tablet 1,000 mg PO DAILY RF: 0 Viibryd 40 mg Tablet 40 mg PO DAILY RF: 0 Eliquis 5 mg tablet 5 mg PO BID RF: 0 Repatha SureClick 140 mg/mL pen injector 140 mg SUBCUT EVERY OTHER WEEK RF: 0 losartan 50 MG tablet 100 mg PO DAILY RF: 0 cholecalciferol (vitamin D3) 5,000 UNIT tablet 10,000 unit PO DAILY RF: 0 ED Provider: MARTHA YAO Condition: Fair Physician Progress Note: 65 year old female with c/o progressive RLQ and suprapubic abdominal pain getting worse over the last few days. Has been on special diet for possible bariatric surgery. CT scan and ED workup shows acute diverticulitis. Discussed with Dr. Perez. Will admit for IV antibiotics.
[2021-02-22] MEDS ORDERED: ZOFRAN 4 MG/2 ML IVP STA (14:23)
[2021-02-22] MEDS ORDERED: MORPHINE 2 MG/ML SYRINGE IVP STA ×2 (14:23→17:38)
[2021-02-22] MEDS ORDERED: LACTATED RINGERS 1,000 ML IV STA (14:23)
[2021-02-22 14:44] LABS: BASOPHILS # (AUTO) 0.1 K/uL (0-0.2); BASOPHILS % (AUTO) 0.5 % (0.0-3.0); EOSINOPHILS # (AUTO) 0.1 K/ul (0.0-0.7); EOSINOPHILS % (AUTO) 0.7 % (0.0-7.0); HEMATOCRIT 43.4 % (37.0-47.0); HEMOGLOBIN 15.4 g/dl (12.0-16.0); IMMATURE GRANULOCYTE % (AUTO) 0.3 % (0.0-5.0); LYMPHOCYTES # (AUTO) 2.9 K/uL (0.60-3.4); LYMPHOCYTES % (AUTO) 27.2 (10.0-50.0); MEAN CORPUSCULAR HGB CONC 35.5 (31.8-35.4); MEAN CORPUSCULAR VOLUME 90.2 fl (81.0-99.0); MONOCYTES % (AUTO) 9.3 (0-10); NEUTROPHILS # (AUTO) 6.5 K/ul (2.0-6.9); PLATELET COUNT 203 10^3/uL (140-440); RDW COEFFICIENT OF VARIATION 12.4 % (11.6-14.8); RED BLOOD COUNT 4.81 10^6/ul (4.20-5.40); WHITE BLOOD COUNT 10.46 K/ul (4.6-10.2)
[2021-02-22 14:56] LABS: ALANINE AMINOTRANSFERASE 40.1 U/L (0-35); ALBUMIN 4.17 g/dL (3.5-5.0); AMYLASE 61.4 U/L (30-110); ASPARTATE AMINO TRANSFERASE 42.4 U/L (14-36); BILIRUBIN,TOTAL 1.4 mg/dL (0.2-1.3); BLOOD UREA NITROGEN 13.2 mg/dL (7-17); CALCIUM 9.09 mg/dL (8.4-10.2); CARBON DIOXIDE 26.1 mmol/L (22-30.0); CREATININE 1.1 mg/dL (0.60-1.30); GLUCOSE 117.1 mg/dL (74-106); LIPASE 103.3 U/L (23-300); POTASSIUM 3.57 mmol/L (3.5-5.1); SODIUM 138.2 mmol/L (134.5-145); TOTAL PROTEIN 7.54 g/dL (6.3-8.2)
[2021-02-22 15:26] LABS: BILIRUBIN,URINE Negative (NEGATIVE); CLARITY,URINE Clear (CLEAR); COLOR,URINE Yellow (YELLOW); GLUCOSE, URINE (UA) Negative (NEGATIVE); KETONES,URINE Negative (NEGATIVE); LEUKOCYTE ESTERASE ,URINE Negative (NEGATIVE); NITRITE,URINE Negative (NEGATIVE); PROTEIN,URINE Negative (NEGATIVE); URINE, BLOOD Negative (NEGATIVE); UROBILINOGEN,URINE 0.2 (0.2)
--- NOTE | 2021-02-22 15:46 | CT ---
EXAM: CT abdomen with and without contrast. CT pelvis with and without contrast. HISTORY: Abdominal pain. COMPARISON: 06/02/2018. TECHNIQUE: Multiple axial images of the abdomen and pelvis were obtained prior to and following intr avenous administration of 75 mL Visipaque 320, low osmolar. Images reformatted in the sagittal and c oronal plane. FINDINGS: Lung bases are clear. Left hip arthroplasty and L4-5 posterior lumbar interbody fusion changes noted. No acute osseous abn ormality is detected. The liver is enlarged and low density. Gallbladder absent. Pancreas, spleen, adrenal are normal. No calcified renal stones or hydronephrosis detected. Kidneys demonstrate symmetric enhancement. Possible small sliding hiatal hernia. There is wall thickening of the distal sigmoid colon centered around a diverticulum. There is adjacent edema. There is no perforation, abscess or bowel obstructi on. The appendix is normal. The uterus not seen. Bladder not well characterized due to beam hardening artifact from the left hip arthroplasty hardware. There is a small amount of free pelvic fluid. Atherosclerotic calcifications present without aneurysm. No lymphadenopathy detected. IMPRESSION: 1. Acute sigmoid diverticulitis. Small amount of free fluid is likely due to this. No perforation or abscess. 2. Hepatomegaly with fatty infiltration. All CT scans are performed using dose optimization techniques as appropriate to the performed exam an d include at least one of the following: Automated exposure control, adjustment of the mA and/or kV according t o size, and the use of iterative reconstruction technique.
[2021-02-22] MEDS ORDERED: CIPRO 400 MG/200 ML D5W 400 MG/200 ML BAG IV ONE (17:36)
[2021-02-22] MEDS ORDERED: NITROSTAT SL PRN (17:41)
[2021-02-22] MEDS ORDERED: ATROPINE SULFATE PFS IVP PRN (17:41)
[2021-02-22 17:47] LABS: BORDETELLA PARAPERTUSSIS (PCR) NOT DETECTED (NOT DETECT); BORDETELLA PERTUSSIS (PCR) NOT DETECTED (NOT DETECT); CHLAMYDIA PNEUMONIAE (PCR) NOT DETECTED (NOT DETECT); CORONAVIRUS 229E (PCR) NOT DETECTED (NOT DETECT); CORONAVIRUS HKU1 (PCR) NOT DETECTED (NOT DETECT); CORONAVIRUS NL63 (PCR) NOT DETECTED (NOT DETECT); CORONAVIRUS OC43 (PCR) NOT DETECTED (NOT DETECT); HUMAN METAPNEUMOVIRUS (PCR) NOT DETECTED (NOT DETECT); HUMAN RHINOVIRUS/ENTEROV (PCR) NOT DETECTED (NOT DETECT); INFLUENZA B (PCR) NOT DETECTED (NOT DETECT); MYCOPLASMA PNEUMONIAE (PCR) NOT DETECTED (NOT DETECT); PARAINFLUENZA VIRUS 1 (PCR) NOT DETECTED (NOT DETECT); PARAINFLUENZA VIRUS 2 (PCR) NOT DETECTED (NOT DETECT); PARAINFLUENZA VIRUS 3 (PCR) NOT DETECTED (NOT DETECT); PARAINFLUENZA VIRUS 4 (PCR) NOT DETECTED (NOT DETECT); RESPIRATORY SYNCYTIAL V (PCR) NOT DETECTED (NOT DETECT); SARS_COV_2 (PCR) NOT DETECTED (NOT DETECT)
[2021-02-22] MEDS: FLAGYL 500 MG/100 ML 500 MG/100 ML BAG IV SCH ×2 (18:09→21:47)
[2021-02-22 18:23] LABS: CREATINE KINASE 181.9 U/L (30-135)
[2021-02-22 18:38] LABS: TROPONIN I < 0.012 ng/ml (0.0000-0.120)
[2021-02-22 18:41] LABS: ADENOVIRUS (PCR) NOT DETECTED (NOT DETECT)
[2021-02-22] MEDS: SODIUM CHLORIDE 1,000 ML IV SCH (20:01)
[2021-02-22] MEDS ORDERED: XANAX PO SCH ×2 (21:00→23:00)
[2021-02-22] MEDS: MORPHINE 2 MG/ML SYRINGE IVP PRN (21:54)
[2021-02-22] MEDS ORDERED: ZOFRAN 4 MG/2 ML IVP PRN (22:01)
[2021-02-22] MEDS: ZEBETA PO SCH (22:35)
[2021-02-22] MEDS: DESYREL PO SCH (22:35)
[2021-02-22] MEDS: ELIQUIS PO SCH (22:36)
[2021-02-22] MEDS: MAG-OX PO SCH (22:38)
[2021-02-23] MEDS: MORPHINE 2 MG/ML SYRINGE IVP PRN ×5 (02:32→21:06)
[2021-02-23 03:10] LABS: BASOPHILS # (AUTO) 0.1 K/uL (0-0.2); BASOPHILS % (AUTO) 0.6 % (0.0-3.0); EOSINOPHILS # (AUTO) 0.1 K/ul (0.0-0.7); EOSINOPHILS % (AUTO) 1.2 % (0.0-7.0); HEMATOCRIT 37.2 % (37.0-47.0); HEMOGLOBIN 13.1 g/dl (12.0-16.0); IMMATURE GRANULOCYTE % (AUTO) 0.2 % (0.0-5.0); LYMPHOCYTES # (AUTO) 2.9 K/uL (0.60-3.4); LYMPHOCYTES % (AUTO) 28.5 (10.0-50.0); MEAN CORPUSCULAR HEMOGLOBIN 31.6 pg (27.0-31.0); MEAN CORPUSCULAR HGB CONC 35.2 (31.8-35.4); MEAN CORPUSCULAR VOLUME 89.6 fl (81.0-99.0); MONOCYTES # (AUTO) 1.1 K/uL (0.4-2.0); MONOCYTES % (AUTO) 10.6 (0-10); NEUTROPHILS # (AUTO) 6.1 K/ul (2.0-6.9); NEUTROPHILS % (AUTO) 58.9 % (42.2-75.2); PLATELET COUNT 206 10^3/uL (140-440); RDW COEFFICIENT OF VARIATION 12.3 % (11.6-14.8); RED BLOOD COUNT 4.15 10^6/ul (4.20-5.40); WHITE BLOOD COUNT 10.26 K/ul (4.6-10.2)
[2021-02-23 03:22] LABS: CREATINE KINASE 188.5 U/L (30-135)
[2021-02-23 03:36] LABS: TROPONIN I < 0.012 ng/ml (0.0000-0.120)
[2021-02-23 03:37] LABS: ALANINE AMINOTRANSFERASE 34.9 U/L (0-35); ALBUMIN 3.33 g/dL (3.5-5.0); ASPARTATE AMINO TRANSFERASE 37.6 U/L (14-36); BILIRUBIN,TOTAL 1.12 mg/dL (0.2-1.3); BLOOD UREA NITROGEN 11.9 mg/dL (7-17); CALCIUM 8.32 mg/dL (8.4-10.2); CARBON DIOXIDE 25.4 mmol/L (22-30.0); CHLORIDE 107.1 mmol/L (98-107); CREATININE 0.99 mg/dL (0.60-1.30); GLUCOSE 112.3 mg/dL (74-106); POTASSIUM 3.94 mmol/L (3.5-5.1); TOTAL PROTEIN 6.12 g/dL (6.3-8.2)
[2021-02-23 03:56] LABS: CREATINE KINASE MB 0.595 ng/ml (0.0-2.38)
[2021-02-23] MEDS: FLAGYL 500 MG/100 ML 500 MG/100 ML BAG IV SCH ×3 (05:28→20:20)
[2021-02-23] MEDS ORDERED: NON-FORMULARY MEDICATION (Evolocumab [Repatha Sureclick] 140 mg/mL pen injector) SUBCUT SCH (07:45)
[2021-02-23] MEDS ORDERED: CALCIUM 500 + VIT D 5 MCG (200 IU) TABLET PO SCH (09:00)
[2021-02-23] MEDS ORDERED: VITAMIN D PO SCH (09:00)
[2021-02-23] MEDS ORDERED: CALCIUM CITRATE 1000 MG PO SCH (09:00)
[2021-02-23] MEDS ORDERED: MULTIVIT MIN FA LYCOPEN LUTEIN PO SCH (09:00)
[2021-02-23] MEDS ORDERED: VITAMIN B-12 IM SCH (09:00)
[2021-02-23] MEDS ORDERED: COZAAR PO SCH ×2 (09:00)
--- NOTE | 2021-02-23 09:20 | DI ---
EXAM: Chest two-view. HISTORY: Short of breath. COMPARISON: None. FINDINGS: The lungs are clear with scattered calcified granulomas. The cardiac silhouette is fernando l in size. There is no pulmonary edema present. There is no pleural effusion identified. There is no acute osseous abnormality. IMPRESSION: No acute cardiopulmonary process.
[2021-02-23] MEDS: K-DUR PO SCH ×2 (10:05→17:58)
[2021-02-23] MEDS: CALCIUM 500 + VIT D 5 MCG (200 IU) TABLET PO SCH (10:05)
[2021-02-23] MEDS: ELIQUIS PO SCH ×2 (10:05→20:17)
[2021-02-23] MEDS: MULTIVITAMIN TABLET PO SCH (10:06)
[2021-02-23] MEDS: LASIX TAB PO SCH (10:22)
[2021-02-23] MEDS: POTASSIUM CHLORIDE PO SCH (10:23)
[2021-02-23] MEDS: [UNRECOGNIZED DRUG - OTHER] PO SCH (10:23)
[2021-02-23] MEDS: NON-FORMULARY MEDICATION (Vitamin B Complex Capsule) PO SCH (10:24)
[2021-02-23] MEDS: ZEBETA PO SCH ×3 (10:24→20:16)
[2021-02-23] MEDS: XANAX PO SCH (10:33)
[2021-02-23] MEDS: SODIUM CHLORIDE 1,000 ML IV SCH (10:38)
[2021-02-23] MEDS: VILAZODONE 40 MG PO SCH (11:47)
[2021-02-23] MEDS: CIPRO PO SCH ×2 (14:13→20:16)
[2021-02-23] MEDS: DESYREL PO SCH (20:16)
[2021-02-23] MEDS: MAG-OX PO SCH (20:17)
[2021-02-23] MEDS: DOXEPIN 10 MG PO SCH (20:45)
[2021-02-23] MEDS ORDERED: XANAX PO SCH (21:00)
[2021-02-23] MEDS ORDERED: DESYREL PO SCH (21:00)
[2021-02-23] MEDS ORDERED: MAG-OX PO SCH (21:00)
[2021-02-24] MEDS: SODIUM CHLORIDE 1,000 ML IV SCH ×2 (01:29→17:21)
[2021-02-24] MEDS: MORPHINE 2 MG/ML SYRINGE IVP PRN ×4 (04:10→21:01)
[2021-02-24 05:13] LABS: BASOPHILS # (AUTO) 0.1 K/uL (0-0.2); BASOPHILS % (AUTO) 0.7 % (0.0-3.0); EOSINOPHILS # (AUTO) 0.2 K/ul (0.0-0.7); EOSINOPHILS % (AUTO) 2.1 % (0.0-7.0); HEMATOCRIT 34.3 % (37.0-47.0); IMMATURE GRANULOCYTE % (AUTO) 0.1 % (0.0-5.0); LYMPHOCYTES # (AUTO) 2.6 K/uL (0.60-3.4); LYMPHOCYTES % (AUTO) 34.7 (10.0-50.0); MEAN CORPUSCULAR HEMOGLOBIN 31.6 pg (27.0-31.0); MEAN CORPUSCULAR VOLUME 90.3 fl (81.0-99.0); MONOCYTES # (AUTO) 0.7 K/uL (0.4-2.0); MONOCYTES % (AUTO) 8.9 (0-10); NEUTROPHILS % (AUTO) 53.5 % (42.2-75.2); PLATELET COUNT 205 10^3/uL (140-440); RDW COEFFICIENT OF VARIATION 12.2 % (11.6-14.8); WHITE BLOOD COUNT 7.55 K/ul (4.6-10.2)
[2021-02-24 05:26] LABS: ALANINE AMINOTRANSFERASE 28.8 U/L (0-35); ALBUMIN 3.19 g/dL (3.5-5.0); ASPARTATE AMINO TRANSFERASE 33.5 U/L (14-36); BILIRUBIN,TOTAL 0.88 mg/dL (0.2-1.3); BLOOD UREA NITROGEN 12.2 mg/dL (7-17); CALCIUM 7.89 mg/dL (8.4-10.2); CARBON DIOXIDE 22.8 mmol/L (22-30.0); CHLORIDE 110.5 mmol/L (98-107); CREATININE 0.99 mg/dL (0.60-1.30); GLUCOSE 92.2 mg/dL (74-106); POTASSIUM 3.97 mmol/L (3.5-5.1); SODIUM 138.6 mmol/L (134.5-145); TOTAL PROTEIN 5.97 g/dL (6.3-8.2)
[2021-02-24] MEDS: FLAGYL 500 MG/100 ML 500 MG/100 ML BAG IV SCH ×3 (05:29→20:36)
[2021-02-24] MEDS: CIPRO PO SCH ×2 (05:42→20:37)
[2021-02-24] MEDS: LASIX TAB PO SCH (05:43)
[2021-02-24] MEDS: ZEBETA PO SCH ×2 (08:25→20:37)
[2021-02-24] MEDS: ELIQUIS PO SCH ×2 (08:26→20:38)
[2021-02-24] MEDS: CALCIUM 500 + VIT D 5 MCG (200 IU) TABLET PO SCH (08:27)
[2021-02-24] MEDS: K-DUR PO SCH ×2 (08:28→16:31)
[2021-02-24] MEDS: XANAX PO SCH (08:28)
[2021-02-24] MEDS: MULTIVITAMIN TABLET PO SCH (08:29)
[2021-02-24] MEDS: VILAZODONE 40 MG PO SCH (08:29)
[2021-02-24] MEDS: NON-FORMULARY MEDICATION (Vitamin B Complex Capsule) PO SCH (08:30)
[2021-02-24] MEDS: [UNRECOGNIZED DRUG - OTHER] PO SCH (08:31)
[2021-02-24] MEDS: POTASSIUM CHLORIDE PO SCH (08:31)
[2021-02-24 15:54] LABS: BILIRUBIN,URINE Negative (NEGATIVE); CLARITY,URINE Clear (CLEAR); COLOR,URINE Yellow (YELLOW); GLUCOSE, URINE (UA) Negative (NEGATIVE); KETONES,URINE 2+ (NEGATIVE); LEUKOCYTE ESTERASE ,URINE Trace (NEGATIVE); NITRITE,URINE Negative (NEGATIVE); PH,URINE 5.5 (5-9); PROTEIN,URINE Negative (NEGATIVE); URINE, BLOOD Negative (NEGATIVE); UROBILINOGEN,URINE 0.2 (0.2)
[2021-02-24 15:57] LABS: AMORPHOUS SEDIMENT,UR TRACE (NOT PRESENT); BACTERIA,URINE TRACE (NOT PRESENT); MUCUS,URINE TRACE (NOT PRESENT); SQUAMOUS EPITHELIAL CELL,UR 0-2 (0-5); URINE RBC, MICROSCOPIC 0-2 (0-2)
[2021-02-24] MEDS: DESYREL PO SCH (20:37)
[2021-02-24] MEDS: MAG-OX PO SCH (20:37)
[2021-02-24] MEDS: ALPRAZOLAM 2 MG PO SCH (20:37)
[2021-02-24] MEDS: DOXEPIN 10 MG PO SCH (20:38)
[2021-02-25] MEDS: MORPHINE 2 MG/ML SYRINGE IVP PRN ×4 (00:42→20:36)
[2021-02-25] MEDS: FLAGYL 500 MG/100 ML 500 MG/100 ML BAG IV SCH ×3 (04:54→20:24)
[2021-02-25 05:18] LABS: BASOPHILS # (AUTO) 0.1 K/uL (0-0.2); BASOPHILS % (AUTO) 1.2 % (0.0-3.0); EOSINOPHILS # (AUTO) 0.2 K/ul (0.0-0.7); EOSINOPHILS % (AUTO) 3.5 % (0.0-7.0); HEMATOCRIT 34.5 % (37.0-47.0); HEMOGLOBIN 11.8 g/dl (12.0-16.0); IMMATURE GRANULOCYTE % (AUTO) 0.2 % (0.0-5.0); LYMPHOCYTES # (AUTO) 2.6 K/uL (0.60-3.4); LYMPHOCYTES % (AUTO) 45.6 (10.0-50.0); MEAN CORPUSCULAR HEMOGLOBIN 31.4 pg (27.0-31.0); MEAN CORPUSCULAR HGB CONC 34.2 (31.8-35.4); MEAN CORPUSCULAR VOLUME 91.8 fl (81.0-99.0); MONOCYTES # (AUTO) 0.6 K/uL (0.4-2.0); MONOCYTES % (AUTO) 9.6 (0-10); NEUTROPHILS # (AUTO) 2.3 K/ul (2.0-6.9); NEUTROPHILS % (AUTO) 39.9 % (42.2-75.2); PLATELET COUNT 231 10^3/uL (140-440); RDW COEFFICIENT OF VARIATION 12.2 % (11.6-14.8); RED BLOOD COUNT 3.76 10^6/ul (4.20-5.40)
[2021-02-25 05:34] LABS: ALANINE AMINOTRANSFERASE 23.6 U/L (0-35); ALBUMIN 3.1 g/dL (3.5-5.0); ALKALINE PHOSPHATASE 36.8 U/L (53-141); ASPARTATE AMINO TRANSFERASE 32.4 U/L (14-36); BILIRUBIN,TOTAL 0.63 mg/dL (0.2-1.3); BLOOD UREA NITROGEN 11.8 mg/dL (7-17); CALCIUM 7.69 mg/dL (8.4-10.2); CARBON DIOXIDE 21.2 mmol/L (22-30.0); CHLORIDE 111.7 mmol/L (98-107); CREATININE 0.87 mg/dL (0.60-1.30); GLUCOSE 79.4 mg/dL (74-106); POTASSIUM 4.15 mmol/L (3.5-5.1); SODIUM 140.8 mmol/L (134.5-145); TOTAL PROTEIN 5.88 g/dL (6.3-8.2)
[2021-02-25] MEDS: LASIX TAB PO SCH (05:47)
[2021-02-25] MEDS: SODIUM CHLORIDE 1,000 ML IV SCH ×3 (05:47→18:32)
[2021-02-25] MEDS: CIPRO PO SCH ×2 (05:47→20:21)
--- NOTE | 2021-02-25 07:14 | CT ---
EXAM: CT abdomen pelvis without intravenous contrast 02/25/2021. Sagittal and coronal reformatted i mages obtained HISTORY: Abdominal pain COMPARISON: 02/22/2021 FINDINGS: Hepatic steatosis. Status post cholecystectomy. The adrenal glands show no acute process . Striated appearance of the right and left kidney with contrast retention. This may relate to acut e tubular necrosis. There is no urinary obstruction. The spleen and pancreas show no acute abnormality. There is no evidence of bowel obstruction. Mucos al thickening of the sigmoid colon with surrounding inflammatory stranding / edema. This may represe nt persistent acute diverticulitis. Colitis could give a similar appearance. There is no free air, free fluid or abscess. Air-fluid levels throughout small bowel and colon which may relate to ileus/diarrhea. Posterior fusion at L4-L5. No acute osseous abnormality. IMPRESSION: 1. Persistent inflammatory change of the colon. This likely represents acute sigmoid diverticulitis . Colitis could give a similar appearance. Inflammatory change appears similar to the prior CT. 2. Hepatic steatosis post cholecystectomy. 3. Striated appearance within the right left kidney with contrast retention. This may relate to acu te tubular necrosis. No urinary obstruction. Clinical correlation advised. 4. Air-fluid levels throughout small bowel and colon. This may relate to ileus/diarrhea. All CT scans are performed using dose optimization techniques as appropriate to the performed exam an d include at least one of the following: Automated exposure control, adjustment of the mA and/or kV according t o size, and the use of iterative reconstruction technique.
[2021-02-25] MEDS: K-DUR PO SCH (09:09)
[2021-02-25] MEDS: ELIQUIS PO SCH ×2 (09:13→20:25)
[2021-02-25] MEDS: XANAX PO SCH (09:13)
[2021-02-25] MEDS: MULTIVITAMIN TABLET PO SCH (09:13)
[2021-02-25] MEDS: CALCIUM 500 + VIT D 5 MCG (200 IU) TABLET PO SCH (09:13)
[2021-02-25] MEDS: ZEBETA PO SCH ×2 (09:14→20:21)
[2021-02-25] MEDS: VILAZODONE 40 MG PO SCH (09:14)
[2021-02-25] MEDS: NON-FORMULARY MEDICATION (Vitamin B Complex Capsule) PO SCH (09:14)
[2021-02-25] MEDS: POTASSIUM CHLORIDE PO SCH (10:23)
[2021-02-25] MEDS: [UNRECOGNIZED DRUG - OTHER] PO SCH (10:23)
--- NOTE | 2021-02-25 10:24 | PCM.PROG ---
Attending Provider: ATTENDING PROVIDER: Dr. THEODORE VICTORIA This patient is seen with Hanane Newton, Nurse Practitioner. DATE OF SERVICE: 02/25/21 SUBJECTIVE: This 65 year old /WHITE F was hospitalized 02/22/21. The patient is still complaining of pain. Repeat CT of abdomen showed some improvement in inflammation. No diarrhea. No fever. Still asking for pain medications every 4 hours. REVIEW OF SYSTEMS: CONSTITUTIONAL: No night sweats. No fatigue, malaise, lethargy. No fever or chills. HEENT: Eyes: No visual changes. No eye pain. No eye discharge. ENT: No runny nose. No epistaxis. No sinus pain. No odynophagia. No congestion. RESPIRATORY: No cough, no congestion. No hemoptysis. No shortness of breath. CARDIOVASCULAR: No angina symptoms. No CHF symptoms. No atypical chest pain for CAD. No palpitations. No orthopnea.. GASTROINTESTINAL: Abdominal pain. No nausea or vomiting. No diarrhea or constipation. No hematemesis. No hematochezia. GENITOURINARY: No urgency. No frequency. No dysuria. No hematuria. No obstructive symptoms. No discharge. No pain. No significant abnormal bleeding. MUSCULOSKELETAL: No musculoskeletal pain; no joint swelling. NEUROLOGICAL: Awake, alert, oriented to time, place and person. No headache. No neck pain. No syncope. No seizures. No dizziness. PSYCHIATRIC: Not anxious. No depression. No suicidal thoughts. No homicidal thoughts. SKIN: No rash. No lesions. No wounds. ENDOCRINE: No unexplained weight loss. No weight gain. HEMATOLOGIC/LYMPHATIC: No anemia. No purpura. No petechiae. No prolonged or excessive bleeding. No palpable lymph nodes. PHYSICAL EXAMINATION: GENERAL: The patient is awake, alert and oriented, lying in bed in no distress. VITAL SIGNS: Temperature 98.2 F, Pulse 58, Respiratory Rate 18, BP 118/70, Pulse Ox 96% HEENT: Head normocephalic, atraumatic. Eyes: Extraocular muscles are intact. Pupils are equal, round and reactive to light and accommodation. Ears: No lesions. Nose appeared normal. Throat: No exudate or erythema. NECK: Supple. No JVD, no carotid bruit. No lymphadenopathy or thyromegaly. LUNGS: Diminished breath sounds. Clear to auscultation. Percussion note normal. Chest symmetrical. HEART: S1, S2, no S3. No murmurs. Irregular heart rate. No cyanosis or clubbing. No ascites. Pulses: Dorsalis pedis and posterior tibial pulses +1 to +2 both sides. ABDOMEN: Soft. Defused abdominal pain. Bowel sounds active. No CVA tenderness. No mass felt. EXTREMITIES: No edema. Full range of motion of all extremities, equal. NEUROLOGIC: No focal deficit. Cranial nerves II through XII are grossly intact. No headache. No double vision. SKIN: Not dry. Intact. Turgor-normal. LYMPHATIC: No palpable lymph nodes/no lymphedema. MUSCULOSKELETAL: Normal joints with no swelling. Muscle tone is normal. LAB REVIEW: 02/25/21 05:11 02/25/21 05:11 02/25/21 05:11: Sodium 140.8, Potassium 4.15, Chloride 111.7 H, Carbon Dioxide 21.2 L, Anion Gap 12.05, BUN 11.8, Creatinine 0.87, Estimated GFR (MDRD) 66.00, BUN/Creatinine Ratio 13.56, Glucose 79.4, Calcium 7.69 L, Total Bilirubin 0.63, AST 32.4, ALT 23.6, Alkaline Phosphatase 36.8 L, Total Protein 5.88 L, Albumin 3.10 L, Globulin 2.78, Albumin/Globulin Ratio 1.11 02/25/21 05:11: WBC 5.70, RBC 3.76 L, Hgb 11.8 L, Hct 34.5 L, MCV 91.8, MCH 31.4 H, MCHC 34.2, RDW Coeff of Mayra 12.2, Plt Count 231, Immature Gran % (Auto) 0.2, Neut % (Auto) 39.9 L, Lymph % (Auto) 45.6, [place] % (Auto) 9.6, Eos % (Auto) 3.5, Baso % (Auto) 1.2, Neut # (Auto) 2.3, Lymph # (Auto) 2.6, [place] # (Auto) 0.6, Eos # (Auto) 0.2, Baso # (Auto) 0.1, Immature Gran # (Auto) 0.0 02/24/21 15:35: Urine Color Yellow, Urine Clarity Clear, Urine pH 5.5, Ur Specific [place] >=1.030, Urine Protein Negative, Urine Glucose (UA) Negative, Urine Ketones 2+ H, Urine Blood Negative, Urine Nitrite Negative, Urine Bilirubin Negative, Urine Urobilinogen 0.2, Ur Leukocyte Esterase Trace H, Urine Microscopic RBC 0-2, Urine Microscopic WBC 2-5, Ur Squamous Epith Cells 0-2, Amorphous Sediment Trace, Urine Bacteria Trace, Urine Mucus Trace ASSESSMENT: Please see below. 1. Acute sigmoid diverticulitis 3. History of atrial fibrillation 3. Obesity PLAN: 1. Continue IV fluids 2. Will Continue Cipro and Flagyl. Plan and coordination of the patient's care discussed in the presence of Jewelry Bench Molder and nurse. SCRIBED BY: HORTENCIA STROUD Pairing Machine Operator scribed while in presence of service performed by Dr. Victoria/Hanane Newton APRN on 02/25/21 ([id number])
--- NOTE | 2021-02-25 12:03 | PN ---
DATE OF SERVICE: 02/22/21 SUBJECTIVE: The patient was seen today in Room 106. The patient was hospitalized with acute sigmoid diverticulitis. The patient has intermittent pain ranging from 8 to 9 on a scale of 1 to 10. She is going to be given Morphine Sulfate 2 to 3 mg every 4 hourly. I examined the patient and the patient was talkative, laughing in no real distress. The patient's symptoms - duration 3 to 4 days mostly generalized abdominal discomfort more left than right. The patient had history of diverticulitis 5 years ago. The patient is undergoing workup for gastric bypass, Dr. Mayes in [place]. PHYSICAL EXAMINATION: HEENT: Head normocephalic, atraumatic. Eyes: Extraocular muscles are intact. Pupils are equal, round and reactive to light and accommodation. Ears: No lesions. Nose appeared normal. Throat: No exudate or erythema. NECK: Supple. No JVD, no carotid bruit. No lymphadenopathy or thyromegaly. LUNGS: Decreased breath sounds but clear to auscultation. Percussion note normal. Chest symmetrical. HEART: S1, S2, no S3. No murmurs. No cyanosis or clubbing. No ascites. Pulses: Dorsalis pedis and posterior tibial pulses +1 to +2 bilaterally. ABDOMEN: Soft. Tenderness in the left lower quadrant. Bowel sounds active. No rebound tenderness. No CVA tenderness. No mass felt. EXTREMITIES: No pedal edema. Full range of motion of all extremities, equal. NEUROLOGIC: No focal deficit. Cranial nerves II through XII are grossly intact. No headache. No double vision. SKIN: Not dry. Intact. Turgor - normal. LYMPHATIC: No palpable lymph nodes/no lymphedema. MUSCULOSKELETAL: Normal joints with no swelling. Muscle tone is normal. LABS: Mild leukocytosis noted. CT scan of the abdomen acute diverticulitis, sigmoid. No perforation. No abscess. ASSESSMENT: 1. Acute diverticulitis of sigmoid colon. 2. Hypertension 3. History of atrial fibrillation. 4. Dyslipidemia. 5. Obesity. 6. History of diverticulitis five years ago. PLAN: 1. Continue on IV fluids. 2. Continue IV antibiotics. 3. Telemetry. 4. EKG was done showing sinus rhythm, no acute changes. 5. Chest x-ray in the morning. 6. CBC, CMP. CONDITION: Stable. TIME SPENT: More than 30 minutes. Plan and coordination of the patient's care discussed in the presence of nurse. NEO
--- NOTE | 2021-02-25 12:10 | PN ---
DATE OF SERVICE: 02/23/21 SUBJECTIVE: 65-year-old white female hospitalized with acute diverticulitis. The patient still has pain rated as 7 to 9, still taking Morphine but at the same time doesn't seem to be in any distress at all. REVIEW OF SYSTEMS: CONSTITUTIONAL: No night sweats. No fatigue, malaise, lethargy. No fever or chills. HEENT: Eyes: No visual changes. No eye pain. No eye discharge. ENT: No runny nose. No epistaxis. No sinus pain. No sore throat. No odynophagia. No congestion. RESPIRATORY: No cough, no congestion. No hemoptysis. No shortness of breath. CARDIOVASCULAR: No angina symptoms. No CHF symptoms. No atypical chest pain for CAD. No palpitations. No PND. No orthopnea. GASTROINTESTINAL: No abdominal pain. No nausea or vomiting. No diarrhea or constipation. No hematemesis. No hematochezia. GENITOURINARY: No urgency. No frequency. No dysuria. No hematuria. No obstructive symptoms. No discharge. No pain. No significant abnormal bleeding. MUSCULOSKELETAL: No musculoskeletal pain; no joint swelling. NEUROLOGICAL: No headache. No neck pain. No syncope. No seizures. No dizziness. PSYCHIATRIC: Not anxious. No depression. No suicidal thoughts. No homicidal thoughts. SKIN: No rash. No lesions. No wounds. ENDOCRINE: No unexplained weight loss. No weight gain. HEMATOLOGIC/LYMPHATIC: No anemia. No purpura. No petechiae. No prolonged or excessive bleeding. No palpable lymph nodes. PHYSICAL EXAMINATION: VITAL SIGNS: Temperature 99.5, pulse 70, respiratory rate 18, blood pressure 90/60, pulse ox 95%. HEENT: Head normocephalic, atraumatic. Eyes: Extraocular muscles are intact. Pupils are equal, round and reactive to light and accommodation. Ears: No lesions. Nose appeared normal. Throat: No exudate or erythema. NECK: Supple. No JVD, no carotid bruit. No lymphadenopathy or thyromegaly. LUNGS: Decreased breath sounds but clear to auscultation. Percussion note normal. Chest symmetrical. HEART: S1, S2, no S3. No murmurs. No cyanosis or clubbing. No ascites. Pulses: Dorsalis pedis and posterior tibial pulses +1 to +2 bilaterally. ABDOMEN: Soft. Mild tenderness in the lower quadrant especially left more than right. Bowel sounds active. No CVA tenderness. No mass felt. EXTREMITIES: No edema. Full range of motion of all extremities, equal. NEUROLOGIC: No focal deficit. Cranial nerves II through XII are grossly intact. No headache. No double vision. SKIN: Not dry. Intact. Turgor - normal. LYMPHATIC: No palpable lymph nodes/no lymphedema. MUSCULOSKELETAL: Normal joints with no swelling. Muscle tone is normal. ASSESSMENT: 1. Acute diverticulitis, sigmoid. PLAN: 1. Continue antibiotics, IV Fluids. 2. Flagyl to be continued. 3. Continue Cipro. CONDITION: Stable. ADDENDUM: The patient states she is passing gas. The bowel movement she had was the day before yesterday. At the same time she has been on liquid diet for weight loss program. TIME SPENT: More than 30 minutes. Plan and coordination of the patient's care discussed in the presence of nurse. NEO
[2021-02-25] MEDS: MAG-OX PO SCH (20:21)
[2021-02-25] MEDS: DESYREL PO SCH (20:22)
[2021-02-25] MEDS: ALPRAZOLAM 2 MG PO SCH (20:37)
[2021-02-25] MEDS: DOXEPIN 10 MG PO SCH (20:37)
[2021-02-26 05:07] LABS: BASOPHILS # (AUTO) 0.1 K/uL (0-0.2); BASOPHILS % (AUTO) 1.1 % (0.0-3.0); EOSINOPHILS # (AUTO) 0.2 K/ul (0.0-0.7); EOSINOPHILS % (AUTO) 4.4 % (0.0-7.0); HEMATOCRIT 34.4 % (37.0-47.0); HEMOGLOBIN 12.2 g/dl (12.0-16.0); IMMATURE GRANULOCYTE % (AUTO) 0.2 % (0.0-5.0); LYMPHOCYTES # (AUTO) 2.1 K/uL (0.60-3.4); LYMPHOCYTES % (AUTO) 46.2 (10.0-50.0); MEAN CORPUSCULAR HEMOGLOBIN 31.2 pg (27.0-31.0); MEAN CORPUSCULAR HGB CONC 35.5 (31.8-35.4); MONOCYTES # (AUTO) 0.5 K/uL (0.4-2.0); MONOCYTES % (AUTO) 10.3 (0-10); NEUTROPHILS # (AUTO) 1.7 K/ul (2.0-6.9); NEUTROPHILS % (AUTO) 37.8 % (42.2-75.2); PLATELET COUNT 250 10^3/uL (140-440); RDW COEFFICIENT OF VARIATION 11.9 % (11.6-14.8); RED BLOOD COUNT 3.91 10^6/ul (4.20-5.40); WHITE BLOOD COUNT 4.55 K/ul (4.6-10.2)
[2021-02-26 05:22] LABS: ALANINE AMINOTRANSFERASE 22.6 U/L (0-35); ALBUMIN 3.1 g/dL (3.5-5.0); ALKALINE PHOSPHATASE 38.1 U/L (53-141); BILIRUBIN,TOTAL 0.54 mg/dL (0.2-1.3); BLOOD UREA NITROGEN 9.2 mg/dL (7-17); CALCIUM 7.67 mg/dL (8.4-10.2); CHLORIDE 109.3 mmol/L (98-107); CREATININE 0.91 mg/dL (0.60-1.30); GLUCOSE 96.9 mg/dL (74-106); POTASSIUM 3.51 mmol/L (3.5-5.1); SODIUM 138.3 mmol/L (134.5-145); TOTAL PROTEIN 5.84 g/dL (6.3-8.2)
[2021-02-26 05:46] VITALS: BP 110/63; TEMP 98
[2021-02-26] MEDS: FLAGYL 500 MG/100 ML 500 MG/100 ML BAG IV SCH (05:55)
[2021-02-26] MEDS: CIPRO PO SCH (05:56)
[2021-02-26] MEDS: LASIX TAB PO SCH (05:56)
[2021-02-26] MEDS ORDERED: K-DUR PO SCH (08:30)
[2021-02-26] MEDS: CALCIUM 500 + VIT D 5 MCG (200 IU) TABLET PO SCH (09:26)
[2021-02-26] MEDS: XANAX PO SCH (09:26)
[2021-02-26] MEDS: MULTIVITAMIN TABLET PO SCH (09:28)
[2021-02-26] MEDS: ZEBETA PO SCH (09:28)
[2021-02-26] MEDS: ELIQUIS PO SCH (09:29)
[2021-02-26] MEDS: VILAZODONE 40 MG PO SCH (09:37)
[2021-02-26] MEDS: NON-FORMULARY MEDICATION (Vitamin B Complex Capsule) PO SCH (09:37)
--- NOTE | 2021-02-26 09:42 | PCM.PROG ---
Attending Provider: ATTENDING PROVIDER: Dr. THEODORE VICTORIA This patient is seen with Hanane Newton, Nurse Practitioner. DATE OF SERVICE: 02/26/21 SUBJECTIVE: This 65 year old /WHITE F was hospitalized 02/22/21. The patient is resting comfortably. The patient states pain is significantly improved. She has been up and about walking in the halls. Has not used as much Morphine. Tolerated clear liquids last night and will advance this morning. Very adamant about going home. She has an appointment with psychiatrist this morning. REVIEW OF SYSTEMS: CONSTITUTIONAL: No night sweats. No fatigue, malaise, lethargy. No fever or chills. HEENT: Eyes: No visual changes. No eye pain. No eye discharge. ENT: No runny nose. No epistaxis. No sinus pain. No odynophagia. No congestion. RESPIRATORY: No cough, no congestion. No hemoptysis. No shortness of breath. CARDIOVASCULAR: No angina symptoms. No CHF symptoms. No atypical chest pain for CAD. No palpitations. No orthopnea.. GASTROINTESTINAL: Abdominal pain. No nausea or vomiting. No diarrhea or constipation. No hematemesis. No hematochezia. GENITOURINARY: No urgency. No frequency. No dysuria. No hematuria. No obstructive symptoms. No discharge. No pain. No significant abnormal bleeding. MUSCULOSKELETAL: No musculoskeletal pain; no joint swelling. NEUROLOGICAL: Awake, alert, oriented to time, place and person. No headache. No neck pain. No syncope. No seizures. No dizziness. PSYCHIATRIC: Not anxious. No depression. No suicidal thoughts. No homicidal thoughts. SKIN: No rash. No lesions. No wounds. ENDOCRINE: No unexplained weight loss. No weight gain. HEMATOLOGIC/LYMPHATIC: No anemia. No purpura. No petechiae. No prolonged or excessive bleeding. No palpable lymph nodes. PHYSICAL EXAMINATION: GENERAL: The patient is awake, alert and oriented, lying in bed in no distress. VITAL SIGNS: Temperature 98 F, Pulse 57, Respiratory Rate 20, BP 110/63, Pulse Ox 98% HEENT: Head normocephalic, atraumatic. Eyes: Extraocular muscles are intact. Pupils are equal, round and reactive to light and accommodation. Ears: No lesions. Nose appeared normal. Throat: No exudate or erythema. NECK: Supple. No JVD, no carotid bruit. No lymphadenopathy or thyromegaly. LUNGS: Clear to auscultation. Percussion note normal. Chest symmetrical. HEART: S1, S2, no S3. No murmurs. No cyanosis or clubbing. No ascites. Pulses: Dorsalis pedis and posterior tibial pulses +1 to +2 both sides. ABDOMEN: Soft. Mild abdominal tenderness. Bowel sounds active. No CVA tenderness. No mass felt. EXTREMITIES: No edema. Full range of motion of all extremities, equal. NEUROLOGIC: No focal deficit. Cranial nerves II through XII are grossly intact. No headache. No double vision. SKIN: Not dry. Intact. Turgor-normal. LYMPHATIC: No palpable lymph nodes/no lymphedema. MUSCULOSKELETAL: Normal joints with no swelling. Muscle tone is normal. LAB REVIEW: 02/26/21 04:40 02/26/21 04:40 02/26/21 04:40: Sodium 138.3, Potassium 3.51, Chloride 109.3 H, Carbon Dioxide 23.0, Anion Gap 9.51, BUN 9.2, Creatinine 0.91, Estimated GFR (MDRD) 62.00, BUN/Creatinine Ratio 10.10, Glucose 96.9, Calcium 7.67 L, Total Bilirubin 0.54, AST 34.0, ALT 22.6, Alkaline Phosphatase 38.1 L, Total Protein 5.84 L, Albumin 3.10 L, Globulin 2.74, Albumin/Globulin Ratio 1.13 02/26/21 04:40: WBC 4.55 L, RBC 3.91 L, Hgb 12.2, Hct 34.4 L, MCV 88.0, MCH 31.2 H, MCHC 35.5 H, RDW Coeff of Mayra 11.9, Plt Count 250, Immature Gran % (Auto) 0.2, Neut % (Auto) 37.8 L, Lymph % (Auto) 46.2, [place] % (Auto) 10.3 H, Eos % (Auto) 4.4, Baso % (Auto) 1.1, Neut # (Auto) 1.7 L, Lymph # (Auto) 2.1, [place] # (Auto) 0.5, Eos # (Auto) 0.2, Baso # (Auto) 0.1, Immature Gran # (Auto) 0.0 ASSESSMENT: Please see below. 1. Acute sigmoid diverticulitis 2. History of atrial fibrillation 3. Obesity PLAN: 1. Will advance diet this morning and if tolerated will go home this morning. 2. Cipro 500mg BID for 7 days 3. Flagyl 500mg TID for 7 days 4. Zofran 4mg TID PRN Plan and coordination of the patient's care discussed in the presence of E Commerce Director and nurse. SCRIBED BY: HORTENCIA STROUD Potato Spotter scribed while in presence of service performed by Dr. Victoria/Hanane Newton APRN on 02/26/21 ([id number])
--- NOTE | 2021-02-26 10:32 | CM.DICTOOL ---
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 REFUSES ALL STATINS DUE TO SIDE EFFECTS SURGERIES: HEART CATH LUMBAR SURGERY CERVICAL SPINE SURGERY CHOLECYSTECTOMY HYSTERECTOMY WRIST SURGERY CODE STATUS: FULL CODE LAST VITALS Temp Pulse Resp BP Pulse Ox 98 F 57 L 20 110/63 98 02/26/21 05:40 02/26/21 05:40 02/26/21 05:40 02/26/21 05:40 02/26/21 05:40 TAKE THESE MEDICATIONS AT HOME Alprazolam (Alprazolam 0.5 Mg Tablet) 1 mg PO DAILY [facility] Last Admin: 02/26/21 09:26 Dose: 1 mg Documented by: Apixaban (Apixaban 5 Mg Tab) 5 mg PO BID [facility] Last Admin: 02/26/21 09:29 Dose: 5 mg Documented by: Bisoprolol Fumarate (Bisoprolol Fumarate 5 Mg Tablet) 5 mg PO BID [facility] Last Admin: 02/26/21 09:28 Dose: 2.5 mg Documented by: Calcium/Vitamin D (Calcium Carbonate/Vitamin D3 500 Mg/5 Mcg(200iu) 1 Each Tablet) 1 each PO DAILY [facility] Last Admin: 02/26/21 09:26 Dose: 1 each Documented by: Furosemide (Furosemide 40 Mg Tablet) 40 mg PO QDAC [facility] Last Admin: 02/26/21 05:56 Dose: 40 mg Documented by: Magnesium Oxide (Magnesium Oxide 400 Mg Tablet) 400 mg PO BEDTIME [facility] Last Admin: 02/25/21 20:21 Dose: 400 mg Documented by: Multivitamins (Multivitamin 1 Tab) 1 tab PO DAILY [facility] Last Admin: 02/26/21 09:28 Dose: 1 tab Documented by: Non-Formulary Medication (Vitamin B Complex) 1 cap PO DAILY [facility] Last Admin: 02/25/21 09:14 Dose: 1 cap Documented by: Non-Formulary Medication (Vilazodone [Viibryd]) 40 mg PO DAILY [facility] Last Admin: 02/25/21 09:14 Dose: 40 mg Documented by: Non-Formulary Medication (Doxepin) 10 mg PO BEDTIME [facility] Last Admin: 02/25/21 20:37 Dose: 10 mg Documented by: Non-Formulary Medication (Evolocumab [Repatha Sureclick]) 140 mg SUBCUT EVERY OTHER WEEK [facility] Non-Formulary Medication (Alprazolam [Xanax]) 4 mg PO BEDTIME [facility] Last Admin: 02/25/21 20:37 Dose: 4 mg Documented by: Potassium Chloride (Potassium Chloride 20 Meq Tab) 20 meq PO DAILYWM [facility] Last Admin: 02/26/21 09:28 Dose: 20 meq Documented by: Trazodone HCl (Trazodone Hcl 50 Mg Tablet) 200 mg PO BEDTIME [facility] Last Admin: 02/25/21 20:22 Dose: 100 mg Documented by: COZAAR 100 MG PO DAILY CIPRO 500 MG PO BID X 7 DAYS FLAGYL 500 MG PO TID X 7 DAYS ZOFRAN 4 MG PO TID PRN NAUSEA ( # 15 TABLETS NO REFILLS) ALLERGIES clonidine Adverse Reaction (Verified 05/30/18 16:08) clopidogrel bisulfate [From Plavix] Adverse Reaction (Verified 05/30/18 16:08) cortisone Adverse Reaction (Verified 05/30/18 16:09) enalaprilat [From Vasotec] Adverse Reaction (Verified 05/30/18 16:09) Latex, Natural Rubber Adverse Reaction (Verified 05/30/18 16:08) levothyroxine sodium [From Synthroid] Adverse Reaction (Verified 05/30/18 16:09) Penicillins Adverse Reaction (Verified 05/30/18 16:08) senna Adverse Reaction (Verified 05/30/18 16:08) Rqrjopc-Fob-Dbc Reductase Inhibitor Adverse Reaction (Verified 05/30/18 16:08) antipsychotics Adverse Reaction (Uncoded 08/24/17 12:45) steroids Adverse Reaction (Uncoded 05/30/18 16:09) DISCONTINUED MEDICATIONS NONE NEW PRESCRIPTIONS: CIPRO 500 MG PO BID X 7 DAYS FLAGYL 500 MG PO TID X 7 DAYS ZOFRAN 4 MG PO TID PRN FOR NAUSEA (# 15 TABLETS NO REFILLS) SMOKING: N/A DISEASE SPECIFIC EDUCATION: DIVERTICULAR DIET DIVERTICULITIS COVED PRECAUTIONS LAB REVIEW: 02/26/21 04:40 02/26/21 04:40 02/26/21 04:40: Sodium 138.3, Potassium 3.51, Chloride 109.3 H, Carbon Dioxide 23.0, Anion Gap 9.51, BUN 9.2, Creatinine 0.91, Estimated GFR (MDRD) 62.00, BUN/Creatinine Ratio 10.10, Glucose 96.9, Calcium 7.67 L, Total Bilirubin 0.54, AST 34.0, ALT 22.6, Alkaline Phosphatase 38.1 L, Total Protein 5.84 L, Albumin 3.10 L, Globulin 2.74, Albumin/Globulin Ratio 1.13 02/26/21 04:40: WBC 4.55 L, RBC 3.91 L, Hgb 12.2, Hct 34.4 L, MCV 88.0, MCH 31.2 H, MCHC 35.5 H, RDW Coeff of Mayra 11.9, Plt Count 250, Immature Gran % (Auto) 0.2, Neut % (Auto) 37.8 L, Lymph % (Auto) 46.2, [place] % (Auto) 10.3 H, Eos % (Auto) 4.4, Baso % (Auto) 1.1, Neut # (Auto) 1.7 L, Lymph # (Auto) 2.1, [place] # (Auto) 0.5, Eos # (Auto) 0.2, Baso # (Auto) 0.1, Immature Gran # (Auto) 0.0 PLAN: DISCHARGE: TODAY 02/26/2021, HOME INDEPENDENTLY ACTIVITY: UP TOLERATED WITH FREQUENT REST PERIODS, NO STRENUOUS ACTIVITY DIET: DIVERTICULAR DIET MD FOLLOW UP: SEE DR. VICTORIA / CHARMAINE LOZANO APRN / KELI MENSAH APRN IN THE OFFICE ON SUNDAY, MARCH 07, 2021 @ 1:00 PM CALL [phone] OR GO TO THE NEAREST EMERGENCY ROOM IF CONCERNS DEPENDING ON THE SEVERITY. KEEP OTHER APPOINTMENTS ALSO WITH DR. GABRIELLE DONALD ( NEUROPSYCHIATRIST ) TODAY, @ 1300 OUT PATIENT TEST: CAROTID DOPPLER @ [facility] , February @ 1230 CODE STATUS: FULL CODE MRS TORO IS ALERT AND ORIENTED X 4. SHE IS UP TOLERATED INDEPENDENTLY. RESPIRATORY SYSTEM STABLE AND NO DYSPNEA. SKIN WARM AND DRY AND INTACT WITH VARIOUS SCARS FROM MULTIPLE PAST SURGERIES. CONTINENT OF BOWEL AND BLADDER. LAST BM 02/25/2021. SHE HAS FED SELF AND TOLERATED A BLAND SOFT DIET THIS AM. MINIMAL DISCOMFORT TO LT LOWER ABDOMEN. SHE IS FOLLOWED WITH DR. ANTHONY REGARDING UP AND COMING GASTRIC RESECTION. SHE HAS LOST 30 # IN THE LAST 3 MONTHS WITH DIET INSTRUCTIONS PROVIDED BY DR. ANTHONY. SHE SEES DR. DONALD REGARDING THE EMOTIONAL SIDE OF THE SURGERY. SHE LIVES WITH HER . MD CHARMAINE CORMIER APRN ALYCE HANNAN, APRN
--- NOTE | 2021-02-26 13:42 | PN ---
DATE OF SERVICE: 02/24/2021 SUBJECTIVE: 65 year old white female hospitalized with acute sigmoid diverticulitis. The patient's condition clinically seems to have improved. The patient had a large bowel movement last night, felt better after that. The pain is still listed as a 4 or 5 to 9. She having Morphine Sulfate every 3-4 hours. The patient doesn't seem to be in acute pain. When you talk to her she is laughing. REVIEW OF SYSTEMS: CONSTITUTIONAL: No night sweats. No fatigue, malaise, lethargy. No fever or chills. HEENT: Eyes: No visual changes. No eye pain. No eye discharge. ENT: No runny nose. No epistaxis. No sinus pain. No sore throat. No odynophagia. No congestion. RESPIRATORY: No cough, no congestion. No hemoptysis. No shortness of breath. CARDIOVASCULAR: No angina symptoms. No CHF symptoms. No atypical chest pain for CAD. No palpitations. No PND. No orthopnea. GASTROINTESTINAL: No abdominal pain. No nausea or vomiting. No diarrhea or constipation. No hematemesis. No hematochezia. GENITOURINARY: No urgency. No frequency. No dysuria. No hematuria. No obstructive symptoms. No discharge. No pain. No significant abnormal bleeding. MUSCULOSKELETAL: No musculoskeletal pain; no joint swelling. NEUROLOGICAL: No headache. No neck pain. No syncope. No seizures. No dizziness. PSYCHIATRIC: Not anxious. No depression. No suicidal thoughts. No homicidal thoughts. SKIN: No rash. No lesions. No wounds. ENDOCRINE: No unexplained weight loss. No weight gain. HEMATOLOGIC/LYMPHATIC: No anemia. No purpura. No petechiae. No prolonged or excessive bleeding. No palpable lymph nodes. PHYSICAL EXAMINATION: VITAL SIGNS: Temperature 98, pulse 60, respiratory rate 18, blood pressure 96/56 and pulse ox 97%. HEENT: Head normocephalic, atraumatic. Eyes: Extraocular muscles are intact. Pupils are equal, round and reactive to light and accommodation. Ears: No lesions. Nose appeared normal. Throat: No exudate or erythema. NECK: Supple. No JVD, no carotid bruit. No lymphadenopathy or thyromegaly. LUNGS: Clear to auscultation. Percussion note normal. Chest symmetrical. HEART: S1, S2, no S3. No murmurs. No cyanosis or clubbing. No ascites. Pulses: Dorsalis pedis and posterior tibial pulses +1 to +2 bilaterally. ABDOMEN: Soft. Mild tenderness in the left lower quadrant. No rebound. Flat. Bowel sounds active. No CVA tenderness. No mass felt. EXTREMITIES: No edema. Full range of motion of all extremities, equal. NEUROLOGIC: No focal deficit. Cranial nerves II through XII are grossly intact. No headache. No double vision. SKIN: Not dry. Intact. Turgor - normal. LYMPHATIC: No palpable lymph nodes/no lymphedema. MUSCULOSKELETAL: Normal joints with no swelling. Muscle tone is normal. LABS: Hgb 10, hct 37, WBC 6,000 normal differential, Kidney functions are normal. ASSESSMENT: 1. Acute diverticulitis, sigmoid seems to be better clinically. The patient still has some pain. PLAN: 1. CT scan of the abdomen and pelvis in the morning 2. Cardiovascular status is stable. 3. Blood pressure medication, Cozaar was on hold and Zebeta is half a tablet. TIME SPENT: More than 30 minutes. Plan and coordination of the patient's care discussed in the presence of nurse. NEO
--- NOTE | 2021-02-27 09:26 | HP ---
DATE OF SERVICE: 02/22/21 HISTORY OF PRESENT ILLNESS: 65-year-old white female who complains of lower abdominal pain for the past few days. Denies fever, chills or diarrhea. She has a history of diverticulitis. PAST MEDICAL HISTORY: Atrial fibrillation Carotid stenosis Hepatic steatosis Obesity History of diverticulitis with sciatica Hypertension LVH Dyslipidemia Neuropathy Anemia Degenerative disk disease of the lower spine Osteoarthritis of bilateral knees Left hip osteoarthritis Insomnia History of syncopal episodes Noncompliance with medications, diet, lifestyle, followup PAST SURGICAL HISTORY: Heart catheterization in 2018 which is normal History of L-spine surgery History of C-spine surgery Cholecystectomy Hysterectomy REVIEW OF SYSTEMS: CONSTITUTIONAL: Denies fever. Positive for fatigue. No night sweats. No malaise, lethargy. No chills. HEENT: Eyes: No visual changes. No eye pain. No eye discharge. ENT: No runny nose. No epistaxis. No sinus pain. No sore throat. No odynophagia. No ear pain. No congestion. RESPIRATORY: No cough, no congestion. No hemoptysis. No shortness of breath. CARDIOVASCULAR: No angina symptoms. No CHF symptoms. No atypical chest pain for CAD. No palpitations. No PND. No orthopnea. GASTROINTESTINAL: Positive for lower abdominal pain. No nausea or vomiting. No diarrhea or constipation. No hematemesis. No hematochezia. GENITOURINARY: No urgency. No frequency. No dysuria. No hematuria. No obstructive symptoms. No discharge. No pain. No significant abnormal bleeding. MUSCULOSKELETAL: Positive for lower abdominal pain. No joint swelling. No arthritis. NEUROLOGICAL: No headache. No neck pain. No syncope. No seizures. No dizziness. PSYCHIATRIC: Not anxious. No depression. No suicidal thoughts. No homicidal thoughts. SKIN: No rash. No lesions. No wounds. ENDOCRINE: No unexplained weight loss. No weight gain. HEMATOLOGIC/LYMPHATIC: No anemia. No purpura. No petechiae. No prolonged or excessive bleeding. No palpable lymph nodes. PERSONAL/FAMILY/SOCIAL HISTORY: She is . She lives at home with her . She is a nonsmoker. No alcohol or ilicit drug use. MEDICATIONS: Trazodone 200 mg p.o. bedtime Doxepin 10 mg p.o. bedtime Multivitamin (Centrum Silver) one tab p.o. daily Furosemide 40 mg p.o. daily Alprazolam 1 mg p.o. daily Magnesium Oxide 400 mg p.o. bedtime Cholecalciferol 10,000 unit p.o. daily Apixaban 5 mg p.o. b.i.d. Vitamin B complex one cap p.o. daily Viibryd 40 mg p.o. daily Evolocumab (Repatha SureClick) 140 mg subcut every other week Calcium Citrate 1,000 mg p.o. daily Bisoprolol fumarate 5 mg p.o. b.i.d. Losartan 100 mg p.o. daily Alprazolam 4 mg p.o. bedtime Potassium Chloride 20 mEq p.o. daily ALLERGIES: CLOPIDOGREL, PENICILLIN, [id number]-REDUCTASE INHIBITOR, LATEX (NATURAL RUBBER), SENNA, LEVOTHYROXINE SODIUM (FROM SYNTHROID), CLONIDINE, CORTISONE, ENALAPRILAT (FROM VASOTEC), ANTIPSYCHOTICS, STEROIDS PHYSICAL EXAMINATION: VITAL SIGNS: Temperature 98, heart rate 100, respirations 16, blood pressure 153/136, pulse ox 100%. HEENT: Head normocephalic, atraumatic. Eyes: Extraocular muscles are intact. Pupils are equal, round and reactive to light and accommodation. Ears: No lesions. Nose appeared normal. Throat: No exudate or erythema. NECK: Supple. No JVD, no carotid bruit. No lymphadenopathy or thyromegaly. LUNGS: Diminished breath sounds. Clear to auscultation. Percussion note normal. Chest symmetrical. HEART: S1, S2, no S3. No murmur. No cyanosis or clubbing. No ascites. Pulses: Dorsalis pedis and posterior tibial pulses +1 to +2 bilaterally. ABDOMEN: Diffuse abdominal tenderness, both lower quadrants. Soft. Nontender. Bowel sounds active. No CVA tenderness. No mass felt. EXTREMITIES: No edema. Full range of motion of all extremities, equal. NEUROLOGIC: No focal deficit. Cranial nerves II through XII are grossly intact. No headache, no double vision or headache. SKIN: Not dry. Intact. Turgor - normal. LYMPHATIC: No palpable lymph nodes/no lymphedema. MUSCULOSKELETAL: Normal joints with no swelling. Muscle tone is normal. White count 10.46, hemoglobin 15.4, hematocrit 43.4, platelets 203. Sodium 138, potassium 3.5, BUN 13, creatinine 1.10, glucose 117. CT of the abdomen and pelvis shows acute sigmoid diverticulitis, hepatic steatosis. UA trace leuks. Chest x-ray was normal. Respiratory panel by PCR was normal. ASSESSMENT: 1. ACUTE SIGMOID DIVERTICULITIS 2. ATRIAL FIBRILLATION 3. OBESITY 4. DYSLIPIDEMIA 5. HEPATIC STEATOSIS PLAN: 1. We will admit. 2. Routine telemetry orders. 3. CBC, CMP daily. 4. Start Flagyl 500 mg IV q.8hr. 5. Start Cipro 500 mg p.o. b.i.d. 6. The patient to be NPO. 7. Normal Saline IV at 100 cc/hr. 8. Continue home medications. 9. Zofran 4 mg IV q.6hr p.r.n. for nausea. 10. Morphine 2 mg q.4hr p.r.n. 11. Again continue home medications. 12. Will repeat CT scan tomorrow. 13. Will followup closely. TIME SPENT: More than 70 minutes. MTDD
--- NOTE | 2021-02-27 10:54 | DS ---
DATE OF SERVICE: 02/26/21 FINAL DIAGNOSIS: 1. ACUTE SIGMOID DIVERTICULITIS 2. ATRIAL FIBRILLATION 3. OBESITY HX: 4. BRONCHITIS/PNEUMONITIS 5. CAROTID STENOSIS, 50-69% RIGHT ICA 6. ATRIAL FIBRILLATION - ELIQUIS 7. HEPATIC STEATOSIS 8. DIVERTICULITIS 9. OBESITY 10. LEFT SCIATICA 11. HYPERTENSION 12. LVH 13. OBESITY 14. DYSLIPIDEMIA 15. NEUROPATHY 16. 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 LEFT HIP OSTEOARTHRITIS 20. INSOMNIA 21. SYNCOPAL EPISODES 22. TIA 23. NON-COMPLIANCE WITH CHOLESTEROL MEDICATIONS. REFUSES ALL STATINS DUE TO SIDE EFFECTS. SURGERIES: 24. HEART CATH 25. LUMBAR SURGERY 26. CERVICAL SPINE SURGERY 27. CHOLECYSTECTOMY 28. HYSTERECTOMY 29. WRIST SURGERY LAST VITALS Temp Pulse Resp BP Pulse Ox 98 F 57 L 20 110/63 98 02/26/21 05:40 02/26/21 05:40 02/26/21 05:40 02/26/21 05:40 02/26/21 05:40 DISCHARGE INSTRUCTIONS: 1. DISCHARGE: TODAY 02/26/2021, HOME INDEPENDENTLY. 2. MD FOLLOW UP: SEE DR. VICTORIA/CHARMAINE LOZANO APRN/KELI MENSAH APRN IN THE OFFICE ON SUNDAY, MARCH 07, 2021 @ 1:00 PM, CALL [phone] OR GO TO THE NEAREST EMERGENCY ROOM IF CONCERNS DEPENDING ON THE SEVERITY. KEEP OTHER APPOINTMENTS ALSO WITH DR. ANTHONY, DR. DONALD (NEUROPSYCHIATRIST) TODAY @ 1300. 3. OUTPATIENT TEST: CAROTID DOPPLER @ [facility] [place] [facility], February @ 1230. MEDICATIONS AT DISCHARGE: Alprazolam (Alprazolam 0.5 Mg Tablet) 1 mg PO DAILY [facility] Last Admin: 02/26/21 09:26 Dose: 1 mg Documented by: Apixaban (Apixaban 5 Mg Tab) 5 mg PO BID [facility] Last Admin: 02/26/21 09:29 Dose: 5 mg Documented by: Bisoprolol Fumarate (Bisoprolol Fumarate 5 Mg Tablet) 5 mg PO BID [facility] Last Admin: 02/26/21 09:28 Dose: 2.5 mg Documented by: Calcium/Vitamin D (Calcium Carbonate/Vitamin D3 500 Mg/5 Mcg(200iu) 1 Each Tablet) 1 each PO DAILY [facility] Last Admin: 02/26/21 09:26 Dose: 1 each Documented by: Furosemide (Furosemide 40 Mg Tablet) 40 mg PO QDAC [facility] Last Admin: 02/26/21 05:56 Dose: 40 mg Documented by: Magnesium Oxide (Magnesium Oxide 400 Mg Tablet) 400 mg PO BEDTIME [facility] Last Admin: 02/25/21 20:21 Dose: 400 mg Documented by: Multivitamins (Multivitamin 1 Tab) 1 tab PO DAILY [facility] Last Admin: 02/26/21 09:28 Dose: 1 tab Documented by: Non-Formulary Medication (Vitamin B Complex) 1 cap PO DAILY [facility] Last Admin: 02/25/21 09:14 Dose: 1 cap Documented by: Non-Formulary Medication (Vilazodone ) 40 mg PO DAILY [facility] Last Admin: 02/25/21 09:14 Dose: 40 mg Documented by: Non-Formulary Medication (Doxepin) 10 mg PO BEDTIME [facility] Last Admin: 02/25/21 20:37 Dose: 10 mg Documented by: Non-Formulary Medication (Evolocumab ) 140 mg SUBCUT EVERY OTHER WEEK [facility] Non-Formulary Medication (Alprazolam ) 4 mg PO BEDTIME [facility] Last Admin: 02/25/21 20:37 Dose: 4 mg Documented by: Potassium Chloride (Potassium Chloride 20 Meq Tab) 20 meq PO DAILYWM [facility] Last Admin: 02/26/21 09:28 Dose: 20 meq Documented by: Trazodone HCl (Trazodone Hcl 50 Mg Tablet) 200 mg PO BEDTIME [facility] Last Admin: 02/25/21 20:22 Dose: 100 mg Documented by: COZAAR 100 MG PO DAILY CIPRO 500 MG PO BID X 7 DAYS FLAGYL 500 MG PO TID X 7 DAYS ZOFRAN 4 MG PO TID PRN NAUSEA ( # 15 TABLETS NO REFILLS) NEW PRESCRIPTIONS: CIPRO 500 MG PO BID X 7 DAYS FLAGYL 500 MG PO TID X 7 DAYS ZOFRAN 4 MG PO TID PRN FOR NAUSEA (# 15 TABLETS NO REFILLS) DISCONTINUED MEDICATIONS: NONE DIET INSTRUCTIONS: DIVERTICULAR DIET ACTIVITY: UP TOLERATED WITH FREQUENT REST PERIODS, NO STRENUOUS ACTIVITY SMOKING: N/A DISEASE SPECIFIC EDUCATION: DIVERTICULAR DIET DIVERTICULITIS COVED PRECAUTIONS HOSPITAL COURSE: This is a 65-year-old white female who is admitted through the emergency room with acute sigmoid diverticulitis per CT. She was admitted, placed on Flagyl 100 IV q.8 along with Cipro p.o. She was made NPO for 48 hours. Her pain improved. Initially she was taking Morphine 2 to 3 mg q.3 to 4 hours pretty steadily. Over the course of the past 24 hours she states her pain has significantly decreased. This morning she wants to try breakfast. Last night she had some clear liquids and tolerated this well. She has had no diarrhea, no fever. She has just reported lower abdominal pain and tenderness, which this has improved since being admitted. She is very insistent on going home today. She agrees to eat a bland breakfast. She will go home on Cipro p.o. 500 b.i.d. for the next 7 days along with Flagyl 500 t.i.d. for the next 7 days. She did have a repeat CT scan on the third day which showed improvement in the diverticulitis. No abscess noted. She has been up and about walking the halls. She has an appointment with her psychiatrist this afternoon and she states she has a sick relative and is very insistent that she is leaving today. Information has been provided to her regarding a diverticular diet, low residual. She will go home on these medications. Will followup with her in the office next week. TIME SPENT: More than 60 minutes. NEO
--- NOTE | 2021-02-27 11:13 | PN ---
DATE OF SERVICE: 02/25/2021 SUBJECTIVE: The patient was seen and examined with the Nurse Practitioner. The patient's condition seems to be improving with acute diverticulitis. Continue Flagyl and Cipro. The patient had a large bowel movement last night. Repeat CT scan showed possible some improvement no perforation, no abscess. TIME SPENT: More than 30 minutes. Plan and coordination of the patient's care discussed in the presence of nurse. NEO
--- NOTE | 2021-02-27 13:40 | PN ---
DATE OF SERVICE: 02/26/2021 SUBJECTIVE: The patient was doing well, up and about and not requiring much Morphine Sulfate at all. She had good bowel movement. Condition has improved. Tolerating liquids very well. She wants to go home. She is talking about it all the time. Advised to stay maybe one more day and she declined. We will discharge her on antibiotics. Discussed with her and advised her to walk around as much as she could. Strenuous activity needs to be avoided. The patient is going to bee in the office in 5-7 days. Advised to go to the nearest emergency room incase if she has acute abdominal pain. CONDITION: Stable TIME SPENT: More than 30 minutes. Plan and coordination of the patient's care discussed in the presence of nurse. NEO
--- NOTE | 2021-02-27 13:40 | PN ---
02/22/2021: Level 5 02/23/2021: Intermediate 02/24/2021: Intermediate 02/25/2021: Intermediate 02/26/2021: D as in discharge MTDD
== END 2021-02-26 12:25 | disposition home or self-care (01) | DRG 310 ==
LOC: ED 13:11 → MEDSURG A 20:02
PROVIDERS: ADMIT Internal Medicine; ATTEND Internal Medicine
DX: I48.91 Unspecified atrial fibrillation; E66.9 Obesity, unspecified; K59.00 Constipation, unspecified; Z20.822 Contact with and (suspected) exposure to COVID-19; E78.5 Hyperlipidemia, unspecified; E88.89 Other specified metabolic disorders; R10.813 Right lower quadrant abdominal tenderness; R11.0 Nausea